=== PATIENT | female | born 1975 | race Caucasian/White ===

== ENCOUNTER 2025-02-15 23:19 | Emergency (ER) | payer MEDICAID, SELFPAY ==
--- OUTSIDE RECORDS SUMMARY | 2007-08-11 03:40 | XMS_ITS | Continuity of Care Document ---
Author Organization [facility] Address [address] [place] [address] Phone Care Team Providers Care Unit Support Representative Name Role Phone Tran Lewis CNP Unavailable Unavailab le Allergies, Adverse Reactions, Alerts Substance Reaction Status Criticality rofecoxib Active No Information TRAZODONE HCL Active No Information risperidone Active No Information KETOROLAC TROMETHAMINE Active No In formation tramadol Active No Information clindamycin Active No Information CEFUROXIME AXETIL Active No Informa tion WARNIN allergy(ies) could not be collected because the type is not supported. Please contact the source practice for further details. Medications Medication Instructions Dosage Effective Dates (start - stop) Status Comments Lidoderm 5 % (700 mg/patch) Adhesive Patch Apply 1 patch to skin for up to 12 hours out of a 24 hour period(script refused by patient due to lack of insurance coverage) - No Longer Active Vicodin 5 mg-500 mg Tab 1CAP PO Q4H - No Longer Active Zantac 150 mg Tab No Longer Active ALBUTEROL 90MCGAEROSOL - No Longer Active Vistaril 25 mg Cap 1CAP PO Q6H No Longer Active Klonopin 1 mg Tab 1CAP PO QD No Longer Active Lamictal 25 mg Tab No Longer Active WELLBUTRIN XL 300MGTABLET - No Longer Active Celexa 10 mg Tab - No Longer Active Procedures Procedure Date Offic Cons New/estab Mod-hi 60 08 Advance Directives Directive Yes / No Effective Date File Name No Information Encounters Encounter Description Practice Location Reason(s) For Visit Diagnoses Date Provider Providers Copied on Encounter Offic Cons New/estab Mod-hi [facility], [address], [place], [place], [id number], [place] tel:[phone] [facility] No Information 8 Elvin[address] Tran. [address], [address], [place], [place], [address], [place]. tel:[phone] Referring Provider: Gilson Ching MD, [address] [place], [address]. tel:[phone] Family History Family Member Type Diagnosis Age At Onset No Information Payers Payer name Insurance type Covered republican ID Authorbaljita tilorna(s) [employer] [id number] Social History Type Description Quantity Date Captured Comments Sex Female Smoking Status No Information Chief Complaint And Reason For Visit No Information Reason For Referral Reason For Referral No Information History Of Present Illness Encounter Date Complaint History Of Prese nt Illness No Information Functional Status Date Functional Assessmen t No Information Medications Administered Medication Instructions Dosage Effective Dates (start - stop) Status Comments Vicodin 5 mg-500 mg Tab 1CAP PO Q4H - No Longer Active Zantac 150 mg Tab No Longer Active ALBUTEROL 90MCGAEROSOL - No Longer Active Vistaril 25 mg Cap 1CAP PO Q6H No Longer Active Klonopin 1 mg Tab 1CAP PO QD No Longer Active Lamictal 25 mg Tab No Longer Active WELLBUTRIN XL 300MGTABLET - No Longer Active Celexa 10 mg Tab - No Longer Active Instructions Date Instruction Additional Infor mation No Information Assessments Type Assessment Date No Information Patient Care Teams Name Effective Dates (start - stop) Status Members No Information
--- OUTSIDE RECORDS SUMMARY | 2024-08-30 10:31 | XMS_ITS | Continuity of Care Document ---
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 Name Role Phone Simona Pereira CRNA Unavailable Unavailable Allergies, Adverse Reactions, Alerts Substance Reaction Status Criticality CEFUROXIME AXETIL Active No Informa tion ibuprofen Gastric Sleeve Active No Informatio n Sulfa (Sulfonamide Antibiotics) Angioedema Active No Information Medications Medication Instructions Dosage Effective Dates (start - stop) Status Comments escitalopram 20 mg tablet take 1 tablet by oral route every day 20 MG - Active lurasidone 40 mg tablet take 1 tablet by oral route every day with food (at least 350 calories) 40 MG - Active clonazepam 0.5 mg tablet take 1 tablet by oral route 2 times every day 0.5 MG - Active gabapentin 400 mg capsule take 1 capsule by oral route 3 times every day 400 MG - Active hydroxyzine HCl 50 mg tablet take 3 tablet by oral route every day 150 MG - Active propranolol 10 mg tablet take 2 tablet by oral route 3 times every day 20 MG - Active amitriptyline 100 mg tablet take 1 tablet by oral route every day at bedtime 100 MG - Active ZEPBOUND (unknown strength) inject by subcutaneous route every week for 4 weeks Not Available - No Longer Active Procedures Procedure Date Colonoscopy Flex; Dx (jan Pro) 25 Advance Directives Directive Yes / No Effective Date File Name No Information Encounters Encounter Description Practice Location Reason(s) For Visit Diagnoses Date Provider Providers Copied on Encounter [facility], [address] [address], [place], [place], [address], [place] tel:[phone] [facility] No Information 5 Randall Jarvis. [address], [place], [address] , [place]. tel: [phone] Referring Provider: Jaja Hart, [address], [place], [address] . tel:[phone] [facility], [address] [address], [place], [place], [address], [place] tel:[phone] [facility] GI Symptoms or Concerns (chief complaint) Hemorrhoids, unspecified hemorrhoid typeConstipation, unspecifiedDivertic ulosis of large intestine without perforation or abscess without bleedingUnspecified hemorrhoidsDivertic ulosis of large intestine without perforation or abscess without bleeding 5 Antonette Wilkinson. [address], [address] [facility] [address], [place], [address] , [place]. tel: [phone] Referring Provider: Ryan Mathew [facility], [address], [place], [address]. tel:[phone] [facility], [address] [address], [place], [place], [address], [place] tel:[phone] [facility] No Information 5 Apolinar Chavez. [address], [address] [facility] [address], [place], [id number] , [place]. tel: [phone] Family History Family Member Type Diagnosis Age At Onset Daughter Problem (finding) Asthma Mother Problem (finding) Gallbladder disease Sister Problem (finding) Asthma Father Problem (finding) Alcoholism Immunizations Vaccine Date Status Comments Influenza, recombinant, trivalent, injectable, preservative free administered Note: [facility] bi-direct ional interface ; Source: Other Registry SARS-COV-2 (COVID-19) vaccin e, mRNA, spike protein, LNP, preservative free, wilfredo-sucrose, 30 mcg/0.3 mL dose administered Note: [facility] bi-direct ional interface ; Source: Other Registry Afluria Qd administered Note: [facility] bi-directional interface ; Source: Other Registry SARS-COV-2 (COVID-19) vaccin e, mRNA, spike protein, LNP, preservative free, 50 mcg/0.5 mL dose administered Note: [facility] bi-direct ional interface ; Source: Other Registry SARS-COV-2 (COVID-19) vaccin e, mRNA, spike protein, LNP, bivalent, preservative free, 30 mcg/0.3 mL dose, wilfredo-sucrose formulation administered Note: [facility] bi-direct ional interface ; Source: Other Registry Havrix administered Note: [facility] bi-d irectional interface ; Source: Other Registry Havrix administered Note: [facility] bi-d irectional interface ; Source: Other Registry tetanus toxoid, reduced diphtheria toxoid, and acellular pertussis vaccine, adsorbed administered Note: [facility] b i-directional interface ; Source: Other Registry Pneumococcal conjugate vacci ne 20-valent (PCV20), polysaccharide COP009 conjugate, adjuvant, preservative free administered Note: [facility] bi-direct ional interface ; Source: Other Registry SARS-COV-2 (COVID-19) vaccin e, mRNA, spike protein, LNP, preservative free, 100 mcg/0.5mL dose or 50 mcg/0.25mL dose administered Note: [facility] bi -directional interface ; Source: Other Registry SARS-COV-2 (COVID-19) vaccin e, mRNA, spike protein, LNP, preservative free, 100 mcg/0.5mL dose or 50 mcg/0.25mL dose administered Note: [facility] bi -directional interface ; Source: Other Registry SARS-COV-2 (COVID-19) vaccin e, mRNA, spike protein, LNP, preservative free, 100 mcg/0.5mL dose or 50 mcg/0.25mL dose administered Note: [facility] bi -directional interface ; Source: Other Registry Influenza, split virus, trivalent, injectable, contains preservative administered Note: [facility] bi-direct ional interface ; Source: Other Registry tetanus toxoid, reduced diphtheria toxoid, and acellular pertussis vaccine, adsorbed administered Note: [facility] b i-directional interface ; Source: Other Registry Engerix-B administered Note: [facility] bi-d irectional interface ; Source: Other Registry Engerix-B administered Note: [facility] bi-d irectional interface ; Source: Other Registry Pneumovax 23 administered Note: [facility] bi-d irectional interface ; Source: Other Registry Engerix-B administered Note: [facility] bi-d irectional interface ; Source: Other Registry Influenza, split virus, trivalent, injectable, preservative free administered Note: [facility] bi-direct ional interface ; Source: Other Registry Twinrix administered Note: [facility] bi-d irectional interface ; Source: Other Registry tetanus toxoid, reduced diphtheria toxoid, and acellular pertussis vaccine, adsorbed administered Note: [facility] b i-directional interface ; Source: Other Registry tetanus toxoid, adsorbed administered Not e: [facility] bi-directional interface ; Source: Other Registry Payers Payer name Insurance type Covered alliance party ID Authoriza tion(s) [facility] [id number] Social History Type Description Quantity Date Captured Comments Sex Female Smoking Status No Information Chief Complaint And Reason For Visit No Information Reason For Referral Reason For Referral No Information History Of Present Illness Encounter Date Complaint History Of Prese nt Illness GI Symptoms or Concerns Functional Status Date Functional Assessmen t No Information Instructions Date Instruction Additional Infor mation Hemorrhoids (Internal) Related t o Hemorrhoids, unspecified hemorrhoid type Diverticulosis/Diverticulitis Re lated to Hemorrhoids, unspecified hemorrhoid type Hemorrhoids (External) Related t o Hemorrhoids, unspecified hemorrhoid type Assessments Type Assessment Date No Information Patient Care Teams Name Effective Dates (start - stop) Status Members No Information
[2025-02-15 23:27] VITALS: BP 153/110; PULSE 97; RESP 16; TEMP 36.6; O2SAT 99; BMI 33.1
--- NOTE | 2025-02-15 23:37 | CRLHL7_ITS ---
For Patients: As a result of the Cures Act, medical imaging exams and procedure reports are released immediately into your electronic medical record. You may view this report before your referring provider. If you have questions, please contact your health care provider. Indication: Injury, fall, pain Technique: Three views of the right shoulder Comparison: None Findings/Impression: Chronic fracture deformity and moderate osteoarthritis with no acute radiographic abnormality appreciated. Dictated by Sachin Geiger MD @ 02/16/2025 12:04:23 AM (Electronically Signed)
--- NOTE | 2025-02-15 23:38 | CRLHL7_ITS ---
For Patients: As a result of the Century Cures Act, medical imaging exams and procedure reports are released immediately into your electronic medical record. You may view this report before your referring provider. If you have questions, please contact your health care provider. INDICATION: Wrist Injury, fall, pain, fall down stairs TECHNIQUE: Wrist radiograph 3 views right COMPARISON: None FINDINGS: Bone: No acute fractures or aggressive bone lesions are identified. Joint: The radiocarpal, carpal, and carpometacarpal joints are unremarkable in appearance. Soft tissue: Unremarkable. No radiopaque foreign bodies are seen. IMPRESSION: 1. No acute osseous injuries are noted. Dictated by: Shane [place] MD @ 02/16/2025 00:05:09 (Electronically Signed)
--- NOTE | 2025-02-16 00:42 | ED.UPPEXIN ---
HPI - Extremity Injury (Upper) General Time Seen by Provider: 00:42 Date Seen: 02/16/25 Chief Complaint: Extremity Pain/Injury, Upper Stated Complaint: fall, right arm pain Time Seen by Provider: 02/16/25 00:01 Source: patient Mode of arrival: ambulatory History of Present Illness HPI narrative: Yomaira is a 49 year female who presents the emergency department for evaluation of right upper extremity pain. Patient reports that earlier tonight she was trying to help a friend caring a chair when she accidentally lost her balance, when she tried to brace herself an fell onto her right arm. Patient complains of pain to her right shoulder, right wrist. Patient denies any tingling, numbness, tried Tylenol with no improvement of symptoms. Patient reports pain is worse with movement. Patient is not on chronic anticoagulation. No other complaints. Related Data Home Medications ?Medication ?Instructions ?Recorded ?Confirmed amitriptyline 100 mg tablet 100 mg PO QHS 02/15/25 02/15/25 citalopram 20 mg tablet (Celexa) 20 mg PO DAILY 02/15/25 02/15/25 clonazepam 0.5 mg tablet 0.25 mg PO BID 02/15/25 02/15/25 gabapentin 300 mg capsule 300 mg PO BID 02/15/25 02/15/25 hydroxyzine HCl 50 mg tablet 50 mg PO QID 02/15/25 02/15/25 lurasidone 40 mg tablet (Latuda) 40 mg PO QPM 02/15/25 02/15/25 propranolol 10 mg tablet 10 mg PO Q12H 02/15/25 02/15/25 Allergies Allergy/AdvReac Type Severity Reaction Status Date / Time cefuroxime (From Ceftin) Allergy Hives Verified 02/15/25 23:33 droperidol Allergy Anxiety Verified 02/15/25 23:33 Sulfa (Sulfonamide Allergy Swelling Verified 02/15/25 23:33 Antibiotics) of Lip/Tongue/Throat topiramate (From Topamax) Allergy hive Verified 02/15/25 23:33 ketorolac (From Toradol) AdvReac Anxiety Verified 02/15/25 23:33 NSAIDS (Non-Steroidal AdvReac Verified 02/15/25 23:33 Anti-Inflamma tramadol AdvReac Anxiety Verified 02/15/25 23:33 Exam Narrative: Exam Narrative: General: Afebrile, in distress secondary to pain HEENT: Normocephalic, atraumatic, conjunctiva normal. MMM Neck: non-tender, supple Cardio: regular rate. regular rhythm Resp: Normal work of breathing, no respiratory distress, lungs clear bilaterally, no wheezing, rhonchi, rales Chest/Back: no visual signs of trauma, no midline tenderness, no CVA tenderness Abdomen: soft, non distension, no tenderness, no peritoneal signs Neuro: alert and fully oriented. CN II-XII grossly intact. Grossly normal strength and sensation in all extremities. MSK: no deformities. Normal active and passive range of motion however limited due to pain. Diffuse tenderness to palpation to right shoulder, right wrist with no obvious deformities, distally neurovascular intact Integumentary/Skin: no rash visualized, normal color Psych: normal affect, normal behavior Const: Vital Signs, click to edit/add: Vital Signs - 24 hr 02/15/25 23:27 Temperature 97.8 F Pulse Rate [Pulse Oximeter] 97 Respiratory Rate 16 Blood Pressure [Ri ght Upper Arm] 153/110 H Pulse Oximetry 99 Oxygen Delivery Me thod Room Air Course Vital Signs Vital signs: Initial Vital Signs Temperature 97.8 F 02/15/25 23:27 Temperature Source Temporal Artery Scan 02/15/25 23:27 Pulse Rate 97 02/15/25 23:27 Respiratory Rate 16 02/15/25 23:27 Blood Pressure 153/110 H 02/15/25 23:27 Blood Pressure Mean 124 H 02/15/25 23:27 Blood Pressure Position Sitting 02/15/25 23:27 Pulse Oximetry 99 02/15/25 23:27 Oxygen Delivery Method Room Air 02/15/25 23:27 Vital Signs Temperature 97.8 F 02/15/25 23:27 Pulse Rate 97 02/15/25 23:27 Respiratory Rate 16 02/15/25 23:27 Blood Pressure 153/110 H 02/15/25 23:27 Pulse Oximetry 99 02/15/25 23:27 Oxygen Delivery Method Room Air 02/15/25 23:27 Temperature 97.8 F 02/15/25 23:27 Pulse Rate 97 02/15/25 23:27 Respiratory Rate 16 02/15/25 23:27 Blood Pressure 153/110 H 02/15/25 23:27 Pulse Oximetry 99 02/15/25 23:27 Oxygen Delivery Method Room Air 02/15/25 23:27 MDM - Extremity Injury (Upper) MDM Narrative Medical decision making narrative: Yomaira is a 49 year female who presents the emergency department for evaluation of right upper extremity pain. Upon arrival patient is nontoxic appearing, afebrile, in distress secondary to pain. Patient hypertensive upon arrival but otherwise hemodynamically stable. On examination patient with tenderness to patient to her right shoulder as well as her right wrist. Patient does have full active and passive range of motion however does report pain with range of motion. Distally neurovascular intact. No obvious deformities. Patient was treated with oxycodone, ice upon arrival. I personally reviewed interpreted x-rays of the right shoulder and right wrist. Right shoulder with chronic fracture deformity a moderate osteoarthritis with no acute fracture dislocation. X-ray of the wrist with no acute fracture or dislocation. I discussed results with patient. Patient was placed into a wrist brace/splint for comfort. Recommend ice, Tylenol, oxycodone as needed for severe pain. Encourage close outpatient follow-up in the next 5-7 days if no improvement of symptoms for repeat imaging. Return precautions discussed. Patient understands and agrees with the plan. Discharge Plan Discharge Clinical Impression: Acute shoulder pain, Acute pain of right wrist Patient Disposition: Home, Self-Care Condition: Stable Additional Instructions: Please follow-up with your primary care provider in the next 5-7 days for further evaluation and follow-up if you continue to have pain. You may need repeat x-rays at this time. Please ice, take Tylenol 1000 mg every 6 hours as needed for pain. Please take oxycodone 1 tablet every 6 hours as needed for severe pain. Wear wrist splint for comfort. Please bear weight as tolerated. Return to the emergency department if any worsening symptoms. It was a pleasure taking care of you today. We hope you feel better soon. Prescriptions: No Action citalopram [Celexa] 20 mg tablet 20 mg PO DAILY gabapentin 300 mg capsule 300 mg PO BID hydroxyzine HCl 50 mg tablet 50 mg PO QID propranolol 10 mg tablet 10 mg PO Q12H lurasidone [Latuda] 40 mg tablet 40 mg PO QPM Rx Instructions: must administer with food (at least 350 calories) amitriptyline 100 mg tablet 100 mg PO QHS clonazepam 0.5 mg tablet 0.25 mg PO BID Follow Up/Referrals: Provider,Not a Local [Primary Care Provider, Family Practice] Stand Alone Forms: 908 Devices Info Instructions
--- OUTSIDE RECORDS SUMMARY | 2025-02-16 01:29 | XMS_ITS | Patient Health Record ---
Author Organization [facility] Address [address] [place] [address] [place] [address] Care Team Providers Care Configuration Engineer Name Role Phone ALFONSO BRADSHAW PA-C Primary Care Provider Unavailab le Allergies Allergen (clinical drug ingredient) Drug/Non Drug Allergy documented on EMR Reaction Allergy Type Onset Date Status Ceftin rash Drug Allergy Active droperidol Droperidol anxiety Drug Allergy Activ e Haldol hallucinations Drug Allergy Ac tive risperidone Risperdal unknown Drug Allergy Activ e quetiapine SEROquel Unknown Drug Allergy Active topiramate Topiramate hives Drug Allergy Activ e Sulfa (Sulfonamide Antibiotics) edema Drug Allergy Active rofecoxib Vioxx (uncoded) nausea and vomiting Allergy Active tramadol Tramadol (uncoded) other Allergy Active ketorolac Toradol (uncoded) other Allergy Ac tive clindamycin Clindamycin (uncoded) nausea and vomiting Allergy Active trazodone Trazodone (uncoded) hallucinations Allergy Active quetiapine Quetiapine (uncoded) agitation Allergy Active cortisone Cortisone Unknown Drug Allergy Active Non-steroidal anti-inflammatory agent (FN) NSAIDs Unknown Drug Allergy Active risperidone Risperidone Unknown Drug Allergy Act juliana Reason For Referral No Information Medications Medication SIG (Take, Route, Frequency, Duration) Notes Start Date End Date Status Acetaminophen PRN Active Multi Complete/Iron - 1 chewable tablet Orally once a day Procare Active Varenicline Tartrate 1 MG 1 tablet Orally Twice a day Active Gabapentin 800 MG 1 tablet Orally three times per day anxiety Active Melatonin 5 MG 1 tablet in the evening Orally Once a day; Duration: 30 day(s) PRN Active Wixela Inhub 100-50 MCG/DOSE 1 puff Inhalation Twice a day Active busPIRone HCl 30 MG 1 tablet Orally Twice a day anxiety/mood Active Propranolol HCl ER 80 MG 1 capsule Orally twice a day axienty/mood Active hydrOXYzine HCl 50 MG 1 tablet Orally 4 times per day aniety/depressio n Active Omeprazole 20 MG 1 capsule 30 minutes before morning meal Orally Once a day; Duration: 30 day(s) Active Albuterol Sulfate HFA 108 (90 Base) MCG/ACT 2 puffs as needed Inhalation every 6 hrs asthma as needed Active Amitriptyline HCl 100 MG 2 tablet Orally Once a day at bedtime SLEEP Active Other Calcium 1 tablet orally three times per day Active Ondansetron 4 MG 2 tablets Orally every 8 hours prn PRN Active Robaxin 500 MG 1 tablets Orally once a day as needed Unknown Social History Tobacco Use: Social History Observation Description Date Details (start date - stop date) Former Smoker NA - NA Tobacco Use/Smoking Question Answer Notes Are you a former smoker Tobacco use other than smoking: Question Answer Notes Are you an other tobacco user? Yes v aping---VAPING STOPPED Section Notes: Quit smoking 09/11/18. No Met hamphetamine use since May 2017 & no opioids or marijuana since November 2015 Quit smoking 09/11/18. No Methamphetamine use since May 2017 & no opioids or marijuana since November 2015 Pt fully vaccinated. Quit smoking 09/11/18. No Methamphetamine use since May 2017 & no opioids or marijuana since November 2015 Pt fully vaccinated. Quit smoking 09/11/18. No Met hamphetamine use since May 2017 & no opioids or marijuana since November 2015 Quit smoking 09/11/18. No Met hamphetamine use since May 2017 & no opioids or marijuana since November 2015 Quit smoking 09/11/18. No Met hamphetamine use since May 2017 & no opioids or marijuana since November 2015 Quit smoking 09/11/18. No Met hamphetamine use since May 2017 & no opioids or marijuana since November 2015 Problems Problem Type SNOMED Code ICD Code Onset Dates Problem Status W/U Status Risk Notes Problem Essential hypertension (32417439) Essential hypertension (I10) Active confirmed Problem Heartburn (73997952) Heartburn (R12) Active confirmed Problem Epigastric pain (66485565) Epigastric pain (R10.13) Active confirmed Problem Nausea (180349574) Nausea (R11.0) Active confir med Problem Obesity (504266155) Obesity, Class I & II (E66.09) Active confirmed Problem Obstructive sleep apnea syndrome (disorder) (70577739) Obstructive sleep apnea (adult) (pediatric) (G47.33) Active confirmed Problem Chronic pain (27126336) Other chronic pain (G89.29) Active confirmed Problem Pain of right knee region (finding) (656464444726032) Pain in right knee (M25.561) Active confirmed Problem Pain of left knee joint (finding) (712074692806446) Pain in left knee (M25.562) Active confirmed Problem History of bariatric surgical procedure (392502335) Bariatric surgery status (Z98.84) Active confirmed Problem 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 (770011626) Dependence on other enabling machines and devices (Z99.89) Active confirmed Problem Former smoker (3382845) Former smoker (Z87.891) Active confirmed Problem Body mass index 40+ - severely obese (133595459) BMI 45.0-49.9, adult (Z68.42) Active confirmed Problem Body mass index 40+ - morbidly obese (943028351) BMI 40.0-44.9, adult (Z68.41) Active confirmed Problem Postoperative follow-up visit (551665173) Post op follow-up exam (Z48.89) Active confirmed Problem Body mass index 40+ - severely obese (492402169) BMI 50.0-59.9, adult (Z68.43) Active confirmed Problem Ex-smoker (finding) (6073612) History of cigarette smoking (Z87.891) Active confirmed Problem Dietary management surveillance (486958008) Dietary counseling (Z71.3) Active confirmed Problem History of methamphetamine abuse (86556216951627048 ) History of methamphetamine abuse (Z87.898) Active confirmed Problem Postoperative care (regime/therapy) (507072609) Encounter for postoperative care (Z48.89) Active confirmed Problem Constipation (40937638) Constipation, unspecified constipation type (K59.00) Active confirmed Problem Smoking (31355549) Smoking (F17.200) Active con firmed Problem Obese class II (584217512585466) BMI 36.0-36.9,adult (Z68.36) Active confirmed Problem Weight gain (701640745) Weight gain (R63.5) Active confirmed Problem Morbid obesity (393124882) Morbid obesity due to excess calories (E66.01) Active confirmed Problem Electronic cigarette user (finding) (552600526) Electronic cigarette use (Z78.9) Active confirmed Problem History of bariatric surgical procedure (688219121) Status post bariatric surgery (Z98.84) Active confirmed Problem Asthma without status asthmaticus (17593098) Asthma, unspecified asthma severity, unspecified whether complicated, unspecified whether persistent (J45.909) Active confirmed Problem Sleep apnea (11392910) Sleep apnea in adult (G47.30) Active confirmed Problem Insomnia (713600344) Insomnia, unspecified type (G47.00) Active confirmed Problem History of opioid abuse (323147349732459) History of opioid abuse (Z87.898) Active confirmed Problem Body mass index 40+ - severely obese (896961931) Body mass index [BMI] 45.0-49.9, adult (Z68.42) Active confirmed Plan Of Treatment No Information Insurance Providers Payer Name Payer Address Payer Phone Subscriber Number Group Number Insured Name Patient Relationship to Insured Coverage Start Date Coverage End Date [facility] [address] [place] [phone] [id number] SÁNCHEZ LUACS Self - patient is the insured Medical (General) History Medical History History ICD Code morbid obesity, class III - BMI 40-49.9 other specified viral warts schizophrenia bipolar I disorder personality disorder panic disorder without agoraphobia unspecified asthma cough palpitations esophageal reflux ovarian cyst PTSD unspecified drug dependence Meth/opiates high blood pressure Depression Anxiety Sleep Apnea-CPAP ( no cpap) Sleeve Vertigo acute pain of left knee tobacco abuse - former smoker - quit 09/20 DVT asthma urinary frequency f/h breast cancer - maternal aunt, pater nal grandmother constipation binge eating disorder Surgical History Surgery Date(Month/Year) tubal ligation 2002 imo remove replace antibiot beads, knee LEFT RIGHT knee surgery 07/24/2020 hysterectomy dental procedure x 2 upper GI endoscopy - Dr Kaur Solano (1) lap sleeve gastrectomy; (2) TAP block; (3) intraoperative endoscopy - Dr Kaur Solano 01/30/2019 left knee surgery 05/14/2020 left carpal tunnel 12/11/2020 RIGHT rotar cuff surgery Hospitalization History Reason Date(Month/Year) Mental health ( over 10 years ago) Previous surgeries x 2
--- OUTSIDE RECORDS SUMMARY | 2025-02-16 01:29 | XMS_ITS | Clinical Summary ---
Author Organization [employer] [facility] Address [facility] [place] [address] Care Team Providers Care Wad Impregnator Name Role Phone Peggy Crowe RN Unavailable [phone] Evangelista Miranda MD Unavailable [phone] Unavailable [phone] Ryan Mathew CHIEF BUSINESS DEVELOPMENT OFFICER Primary Care Provider [phone] Allergies Active Allergy Reactions Criticality Noted Date Comments Cefuroxime Rash 09/06/2005 Clindamycin Nausea And Vomiting 09/06/2005 Cortisone Anxiety 02/10/2020 Droperidol Anxiety 09/22/2011 Haloperidol Hallucinations 03/06/2014 Lamotrigine Agitation 08/18/2023 Nsaids (Non-Steroidal Anti-Inflammatory Drug) Nausea Only 07/25/2005 Hx of Gastric Bypass Quetiapine Agitation 05/20/2009 Quetiapine Agitation,Anxiety,*U nkn own High 05/20/2009 Risperidone Analogues *Unknown 01/25/2006 pt states does not mix well with other meds Sulfa (Sulfonamide Antibiotics) Edema 09/06/2005 Topiramate Rash 02/10/2020 Ketorolac Other - Describe In Comment Field 09/06/2005 pt reports tic-like behaviors (JUMPY) Tramadol Other - Describe In Comment Field 09/06/2005 reports tic-like behaviors (JUMPY) Trazodone Hallucinations 07/13/2007 Rofecoxib Nausea And Vomiting 09/06/2005 plus also gets jumpy Medications escitalopram oxalate (LEXAPRO) 10 mg tablet Take 20 mg by mouth every morning. Active melatonin 10 mg tab Take 10 mg by mouth at bedtime if needed (for sleep). Active gabapentin (NEURONTIN) 300 mg capsule Take 600 mg by mouth two times daily. Active hydrOXYzine HCL (ATARAX) 50 mg tablet Take 50 mg by mouth every 8 hours if needed (anxiety). Active amitriptyline (ELAVIL) 100 mg tablet Take 1 Tablet by mouth at bedtime. Active clonazePAM (KLONOPIN) 0.5 mg tablet Take 0.5 mg by mouth once daily. Active fluticasone propion-salmeteroL (Wixela Inhub) 250-50 mcg/Dose diskus inhalerIndications :Asthma, unspecified asthma severity, unspecified whether complicated, unspecified whether persistent (HC) Inhale 1 Puff by mouth every 12 hours. 60 Each Active albuterol HFA (Ventolin HFA) 90 mcg/actuation inhalerIndications :Exacerbation of asthma, unspecified asthma severity, unspecified whether persistent (HC) Inhale 2 Puffs by mouth 4 times daily if needed for Shortness Of Breath. 18 g 2 09/22/19 24 8:29 AM CDT Active cholecalciferol, Vitamin D3, (Vitamin D-3) 5,000 unit tab tabletIndications: S/P biliopancreatic diversion with duodenal switch Take 1 Tablet (5,000 units) by mouth once daily. Active calcium citrate-vitamin D3, 315 mg-250 units, (CITRACAL WITH VITAMIN D) 315 mg-6.25 mcg (250 unit) tab tabletIndications: S/P biliopancreatic diversion with duodenal switch Take 2 Tablets by mouth two times daily with meals. Active pediatric multivitamin no.42 (Children's Multivitamin) chewIndications:S/ P biliopancreatic diversion with duodenal switch Chew 2 Tablets by mouth two times daily. Active lurasidone (Latuda) 40 mg tabletIndications: Paranoia (HC) Take 1 Tablet (40 mg) by mouth with dinner. 11/06/2 024 Active propranoloL (INDERAL) 20 mg tabletIndications: Anxiety Take 1 Tablet (20 mg) by mouth two times daily. Active busPIRone (BUSPAR) 30 mg tablet buspirone 30 mg tablet TAKE 1 TABLET BY MOUTH TWICE DAILY Active ergocalciferol (,vitamin D2,) 50,000 unit capsule TAKE 1 CAPSULE BY MOUTH TWICE A WEEK FOR 8 WEEKS Active hydrOXYzine pamoate (VISTARIL) 50 mg capsule TAKE 1 CAPSULE BY MOUTH THREE TIMES DAILY NEEDED Active hyoscyamine sublingual (LEVSIN SL) 0.125 mg subl Ac tive Zinc Gluconate 30 mg tabletIndications: S/P biliopancreatic diversion with duodenal switch,Low zinc level Take 1 Tablet (30 mg) by mouth once daily. 30 Tablet 1 025 Active polyethylene glycoL (Miralax) 17 gram/scoop powderIndications: Constipation, unspecified constipation type Mix 1 scoop (17 g) in liquid then take by mouth once daily if needed for Constipation. 595 g 1 025 Active cyanocobalamin (VITAMIN B12) 1,000 mcg sublingual tabletIndications: S/P biliopancreatic diversion with duodenal switch Take 1000mcg oral every other day 30 Tablet 3 Active Zepbound 10 mg/0.5 mL penIndications:Cla ss 1 obesity with body mass index (BMI) of 34.0 to 34.9 in adult, unspecified obesity type, unspecified whether serious comorbidity present Inject 10 mg subcutaneous once weekly. 2 mL 3 025 Active ondansetron (ZOFRAN ODT) 4 mg disintegrating tabletIndications: S/P biliopancreatic diversion with duodenal switch DISSOLVE 1 TABLET IN MOUTH EVERY 8 HOURS NEEDED FOR NAUSEA AND VOMITING 30 Tablet 025 Active ondansetron (ZOFRAN ODT) 4 mg disintegrating tabletIndications: S/P biliopancreatic diversion with duodenal switch DISSOLVE 1 TABLET UNDER THE TONGUE EVERY 8 HOURS NEEDED FOR NAUSEA AND VOMITING 30 Tablet 025 2024 Discontinued Active Problems Problem Noted Date Diagnosed Date MDD (major depressive disord er), recurrent episode, moderate 04/30/2024 VALDO (generalized anxiety disorder) 04/30/2024 Methamphetamine dependence in remission 09/27/19 S/P conversion of sleeve to gastric bypass 09/20 Primary hypertension 09/21/2023 S/P laparoscopic sleeve gastrectomy 09/21/2023 Morbid obesity 09/21/2023 Obstructive sleep apnea 09/21/2023 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 09/21/2023 Arthritis of left knee 05/02/2020 Unspecified asthma(493.90) 07/13/2007 Unspecified schizophrenia, unspecified condition 04/05/2007 Bipolar I disorder, most rec ent episode (or current) unspecified 04/05/2007 Unspecified personality disorder 04/05/2007 Panic disorder without agoraphobia 04/05/2007 Other specified viral warts 09/05/2006 Morbid obesity 01/25/2006 Resolved Problems Problem Noted Date Diagnosed Date Resolved Date DRUG SEEKING- INAPPROPRIATEL Y USES EMERGENCY ROOMS FOR HER CARE 09/07/2007 07/16/2024 Encounters Date Type Department Care Team Description 02/14/2025 1:45 PM CDT Telemedicine [facility] [address] [place] [address] Ashley Fontana LICSW Individual Therapy 02/11/2025 Travel 02/08/2025 Refill [facility] Weight [facility] [address] [place] [address] Riana Osorio, KAZ Refill Request (Ondansetron) 02/06/2025 Travel 02/04/2025 10:15 AM CDT Telemedicine [facility] [address] [place] [address] Ashley Fontana LICSW Individual Therapy 01/30/2025 Travel 01/25/2025 10:15 AM CDT Telemedicine [facility] [address] [place] [address] Ashley Fontana LICSW Individual Therapy 01/20/2025 Travel 01/17/2025 Telephone [facility] [address] [place] [address] Ashley Fontana BUSINESS EDUCATION TEACHER Mental Health Care Coordination 01/11/2025 10:15 AM CDT Telemedicine [facility] [address] [place] [address] Ashley Fontnaa LICSW Individual Therapy 01/06/2025 Travel 01/03/[address] [facility] [address] [place] [address] Riana Osorio, KAZ Refill Request (Ondansetron) 01/02/2025 12:00 PM CDT Telemedicine [facility] [address] [place] [address] Ashley Fontana LICSW Individual Therapy 01/02/2025 11:00 AM CDT Telemedicine [facility] [address] [place] [address] Riana Osorio, KAZ Telehealth ([facility] f/u ); Weight 01/01/2025 Travel 12/28/2024 Travel 12/26/[address] [facility] [address] [place] [address] Riana Osorio, KAZ Refill Request (Ondansetron) 11/16/2024 1:00 PM CDT Telemedicine [facility] [address] [place] [address] Ashley Fontana [facility] Late Cancel Appointment from Last 3 Months Immunizations Immunization Administration Dates Next Due HepA-HepB (Twinrix) 10/11/2008 Hepatitis A (Adult) 07/14/2022,10/22/2021 Hepatitis B (Adult) 01/26/2011,03/03/2010,2008 INFLUENZA, IIV3 PF (AGE >= 6 MO) 02/12/2009 Influenza, IIV3 (Age >=3 years) 03/19/2011 Influenza, IIV4 03/25/2023 Influenza, RIV3 (Age =>9 Years) 02/14/2024 Pneumococcal Conj 20-valent (Prevnar 20) 022 Pneumococcal Poly,23-Valent (Pneumovax) 03/03/20 10 Td (Age >=7 Years) 11/02/2006,08/11/2005 Tdap 10/22/2021,03/19/2011,01/10/2008 Tetanus Toxoid 09/21/2007 Family History Medical History Relation Name Comments Depression Daughter 1 Lindsey Alvarenga Depression Daughter 2 Columba Alvarenga Alcoholism Father Olvin Freih Allergies Father Olvin Freih Depression Father Olvin Freih Drug Abuse Father Olvin Freih Hypertension Father Olvin Freih Obesity Father Olvin Freih Psychiatric illness Father Olvin Freih Rheum arthritis Father Olvin Freih Stroke Father Olvin Freih Allergies Maternal Aunt Sona Barfield Anxiety disorder Maternal Aunt Sona Barfield Asthma Maternal Aunt Sonasánchez Barfield COPD Maternal Aunt Sonasánchez Barfield Coronary artery disease Maternal Aunt Sona Barfield Depression Maternal Aunt Sona Lico Drug Abuse Maternal Aunt Sona Lico Hypertension Maternal Aunt Sona Lico Rheum arthritis Maternal Aunt Sona Lico Coronary artery disease Maternal Grandfather Olvin Lico Heart failure Maternal Grandfather Olvin Lico Rheum arthritis Maternal Grandfather Olvin Lico Hypertension Maternal Grandmother Lindsey Lico Rheum arthritis Maternal Grandmother Lindsey Barfield Thyroid Disease Maternal Grandmother Lindsey Barfield Alcoholism Maternal Uncle Tevin Robel & Edgard Barfield Allergies Maternal Uncle Tevin Robel & Edgard Barfield Depression Maternal Uncle Tevin Robel & Edgard Barfield Drug Abuse Maternal Uncle Tevin Robel & Edgard Lico Hypertension Maternal Uncle Tevin Robel & Edgard Lico Allergies Mother Laurita Freih Anxiety disorder Mother Laurita Freih Coronary artery disease Mother Laurita Freih Depression Mother Laurita Freih Drug Abuse Mother Laurita Freih Heart failure Mother Laurita Freih Hypertension Mother Laurita Freih Psychiatric illness Mother Laurita Freih Rheum arthritis Mother Laurita Freih Coronary artery disease Paternal Grandfather Ronaldo Afua h Obesity Paternal Grandfather Ronaldo Freih Stroke Paternal Grandfather Ronaldo Freih Cancer-breast Paternal Grandmother Shannon Freih Psychiatric illness Sister 1 Allergies Sister 2 Heidi & Alyse Freih Anxiety disorder Sister 2 Heidi & Alyse Freih Depression Sister 2 Heidi & Alyse Freih Drug Abuse Sister 2 Heidi & Alyse Freih Hypertension Sister 2 Heidi & Alyse Freih Obesity Sister 3 Heidi Gardner Relation Name Status Comments Daughter 1 Lindsey Alvarenga Alive Daughter 2 Columba Alvarenga Alive Father Olvin Andrade Maternal Aunt Sona Barfield Alive Maternal Grandfather Olvin Barfield Alive Maternal Grandmother Lindsey Barfield Alive Maternal Uncle Tevin Huston & Edgard Barfield Alive Mother Laurita Andrade Paternal Grandfather Ronaldo Andrade Alive Paternal Grandmother Shannon Andrade Alive Sister 1 Sister 2 Heidi & Alyse Baronih Alive Sister 3 Heidi Gardner Alive Social History Tobacco Use Types Packs/Day Years Used Date Smoking Tobacco: Former Cigarettes 1 0.2 1 05/24/2019 - 06/23/2020 Smokeless Tobacco: Never Tobacco Cessation:Counseling Given: Not Answered Alcohol Use Standard Drinks/Week Comments Not Currently 0 (1 standard drink = 0.6 oz pur e alcohol) PHQ-2 Answer Date Recorded PHQ-2 TOTAL SCORE 3 02/13/2025 Social Connections Answer Date Recorded Do you often feel lonely or isolated from those around you? 0 03/02/2024 Financial Resource Strain Answer Date R ecorded Difficulty of Paying Living Expenses 3 02/06/2024 Difficulty of Paying Living Expenses Not on file 02/06/2024 Food Insecurity Answer Date Recorded Do you worry your food will run out before you are able to buy more? 1 03/02/2024 Transportation Needs Answer Date Record ed Does lack of transportation keep you from medica l appointments? 2 03/02/2024 Does lack of transportation keep you from work, meetings or getting things that you need? 1 03/02/2024 Housing Stability Answer Date Recorded What is your housing situation today? 1 03/02/2024 Utilities Answer Date Recorded Do you have trouble paying f or utilities (for example, heat, electricity, water, phone)? 1 03/02/2024 Comments No Sex and Gender Information Value Date Recorded Sex Assigned at Not on file Legal Sex Female 5:18 AM DATA PROCESSING CLERK Gender Identity Not on file Sexual Orientation Not on file Occupation Industry Job Start Date Job End Date unemployed Not on file Not on file Not on file Obstetrics History Last Filed Vital Signs Vital Sign Reading Time Taken Comments Blood Pressure 127/85 04/26/2024 10:01 AM DATA PROCESSING CLERK Pulse 81 04/26/2024 10:01 AM DATA PROCESSING CLERK Temperature 36.9 C (98.5 F) 04/26/2024 10:01 AM DATA PROCESSING CLERK Respiratory Rate 20 04/26/2024 10:01 AM DATA PROCESSING CLERK Oxygen Saturation 98% 04/26/2024 10:01 AM DATA PROCESSING CLERK Inhaled Oxygen Concentration - - Weight 79.4 kg (175 lb) 01/02/2025 10:00 AM CDT Height 152.4 cm (5') 01/02/2025 10:00 AM CDT Body Mass Index 34.18 01/02/2025 10:00 AM CDT Plan of Treatment Upcoming Encounters Date Type Department Care Team (Late st Contact Info) Description 02/27/2025 10:15 AM CDT Telemedicine [facility] [address] [place] [address] Marizol Ashley Orlando, BUSINESS EDUCATION TEACHER [address] [place] [address] 03/01/2025 1:00 PM CDT Telemedicine [facility] [address] [place] [address] Bienvenido Fontanaah Orlando, BUSINESS EDUCATION TEACHER [address] [place] [address] 03/11/2025 10:15 AM CDT Telemedicine [facility] [address] [place] [address] Marizol Ashley Orlando, BUSINESS EDUCATION TEACHER [address] [place] [address] 03/14/2025 12:00 PM CDT Telemedicine [facility] [address] [place] [address] Marizol Ashley Orlando, BUSINESS EDUCATION TEACHER [address] [address] 03/25/2025 11:00 AM DATA PROCESSING CLERK Telemedicine [facility] - [place] [address] [place] [address] Michelle Holly, RD [address] [place] [address] 03/25/2025 11:30 AM DATA PROCESSING CLERK Telemedicine [facility] - [place] [address] [place] [id number] Riana Osorio, CHIEF BUSINESS DEVELOPMENT OFFICER [address] [place] [address] 03/28/2025 1:00 PM DATA PROCESSING CLERK Telemedicine [facility] Mental Health - [facility] [address] [place] [address] Ashley Fontana, [facility] [address] [place] [address] Health Maintenance Due Date Last Done Comments Pap test for age 21-65 09/13/2009 09/13/2006 Lipids for age 45-75 2021 09/13/2006 Mammogram for age 45-75 2021 Influenza Vaccine (#1) 2025 , 03/25/2023, 03/19/2011, Additional history exists BMI (ht and wt on same day) for age 18+ 01/02/2026 01/02/2025, 09/26/2024, 09/26/2024, Additional history exists Depression screening for age 12+ 02/13/2026 02/13/2025, 01/02/2025, 09/26/2024, Additional history exists Tetanus booster 10/23/2031 10/22/2021, 02/21, 01/10/2008, Additional history exists Colonoscopy through age 75 08/30/2034 08/30/2024 RSV vaccine for adults or (1 - 1-dose 75+ series) 2051 HIV for age 15-65 Completed 09/13/2006 Hepatitis C screening for age 18-79 Completed 09/13/2006, 07/09/2005 Hepatitis B series for 19+ Completed 01/26, 03/03/2010, 03/20/2009, Additional history exists Pneumococcal series for age 6-49 Aged Out 10/22/2021, 03/03/2010 No longer eligibl e based on patient's age to complete this topic COVID-19 vaccine series Completed 02/14/20, 03/25/2023, 07/14/2022, Additional history exists Medical Devices Implanted Type Area Machine Hose Cutter Device Identifier Shelf Expiration Date Model / Serial / Lot Jimenez [employer] Nephew Size 3-44 Right 9mm Journey Ii Deep Dished Articular Insert Implanted:Qty: 1 on 07/24/2020 by Samra Moura MD at [facility] Ortho Total Joint Right: Knee [employer] 09/23/2028 [id number] / / [id number] Description:Jimenez&Nephtevin Marv rney II, XLPE, Size 3-4, Right, 9mm, Deep Dished Articular Insert Cmnt Bone Simplex P 1pk - [id number] Implanted:Qty: 1 on 05/08/2020 by Samra Moura MD at [facility] Left: Knee [employer] 06/22/2021 6191-1-001# / / [id number] Cmnt Bone Simplex P 1pk - [id number] Implanted:Qty: 1 on 05/08/2020 by Samra Moura MD at [facility] Left: Knee [employer] 09/19/2021 6191-1-001# / / [id number] Patella Sz29 Antionette Ii Oval Non Pors - [id number] Implanted:Qty: 1 on 05/08/2020 by Samra Moura MD at [facility] Left: Knee [employer] 12/25/2029 [id number] / / [id number] Baseplate Tib Lt Sz 3 Production Technologist Journey - [id number] Implanted:Qty: 1 on 05/08/2020 by Samra Moura MD at [facility] Left: Knee [employer] 12/03/2029 [id number] / / [id number] Fem Lt Sz4 Journey Ii Cru Ret Oxin Non Pors - [id number] Implanted:Qty: 1 on 05/08/2020 by Samra Moura MD at [facility] Left: Knee [employer] 10/29/2029 [id number]# / / [id number] [employer]hew Journey Deep Dished Articular Insert Size 3-4, 11mm [id number] - [id number] Implanted:Qty: 1 on 05/08/2020 by Samra Moura MD at [facility] Left: Knee 06/23/2023 [id number] / / [id number] Baseplate Tib Rt Sz 3 Production Technologist Journey - [id number] Implanted:Qty: 1 on 07/24/2020 by Samra Moura MD at [facility] Right: Knee [employer] 04/07/2030 [id number] / / [id number] Fem Rt Sz 4 Journey Ii Cru Retoxin Non Pors - [id number] Implanted:Qty: 1 on 07/24/2020 by Samra Moura MD at [facility] Right: Knee [employer] 12/02/2029 [id number] / / [id number] Cmnt Bone Simplex P 1pk - [id number] Implanted:Qty: 1 on 07/24/2020 by Samra Moura MD at [facility] Right: Knee [employer] 07/20/2021 6191-1-001 / / [id number] Cmnt Bone Simplex P 1pk - [id number] Implanted:Qty: 1 on 07/24/2020 by Samra Moura MD at [facility] Right: Knee [employer] 09/19/2021 6191-1-001 / / [id number] Patella Sz 29 Antionette Ii Oval Non Pors - [id number] Implanted:Qty: 1 on 07/24/2020 by Samra Moura MD at [facility] Right: Knee [employer] 03/14/2026 [id number] / / [id number] Speedbridege Implant Systme With Scorpion Multifire Needle [id number] - [id number] Implanted:Qty: 1 on 06/18/2021 by Samra Moura MD at [facility] 02/19/2023 [id number] / / [id number] Biocomposite Knotless Swivlelock [place] 4.75x19.1mm With Whiteblack [place] Tape [id number] - [id number] Implanted:Qty: 1 on 06/18/2021 by Samra Moura MD at [facility] 11/19/2024 [id number] / / [id number] Procedures Procedure Name Priority Date/Time Associated Diagnosis Comments SCAN-COLONOSCOPY 08/30/2024 3:30 PM CDT ANTI HIV 1/2 Routine 09/13/2006 4:28 PM CDT Screening Exam Venereal Disease ANTI HCV Routine 09/13/2006 4:28 PM CDT Screening Exam Venereal Disease CHOLESTEROL,TOTAL Routine 09/13/2006 4:2 8 PM CDT Screening Lipid Disorders REGULATORY ADMINISTRATOR THIN PREP PAP SCREEN IMAGED Routine 09/13/2006 4:27 PM CDT Screening Malignant Neoplasms Cervix from Last 3 Months or Most Recently Relevant to Health Maintenance Results * SCAN-COLONOSCOPY (08/30/2024 3:30 PM CDT) Narrative Procedure Note Jaja Whitman MD - 08/30/2024 2:11 PM CDT [facility] [address] [place] [address], [address], [place] [address] Patient Name: Yomaira Alvarenga Gender: Female Exam Date: 08/30/2024 Visit Number: [id number] Age: 49 Years 2 Months Date of : 1975 Attending MD: Jaja Whitman MD Medical Record#: [id number] ----- Procedure: Colonoscopy Indications: Colorectal cancer screening Referring MD: Ryan Mathew INSIDE SALES AGENT Primary MD: Ryan Mathew INSIDE SALES AGENT Medications: Admitting Medications: 0.9% Normal Saline at TKO Intra Procedure Medications: Patient received monitored anesthesia care. Complications: No immediate complications Procedure: An examination of the heart and lungs was performed and found to be withinacceptable limits. The patient was therefore deemed a reasonablecandidate for endoscopy and monitored anesthesia care. The risks, benefits and plan of the procedure were discussed with thepatient and/or patient denial management representative and all questions were answered. After obtaining informed consent, the patient received monitoredanesthesia care and I passed the scope without difficulty via the rectum to the ileum. The appendiceal orifice and ic valve were identified. The scope wasretroflexed during the examination The quality of the prep was fair(Miralax/Gatorade Double Prep). This was a complete examination throughout the entire colon. Findings: Normal finding. Location - ileum. Diverticulosis. Location: - ascending colon - sigmoid. Description:mild. Hemorrhoids. Internal and external hemorrhoids without bleeding. Remainder of the exam is normal. Impression: Diverticulosis of colon without diverticulitis Hemorrhoids, unspecified hemorrhoid type impression comments: Recommend taking miralax twice a day the weekprior to next colonoscopy to improve visualization. Plan Repeat colonoscopy in 3 years. We will attempt to contact you at appropriate intervals via U.S. mail. Wemay not be able to find you or contact you at that time, therefore youshould know that the responsibility for following our recommendation restswith you. If you don't hear from us at the time your procedure is due,please contact our office to schedule an appointment. If your contactinformation should change, please contact our office so that we can updateyour records. Electronically signed by: Jaja Whitman MD 08/30/2024 Medications: Medication Dose Sig Description PRN Status PRN Reason Comments amitriptyline 100 mg tablet 100 mg take 1 tablet by oral route every dayat bedtime N taking as directed clonazepam 0.5 mg tablet 0.5 mg take 1 tablet by oral route 2 times everyday N taking as directed escitalopram 20 mg tablet 20 mg take 1 tablet by oral route every day Ntaking as directed gabapentin 400 mg capsule 400 mg take 1 capsule by oral route 3 timesevery day N taking as directed hydroxyzine HCl 50 mg tablet 50 mg take 3 tablet by oral route every dayN taking as directed lurasidone 40 mg tablet 40 mg take 1 tablet by oral route every day withfood (at least 350 calories) N taking as directed propranolol 10 mg tablet 10 mg take 2 tablet by oral route 3 times everyday N taking as directed Zepbound UNKNOWN inject by subcutaneous route every week for 4 weeks N Allergies: Medication Name Ingredient Reaction Comment Ceftin CEFUROXIME AXETIL Sulfa SULFA (SULFONAMIDE ANTIBIOTICS) Angioedema Motrin IBUPROFEN Gastric Sleeve Vital Signs: Date Time Systolic Diastolic Height Weight BMI 08/30/2024 2:34 PM 143 85 60 in 189.19 36.90 Race: White Preferred Language: Belarusian cc: Ryan Mathew CNP cc: Ryan Mathew [facility] [phone] us Jaja Whitman MD OTHER Final Result * ANTI HCV (09/13/2006 4:28 PM CDT) Pathologist [facility] ANTI HCV Non-reacti ve [facility] Blood specimen (specimen) BLOOD SPECIMEN / Unknown 09/13/2006 4:28 PM CDT 09/13/2006 4:24 PM CDT us Gilson Ching MD SEND OUTS Final Resu lt [facility] INTERNAL ZIP [id number] [address] [address] * (ABNORMAL) CHOLESTEROL,TOTAL (09/13/2006 4:28 PM CDT) Pathologist [facility] CHOLESTEROL,TO KAMLESH 262(H) 110 - 199 mg/dL [facility] Blood specimen (specimen) BLOOD SPECIMEN / Unknown 09/13/2006 4:28 PM CDT 09/13/2006 4:24 PM CDT Gilson Ching MD CHEMISTRY Final Resu lt [facility] INTERNAL ZIP [id number] [address] * ANTI HIV 1/2 (09/13/2006 4:28 PM CDT) Pathologist [facility] ANTI HIV 1/2 Non-reacti ve [facility] Blood specimen (specimen) BLOOD SPECIMEN / Unknown 09/13/2006 4:28 PM CDT 09/13/2006 4:24 PM CDT Gilson Ching MD SEND OUTS Final Resu lt Performing Organization Address City/[facility]/ZIP Co de Phone Number [facility] INTERNAL ZIP [phone] [address] * REGULATORY ADMINISTRATOR THIN PREP PAP SCREEN IMAGED (09/13/2006 4:27 PM CDT) Pathologist [facility] CYTOLOGY CYTOPATHOLOGY REPORT [facility] [place] Status: Final Report [id number] CLINICAL INFORMATION LMP : 09/05/06 Previous Pap Date : 3YR AGO Previous PAP Dx : Negative for intraepithelial lesion or malignancy. Previous [place]/bx date : None Previous Colposcopy/Bx: None Hormone Usage : None Menstrual Status : Regular Periods Appearance of Cervix : Not given [place]/Bx done today : No HPV Request : Reflex HPV test if PAP Dx ASCUS SPECIMEN SOURCE : Cervical/vaginal ThinPrep Vial, screening SPECIMEN ADEQUACY : Satisfactory for evaluation Endocervical component present. INTERPRETATION/RES ULT: Negative for intraepithelial lesion or malignancy. Organisms Shift in jami suggestive of bacterial vaginosis Cytology 1st Screener : jessica Signed by: jessica This specimen was screened by the FDA approved ThinPrep Imaging System and manually reviewed. NOTE: The Pap test is a screening technique, not a diagnostic procedure. It is used primarily to screen for squamous cancers and precursor lesions. Published studies have shown that it is subject to both false negative and false positive results. The pap test should not be used as the sole means to diagnose or exclude pre-malignant and malignant lesions. 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 Expl anation Healthcare Directive 09/20/2023 024 * Full Code (Latest Code Status on File) Date Activated Date Inactivated Comments 09/21/2023 5:57 AM 09/22/2023 2:13 PM Question Answer Comments Code Status Discussion: Not Discussed * Full Code Date Activated Date Inactivated Comments 06/18/2021 8:32 AM 06/18/2021 6:13 PM Question Answer Comments Code Status Discussion: Not Discussed * Full Code Date Activated Date Inactivated Comments 07/24/2020 5:47 AM 07/24/2020 7:43 PM Question Answer Comments Code Status Discussion: Per Existing Order * Full Code Date Activated Date Inactivated Comments 07/24/2020 5:47 AM 07/24/2020 5:47 AM Question Answer Comments Code Status Discussion: Per Existing Order * Full Code Date Activated Date Inactivated Comments 05/08/2020 5:35 AM 05/08/2020 8:35 PM Question Answer Comments Code Status Discussion: Per Existing Order Care Teams Wad Impregnator Relationship Specialty Start Date End Date Ryan Mathew, CHIEF BUSINESS DEVELOPMENT OFFICER [address] [place], [place] [address] PCP - General Nurse Practitioner 06/13/24 Peggy Crowe RN [address] [phone] Spare Parts Clerk Registered Nurse 11/25/22 Evangelista Miranda MD [address] [phone] Consulting Physician Surgery - General 11/25/[address] [facility] [address] [place] [address] Supervisor Stripping 10/25/23
--- OUTSIDE RECORDS SUMMARY | 2025-02-16 01:29 | XMS_ITS | Clinical Summary ---
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 Recommend avoiding NSAIDs if possible. If deemed beneficial needs concurrent PPI and close medical supervision. pt reports tic-like behaviors (JUMPY) Lamotrigine Agitation 08/18/2023 Nalbuphine Hcl Rash Low 09/13/2009 Nsaids (Non-Steroidal Anti-Inflammatory Drug) Nausea Only Medium 07/25/2005 Hx of Gastric Bypass Not a true allergy but need to weigh benefit vs risk. Recommend avoiding NSAIDs if possible. If deemed beneficial needs concurrent PPI and close medical supervision. Hx of Gastric Bypass Quetiapine Agitation,Anxiety High 05/20/2009 Risperidone Analogues Anxiety,Other,Unknown Low 10/09/2005 pt states does not mix well with other meds Rofecoxib Anxiety,Nausea And Vomiting,Nausea Only Medium 09/06/2005 plus also gets jumpy Not a true allergy but need to weigh benefit vs risk. Recommend avoiding NSAIDs if possible. If deemed beneficial needs concurrent PPI and close medical supervision. plus also gets jumpy Sulfa (Sulfonamide Antibiotics) Anaphylaxis,Edema,Lip swelling,Other,Swellin g High 09/06/2005 Pt was told this happened in childhood Topiramate Hives,Other,Rash Medium 02/10/2020 Tramadol Anxiety,Other Medium 09/06/2005 reports tic-like behaviors (JUMPY) Trazodone Anxiety,Hallucinations Medium 07/13/2007 Other reaction(s): Hallucinations Medications Ventolin HFA 90 mcg/actuation inhaler INHALE 2 PUFFS BY MOUTH EVERY 4 HOURS DIRECTED NEEDED 09/22/2023 Active amitriptyline (Elavil) 100 mg tablet Take 1 tablet by mouth at bedtime. Active clonazePAM (KlonoPIN) 0.5 mg tablet TAKE 1 TABLET BY MOUTH ONCE DAILY NEEDED Active ergocalciferol (Vitamin D-2) 1.25 MG (16216 UT) capsule TAKE 1 CAPSULE BY MOUTH TWICE A WEEK FOR 8 WEEKS Active escitalopram (Lexapro) 20 mg tablet Take 1 tablet by mouth in the morning. Active fluticasone propion-salmete roL (Advair Diskus) 250-50 mcg/dose diskus inhaler 09/22/2023 Active gabapentin (Neurontin) 400 mg capsule Take 1 capsule by mouth in the morning and at bedtime. Active magnesium hydroxide (Milk of Magnesia) 400 mg/5 mL suspension 09/21/2023 Active melatonin 10 mg tablet,disinteg rating Take 10 mg by mouth. Active polyethylene glycol, PEG, 3350 (Miralax) 17 gram packet Take 17 g by mouth. 09/21/2023 Active propranolol (Inderal) 20 mg tablet Take 1 tablet by mouth in the morning and at bedtime. Active Gas-X Extra Strength 125 mg capsule 09/23/2023 Active Active Problems Problem Noted Date Diagnosed Date Binge-eating disorder, in full remission, mild 0 02/16/2024 Methamphetamine dependence in remission 09/27/19 24 Borderline personality disorder (CMS/HCC) 2022 Seasonal allergic rhinitis 12/26/2022 History of opioid abuse 08/19/2022 History of methamphetamine abuse 08/19/2022 Anxiety 05/01/2022 Mixed anxiety and depressive disorder 05/01/2022 PTSD (post-traumatic stress disorder) 05/01/2022 Arthritis of left knee 05/02/2020 Insomnia, unspecified 11/21/2018 Nightmare disorder 11/21/2018 Obstructive sleep apnea syndrome 11/21/2018 Primary hypertension 11/21/2018 Asthma 07/13/2007 Bipolar I disorder 04/05/2007 Schizophrenia 04/05/2007 Morbid obesity 01/25/2006 Social History Tobacco Use Types Packs/Day Years Used Date Smoking Tobacco: Former Cigarettes Smokeless Tobacco: Never Tobacco Cessation:Counseling Given: Not Answered Comments Unknown Sex and Gender Information Value Date Recorded Sex Assigned at Not on file Legal Sex Female 7:16 PM CDT Gender Identity Not on file Sexual Orientation Not on file Plan of Treatment Health Maintenance Due Date Last Done Comments Pneumococcal Vaccine: Pediat rics (0 to 5 Years) and At-Risk Patients (6 to 49 Years) (1 of 2 - PCV) 1995 RSV Vaccines (1 - 1-dose 75+ series) 2051
--- OUTSIDE RECORDS SUMMARY | 2025-02-16 01:29 | XMS_ITS | Data Portability ---
Author Organization [place] [facility] [employer] Address [address] [place] [address] Care Team Providers Care Can Line Examiner Name Role Phone RHODNA MATHEW Primary Care Provider [phone] [facility] OTHER [facility] OTHER SPECIALISTS IN GENERAL SURGERY [facility] THER Assessment Encounter Date Assessment Date Assessment LastModified by Organization Details LastModified Time 09/28/2022 09/28/2022 47 yo WW with hx of mild, largely REM - associated CARMEN Dx 2018 (then 254 lb), morbid obesity, s/p bariatric gastric sleeve surgery 01/31/2019, now presenting for reevaluation of possible sleep disordered breathing prior to revision of bariatric surgery. Other PMHx includes mental health challenges with h/o traumatic experiences, depression, anxiety, panic, PTSD, nightmares, borderline personality disorder, nasal allergies, asthma (both worse spring/winter), improved after quitting smoking several times - most recently ~ 1 year ago. She had used CPAP for a few months, then stopped after bariatric surgery (01/31/19) and subsequent weight loss. Had initially larger leak - improved after switch to different mask (intranasal pillows to nasal mask per her report). PSHX: Vag. deliveries 2000, 2001, tubal ligation 2003, hysterectomy 2013, bariatric gastric sleeve Sx 2018, L knee replacement 2019, R knee replacement 2020, L wrist CTS 2020, R wrist CTS 2021, R rotator cuff sx 2021. P-oximetry 93-95% sitting at rest, 98% after deep breaths, ht 5', wt 240 lb, BMI 46.9, neck circumference 18. BP 137/93, per her report usually lower. Had h/o HTN, currently no meds. Edentulous. Good air movement without wheezing. No LE edema. Meds - see list. Recently reduced doses for gabapentin & buspirone, also on lescitalopram, hydroxyzine, amitriptyline, propranolol, procare with iron, Ca citrate, Wegovy weekly injection, Wixela Inhub (fluticasone/amparo meterol), albuterol inhaler. cd[facility]m Not available 10/15/2022 17:51:03 10/26/2022 10/26/2022 47 yo WW with hx of mild, largely REM - associated CARMEN Dx 2018 (then 254 lb), morbid obesity, s/p bariatric gastric sleeve surgery 01/31/2019, now presenting for reevaluation of possible sleep disordered breathing prior to revision of bariatric surgery. Other PMHx includes mental health challenges with h/o traumatic experiences, depression, anxiety, panic, PTSD, nightmares, borderline personality disorder, nasal allergies, asthma (both worse spring/winter), improved after quitting smoking several times - most recently ~ 1 year ago. She had used CPAP for a few months, then stopped after bariatric surgery (01/31/19) and subsequent weight loss. Had initially larger leak - improved after switch to different mask (intranasal pillows to nasal mask per her report). PSHX: Vag. deliveries 2000, 2001, tubal ligation 2003, hysterectomy 2013, bariatric gastric sleeve Sx 2018, L knee replacement 2019, R knee replacement 2020, L wrist CTS 2020, R wrist CTS 2021, R rotator cuff sx 2021. P-oximetry 93-95% sitting at rest, 98% after deep breaths, ht 5', wt 240 lb, BMI 46.9, neck circumference 18. BP 137/93, per her report usually lower. Had h/o HTN, currently no meds. Edentulous. Good air movement without wheezing. No LE edema. Meds - see list. Recently reduced doses for gabapentin & buspirone, also on lescitalopram, hydroxyzine, amitriptyline, propranolol, procare with iron, Ca citrate, Wegovy weekly injection, Wix[employer] Inhub (fluticasone/amparo meterol), albuterol inhaler. cdahm Not available 10/26/2022 11:09:17 01/11/2023 01/11/2023 47 yo WW with hx of mild, largely REM - associated CARMEN Dx 2018 (then 254 lb), morbid obesity, s/p bariatric gastric sleeve surgery 01/31/2019, now presenting for reevaluation of possible sleep disordered breathing prior to revision of bariatric surgery. Other PMHx includes mental health challenges with h/o traumatic experiences, depression, anxiety, panic, PTSD, nightmares, borderline personality disorder, nasal allergies, asthma (both worse spring/winter), improved after quitting smoking several times - most recently ~ 1 year ago. She had used CPAP for a few months, then stopped after bariatric surgery (01/31/19) and subsequent weight loss. Had initially larger leak - improved after switch to different mask (intranasal pillows to nasal mask per her report). PSHX: Vag. deliveries 2000, 2001, tubal ligation 2003, hysterectomy 2013, bariatric gastric sleeve Sx 2018, L knee replacement 2019, R knee replacement 2020, L wrist CTS 2020, R wrist CTS 2021, R rotator cuff sx 2021. P-oximetry 93-95% sitting at rest, 98% after deep breaths, ht 5', wt 240 lb, BMI 46.9, neck circumference 18. BP 137/93, per her report usually lower. Had h/o HTN, currently no meds. Edentulous. Good air movement without wheezing. No LE edema. Meds - see list. Recently reduced doses for gabapentin & buspirone, also on lescitalopram, hydroxyzine, amitriptyline, propranolol, procare with iron, Ca citrate, Wegovy weekly injection, Wixela Inhub (fluticasone/amparo meterol), albuterol inhaler. PSG 11/12/2022 LU Solitario MD Interpretation: Baseline: 1. This study was performed in order to re-evaluate for CARMEN in patient with prior REM associated CARMEN (2019, wt 258 lb, REM-predominant CARMEN with AHI 13/h, RDI 15/h, mean O2 sat 92%, min. O2 sat 78%), morbid obesity, s/p bariatric Sx, now considering additional surgery. Meds: Gabapentin, buspirone, lescitalopram, hydroxyzine, amitriptyline, propranolol, procare w. iron, Ca citrate, Wegovy, Wixela Inhub, albuterol inhaler. 2. The total sleep time was 420.5 minutes. The sleep latency was short at 5 minutes. The REM sleep latency was delayed to 218.5 minutes. Stage N1: 20.5 min, 4.9 % Stage N2: 77 min, 18.3 % Stage N3: 282 min, 67.1 % Stage REM: 41 min, 9.8 % (low) Sleep efficiency was normal at 94.3%. Sleep architecture showed high N3, low REM, REM related sleep fragmentation. 3. Snoring: Was reported as mild. 4. Respiratory Events: A total 0 obstructive apneas, 0 central apneas, 0 mixed apneas, 45 obstructive hypopneas and 3 RERAs were noted for an RDI of 6.8 and an AHI of 6.4. The REM AHI was 38.0/h. Apnea Index, supine, Non-REM 0 and Apnea Index, supine, REM 0. Hypopnea Index, supine, Non-REM 3.6/h and Hypopnea Index supine, REM 40/h. The lowest O2 saturation was 85%, baseline O2 saturation 92-94%, reaching 99% with large breaths. This study is suggestive of mild sleep apnea on average with average AHI 6.4/h, however severe in REM with AHI 38/h. No prolonged desaturations suggestive of hypoventilation/ hypoxemia. Sleep maintenance insomnia symptoms are likely related to awakenings out of REM. Other: 1. EEG: No epileptiform activity was noted during this recording. 2. EMG: Periodic limb movements were noted in earlier part of the study. PLM index was 33.4/h. The PLM arousal index was 0/h with very few arousals noted throughout the study. LM seemed in part related to intermittent flow limitation vs mouth breathing (edentulous). Clinical correlation required. No lack of REM atonia. 3. EKG: No significant cardiac arrhythmias were noted. Recommendations and Orders: 1. This study shows largely REM associated sleep disordered breathing with REM AHI of 38/h, mild CARMEN on average (chrissy. with delay and low amount of REM). Given ongoing desaturations in REM similar to prior PSG, care must be taken especially in postop period to support patient s breathing and avoid hypoxemia. Would again use auto-titrating CPAP with mask of choice, min. pressure 5-8 cm per pt preference, max. pressure 15 cm, EPR per pt preference, heated humidity/tubing, and careful adjustment of therapy based on clinical experience and detailed download data. She will need excellent mask fit to avoid leak especially in REM. 2. Would suggest optimizing sleep hygiene measures, especially avoiding alcohol and sedatives. Avoiding sleep deprivation would also be beneficial. 3. The patient should avoid dangers of driving while excessively drowsy. 4. Weight management. [email or web address] Not available 03/04/2023 01:36:58 03/01/2023 03/01/2023 47 yo WW with hx of mild, largely REM - associated CARMEN Dx 2018 (then 254 lb), morbid obesity, s/p bariatric gastric sleeve surgery 01/31/2019, now presenting for reevaluation of possible sleep disordered breathing prior to revision of bariatric surgery. Other PMHx includes mental health challenges with h/o traumatic experiences, depression, anxiety, panic, PTSD, nightmares, borderline personality disorder, nasal allergies, asthma (both worse spring/winter), improved after quitting smoking several times - most recently ~ 1 year ago. She had used CPAP for a few months, then stopped after bariatric surgery (01/31/19) and subsequent weight loss. Had initially larger leak - improved after switch to different mask (intranasal pillows to nasal mask per her report). PSHX: Vag. deliveries 2000, 2001, tubal ligation 2003, hysterectomy 2013, bariatric gastric sleeve Sx 2018, L knee replacement 2019, R knee replacement 2020, L wrist CTS 2020, R wrist CTS 2021, R rotator cuff sx 2021. P-oximetry 93-95% sitting at rest, 98% after deep breaths, ht 5', wt 240 lb, BMI 46.9, neck circumference 18. BP 137/93, per her report usually lower. Had h/o HTN, currently no meds. Edentulous. Good air movement without wheezing. No LE edema. Meds - see list. Recently reduced doses for gabapentin & buspirone, also on lescitalopram, hydroxyzine, amitriptyline, propranolol, procare with iron, Ca citrate, Wegovy weekly injection, Wixela Inhub (fluticasone/amparo meterol), albuterol inhaler. PSG 11/12/2022 LU Solitario MD Interpretation: Baseline: 1. This study was performed in order to re-evaluate for CARMEN in patient with prior REM associated CARMEN (2019, wt 258 lb, REM-predominant CARMEN with AHI 13/h, RDI 15/h, mean O2 sat 92%, min. O2 sat 78%), morbid obesity, s/p bariatric Sx, now considering additional surgery. Meds: Gabapentin, buspirone, lescitalopram, hydroxyzine, amitriptyline, propranolol, procare w. iron, Ca citrate, Wegovy, Wixela Inhub, albuterol inhaler. 2. The total sleep time was 420.5 minutes. The sleep latency was short at 5 minutes. The REM sleep latency was delayed to 218.5 minutes. Stage N1: 20.5 min, 4.9 % Stage N2: 77 min, 18.3 % Stage N3: 282 min, 67.1 % Stage REM: 41 min, 9.8 % (low) Sleep efficiency was normal at 94.3%. Sleep architecture showed high N3, low REM, REM related sleep fragmentation. 3. Snoring: Was reported as mild. 4. Respiratory Events: A total 0 obstructive apneas, 0 central apneas, 0 mixed apneas, 45 obstructive hypopneas and 3 RERAs were noted for an RDI of 6.8 and an AHI of 6.4. The REM AHI was 38.0/h. Apnea Index, supine, Non-REM 0 and Apnea Index, supine, REM 0. Hypopnea Index, supine, Non-REM 3.6/h and Hypopnea Index supine, REM 40/h. The lowest O2 saturation was 85%, baseline O2 saturation 92-94%, reaching 99% with large breaths. This study is suggestive of mild sleep apnea on average with average AHI 6.4/h, however severe in REM with AHI 38/h. No prolonged desaturations suggestive of hypoventilation/ hypoxemia. Sleep maintenance insomnia symptoms are likely related to awakenings out of REM. Other: 1. EEG: No epileptiform activity was noted during this recording. 2. EMG: Periodic limb movements were noted in earlier part of the study. PLM index was 33.4/h. The PLM arousal index was 0/h with very few arousals noted throughout the study. LM seemed in part related to intermittent flow limitation vs mouth breathing (edentulous). Clinical correlation required. No lack of REM atonia. 3. EKG: No significant cardiac arrhythmias were noted. Recommendations and Orders: 1. This study shows largely REM associated sleep disordered breathing with REM AHI of 38/h, mild CARMEN on average (chrissy. with delay and low amount of REM). Given ongoing desaturations in REM similar to prior PSG, care must be taken especially in postop period to support patient s breathing and avoid hypoxemia. Would again use auto-titrating CPAP with mask of choice, min. pressure 5-8 cm per pt preference, max. pressure 15 cm, EPR per pt preference, heated humidity/tubing, and careful adjustment of therapy based on clinical experience and detailed download data. She will need excellent mask fit to avoid leak especially in REM. 2. Would suggest optimizing sleep hygiene measures, especially avoiding alcohol and sedatives. Avoiding sleep deprivation would also be beneficial. 3. The patient should avoid dangers of driving while excessively drowsy. 4. Weight management. [facility] Not available 03/04/2023 01:52:14 Plan of Treatment Reminders Order Date Submit Date Provider Last Modified By Organization Details Last Modified Time Details Appointments None recorded. Lab None recorded. Referral None recorded. Procedures None recorded. Surgeries None recorded. Imaging polysomnogr am, split night - Pt with prior diagnosed CARMEN (2019), started APAP, stopped and returned device with weight loss, now reevaluatio n in context of possible revision of bariatric gastric sleeve surgery. Please schedule in-lab PSG, possible split night polysomnogr aphy ( if AHI > 15/h). Please let me know when scheduled and when ready for interpretat ion. Ordering provider Precious Gonzalez MD will interpret the study. (Cell: ). Summary: 47 yo WW with hx of mild, largely REM - associated CARMEN Dx 2019 (then 254 lb, now 240 lb), morbid obesity, s/p bariatric gastric sleeve surgery 2019, now presenting for reevaluatio n of possible sleep disordered breathing prior to revision of bariatric surgery. Other PMHx includes mental health challenges with h/o traumatic experiences , depression, anxiety, panic, PTSD, nightmares, borderline personality disorder, nasal allergies, asthma (both worse spring/ er), improved after quitting smoking several times - most recently ~ 1 year ago. She had used CPAP for a few months, then stopped after bariatric surgery (01/31/19) and subsequent weight loss. Had initially larger leak - improved after switch to different mask (intranasal pillows to nasal mask per her report). Prior traumatic experiences made it harder to tolerate PAP therapy. Edentulous. Additional data see encounter note. Contact: Mobile phone 2022 023 [email or web address] [facility], [address], [place], [address], 16:20:19 Medication Orders None recorded. Patient TargetsNo targets recorded. Patient Instructions Encounter Date Encounter Id Patient Instructions Last Modified By Organization Details Last Modified Time 09/28/2022 [id number] insomnia: care instructions [email or web address] Not available 10/15/2022 18:37:42 learning about C PAP for sleep apnea cdahm Not available 10/15/2022 13:55:54 Patient was seen for >60 minute visit, >= 50% of time was spent counseling and coordinating care. Discussed pathophysiology of sleep disordered breathing, possible consequences in context of comorbid conditions and family history, diagnostic tests and possible treatment options for sleep disordered breathing such as positive airway pressure therapy, dental appliances for mandibular advancement, surgical options, positional therapy and weight management. Discussed lifestyle modifications such as healthy diet, exercise, stress management and relaxation. Reviewed briefly overnight in-lab polysomnography and/or home sleep testing and answered questions. Clarified what is needed with bariatric surgery coordinator and insurance. cd[facility] Not available 10/15/2022 18:37:15 10/26/2022 [id number] learning about C PAP for sleep apnea cdahm Not available 12/27/2022 05:48:17 Patient was seen for 35 minute visit, >= 50% of time was spent counseling and coordinating care. F/u after sleep study to discuss and decide about therapy cdahm Not available 10/26/2022 18:54:33 01/11/2023 [id number] learning about C PAP for sleep apnea cdahm Not available 03/04/2023 01:49:42 Patient was seen for 30 minute telehealth visit, >= 50% of time was spent counseling and coordinating care, discussion of sleep study and her weight loss progress. F/u 03/01/23 - hopefully after new set[facility]. [facility] 03/04/2023 01:44:46 03/01/2023 [id number] Patient was seen for 10 minute telehealth visit with synchronous, 2 way connection to discuss possible options for therapy of CARMEN and perioperative management. [facility] Not available 03/04/2023 02:41:29 Reason for Referral None Reported. Results Created Date Observation Date Name Description Value Unit Range Abnormal Flag Note LastModifiedBy Organization Detail LastModifiedTime 01/12/20 23 11/12/2022 polys omnog eliza, split night No observ ation record ed. [facility] [address], [place], [address], 01/11/2023 09:01:08 01/12/20 23 11/12/2022 polys omnog eliza, split night No observ ation record ed. [facility] [address], [place], [address], 01/11/2023 08:58:56 01/12/20 23 11/12/2022 polys omnog eliza, split night No observ ation record ed. [facility] [address], [place], [address], 01/11/2023 09:01:51 01/12/20 23 11/12/2022 polys omnog eliza, split night No observ ation record ed. [facility] [employer] [address], [place], [address], 03/29/2023 23:04:19 Result Notes None recorded. Problems Name Problem SNOMED Code Status Onset Date Resolution Date Notes Provider Name and Address Organization Details Recorded Time Obstructive sleep apnea of adult 5121712419175 Active 2022 Malia Gonzalez MD [address], [place], [address], [facility] [place] [employer] 3 05:48:37 Morbid obesity 494975326 Active 2022 Malia Gonzalez MD [address], [place], [address], [facility] [employer] [place] [employer] 3 05:48:41 Insomnia 885433898 Active 2022 Malia Gonzalez MD [address] [place] [address]. [address], [place], [address], [facility] [employer] [place] [employer] 3 05:48:45 Mixed anxiety and depressive disorder 180499769 Active 2022 Malia Gonzalez MD [address] [place] [address]. [address], [place], [address], [facility] [employer] [place] [employer] 3 05:48:47 Seasonal allergic rhinitis 551122118 Active 2022 Malia Gonzalez MD [address], [place], [address], [facility] [employer] 3 05:48:49 Asthma 708009023 Active 2022 Malia Gonzalez MD [address] [place] [address]. [address], [place], [address], [facility] [employer] [place] [employer] 3 05:48:51 Notes:CARMEN, obesity, insomnia , nasal allergies, asthma, depression/anxiety/PTSD/nightmares Problem Notes None recorded. Procedures Surgical History Date Name Laterality Status Provider Name and Address Organization Details Recorded Time 06/18/19 22 repair of musculotendinous cuff of [facility] 09/28/2022 12:52:58 02/01/20 19 bariatric operative procedure completed Malia Gonzalez MD [address], [place], [address], [facility] [employer] [place] [employer] 10/14/2022 18:19:18 Hysterectomy completed Malia Gonzalez MD [address], [place], [address], [facility] [employer] 10/15/2022 13:40:46 Imaging Results None recorded. Procedure Notes None recorded. Medical Equipment None Reported. Allergies Allergen ID Allergen Name Allergen Category Reaction Reaction Severity Criticality Documentation Date Start Date Code Code System Note Provider Name and Address Organization Details Recorded Time 2089 Ceftin medicatio n Not available Not available Not available 09/28/2022 92811 6 RxNorm Tamy moss, [facility] [employer] 3 12:42:45 2090 Substance with sulfonami de structure and antibacte rial mechanism of action (substanc e) medicatio n Not available Not available Not available 09/28/2022 81669 8003 SNOMED Tamy moss, [facility] [employer] 3 12:43:12 2091 Cortizone medicatio n Not available Not available Not available 09/28/2022 04733 40 RxNorm Tamy moss, [facility] [employer] 3 12:43:58 2092 clindamyc in Not available Not available Not available Not available 09/28/2022 2582 RxNorm Tamy moss, [facility] [employer] 3 12:45:23 2109 droperido l medicatio n Not available Not available Not available 10/14/2022 3648 RxNorm Malia Gonzalez MD [address], [place], [address], [facility] [employer] 3 18:36:24 2110 topiramat e medicatio n Not available Not available Not available 10/14/2022 85533 RxNomynor Gonzalez MD [address], [place], [address], [facility] [employer] 3 18:37:19 2111 Toradol medicatio n Not available Not available Not available 10/14/2022 41262 RxNorm anxie ty Malia Gonzalez MD [address], [place], [address], [facility] [employer] 3 18:38:30 2112 tramadol medicatio n Not available Not available Not available 10/14/2022 81196 RxNorm anxie ty Malia Gonzalez MD [address], [place], [address], [facility] [employer] 3 18:38:37 Medications Name Sig Start Date Stop Date Status Note LastModified by Organization Details LastModified Time gabapentin 600 mg tablet TAKE 1 TABLET BY MOUTH THREE TIMES DAILY active Not Available Not Available No t Available phenazopyr idine 200 mg tablet TAKE 1 TABLET BY MOUTH THREE TIMES DAILY FOR 2 DAYS. MAY CAUSE TEMPORAR Y DISCOLOR ATION OF URINE AND PERMANEN T DISCOLOR ATION OF. CONTACT LENSES active Not Available Not Available No t Available clonazepam 0.5 mg tablet TAKE 1 TABLET BY MOUTH ONCE DAILY NEEDED active Not Available Not Available No t Available hydroxyzin e pamoate 50 mg capsule TAKE 1 CAPSULE BY MOUTH THREE TIMES DAILY NEEDED 03/01 completed Not Available Not Available Not Available hydroxyzin e HCl 50 mg tablet TAKE 1 TO 2 TABLETS BY MOUTH ONCE DAILY NEEDED active Not Available Not Available No t Available lamotrigin e 25 mg tablet TAKE 1 TABLET BY MOUTH ONCE DAILY FOR 7 DAYS THEN 2 ONCE DAILY CONTINUE TO TITRATE WEEKLY BY 25MG TILL REACHING 200MG/DA Y 03/01 completed Not Available Not Available Not Available gabapentin 800 mg tablet TAKE 1 TABLET BY MOUTH THREE TIMES DAILY START ON 04/19/20 22 10/14 completed pt taking 600 mg tid Not Available Not Available Not Available buspirone 30 mg tablet TAKE 1 TABLET BY MOUTH TWICE DAILY START ON 04/19/20 22 10/14 completed pt taking 15 mg 2x/d Not Available Not Available Not Available propranolo l ER 80 mg capsule,24 hr,extende d release TAKE 1 CAPSULE BY MOUTH AT BEDTIME 03/01 completed Not Available Not Available Not Available omeprazole 20 mg capsule,de layed release TAKE 1 CAPSULE BY MOUTH ONCE DAILY 30 MINUTES BEFORE MORNING MEAL 09/28 completed Not Available Not Available Not Available ergocalcif geeta (vitamin D2) 1,250 mcg (50,000 unit) capsule TAKE 1 CAPSULE BY MOUTH TWICE A WEEK FOR 8 WEEKS active Not Available Not Available No t Available diazepam 10 mg tablet TAKE 1 TABLET BY MOUTH ONE HOUR PRIOR TO PROCEDUR E, MAY REPEAT IF NEEDED 09/28 completed Not Available Not Available Not Available propranolo l 20 mg tablet TAKE 1 TABLET BY MOUTH TWICE DAILY active Not Available Not Available No t Available ondansetro n 4 mg disintegra ting tablet DISSOLVE 1 TABLET IN MOUTH EVERY 8 HOURS NEEDED FOR NAUSEA AND FOR VOMITING active Not Available Not Available No t Available amitriptyl ine 100 mg tablet TAKE 1 TABLET BY MOUTH AT BEDTIME active Not Available Not Available No t Available Ventolin HFA 90 mcg/actuat ion aerosol inhaler INHALE 2 PUFFS BY MOUTH EVERY 4 HOURS DIRECTED NEEDED active Not Available Not Available No t Available buspirone 15 mg tablet TAKE 1 TABLET BY MOUTH TWICE DAILY active Not Available Not Available No t Available escitalopr am 20 mg tablet TAKE 1 TABLET BY MOUTH ONCE DAILY IN THE MORNING active Not Available Not Available No t Available nitrofuran toin monohydrat e/macrocry stals 100 mg capsule TAKE 1 CAPSULE BY MOUTH TWICE DAILY FOR 7 DAYS FOR INFECTIO N 09/28 completed Not Available Not Available Not Available vareniclin e tartrate 1 mg tablet TAKE 1 TABLET BY MOUTH TWICE DAILY active Not Available Not Available No t Available vareniclin e tartrate 0.5 mg tablet TAKE 1 TABLET BY MOUTH ONCE DAILY active Not Available Not Available No t Available Wegovy 2.4 mg/0.75 mL subcutaneo us pen injector INJECT 0.75 ML (2.4 MG) UNDER THE SKIN EVERY 7 DAYS. active Not Available Not Available No t Available Wegovy 1.7 mg/0.75 mL subcutaneo us pen injector INJECT 0.75 ML (1.7MG) UNDER THE SKIN EVERY 7 DAYS 03/01 completed Not Available Not Available Not Available Wegovy 1 mg/0.5 mL subcutaneo us pen injector INJECT 0.5ML (1MG) UNDER THE SKIN EVERY 7 DAYS 03/01 completed Not Available Not Available Not Available Wegovy 0.25 mg/0.5 mL subcutaneo us pen injector INJECT 0.5 ML (0.25 MG) UNDER THE SKIN EVERY 7 DAYS. 03/01 completed Not Available Not Available Not Available Wegovy 0.5 mg/0.5 mL subcutaneo us pen injector INJECT 0.5 ML UNDER THE SKIN EVERY 7 DAYS 03/01 completed Not Available Not Available Not Available Vitals Date Recorded Body mass index (BMI) Body weight Provider Name and Address Organization Details Last Updated DateTime 09/28/2022 46.9 kg/m2 920300.17 g Malia Gonzalez MD [address], [place], [address], [facility] [employer] 09/28/2022 14:55:46 Date Recorded Body height Heart rate Oxygen saturation Oxygen saturation in Arterial blood by Pulse oximetry Systolic And Diastolic Provider Name and Address Organization Details Last Updated DateTime 3 152.4 cm 71 /min 97 % 97 % 137/93 mm[Hg] [facility] 3 12:40:53 Date Recorded Body height Provider Name an d Address Organization Details Last Updated DateTime 10/26/2022 152.4 cm Tamy Mireles [facility] [facility], [employer] DB 10/26/2022 10:40:22 Date Recorded Body height Provider Name an d Address Organization Details Last Updated DateTime 01/11/2023 152.4 cm [facility]my [facility] [employer] 01/11/2023 10:31:19 Date Recorded Body height Provider Name an d Address Organization Details Last Updated DateTime 03/01/2023 152.4 cm [facility] [employer] 03/01/2023 11:41:54 Social History Question Answer Notes LastModified by Organizat ion Details LastModified Time Tobacco Smoking Status Former Smoker Malia Gonzalez MD [address], [place], [address], [facility] [employer] 10/14/2022 18:07:18 Are You Blind Or Do You Have Difficulty Seeing? No Information not available 10/14/2022 Have You Been To An Area Known To Be High Risk For COVID-19? No Information not available 10/14/2022 Are You Deaf Or Do You Have Serious Difficulty Hearing? No Information not available 10/14/2022 What Is Your Relationship Status? Information not available 10/14/2022 Have You Recently Traveled Abroad? No Information not available 10/14/2022 Sex: Female Functional Status Question Answer Note LastModified by Organizat ion Details LastModified Time Do you use any illicit or recreational drugs? No In past, meth, others. Information not available 10/14/2022 What is your level of alcohol consumption? Sober for 6 years Information not available 10/14/2022 Are you currently employed? 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 Yes with help from family Information not available 10/14/2022 What is your exercise level? With bariatric program she is increasing walking on treadmill - now up to 45 min/d, yoga in evening 13 min. Information not available 10/14/2022 Mental Status Question Answer Note LastModified by Organizat ion Details LastModified Time Do you feel stressed (tense, restless, nervous, or anxious, or unable to sleep at night)? Intermittently anxious/tense - meds. Relaxes with crafting - make somthing beautiful every day. Daily treadmill with weight loss program. Information not available 10/14/2022 Family History Relationship Description Onset Age of this Age Resolved Age Notes LastModified by Organization Details LastModified Time Mother Heart disease 50 [place], pacer/ defibr illato r, addict ion cdahm Not available 10/14/2022 17:51:51 Father Cerebrovascu lar accident 52 cdahm Not available 17:52:16 Notes:Sisters passed 013, & 11/29/2016, jemima 05/31/2018 (overdoses) and other family members from drug related issues. M-Grandmother passed 2019, M-Grandfather 1990, Pat. Grandmother passed - unsure why, Pat GF alive. Medical History Condition Response Muscle, Joint, or Bone Problems Y Obesity Y Mental Disorder Y Allergies/Hayfever Y Asthma Y Sleep Apnea Y Gynecological HistoryNo gynecological history recorded. Obstetrics History GPAL:G 0 P 0 0 0 0 Past Encounters Encounter ID Performer Location Encounter Start Date Encounter Closed Date Diagnosis/Indication Diagnosis SNOMED-CT Code Diagnosis ICD10 Code Diagnosis IMO Codes Diagnosis Note [id number] Malia Gonzalez MD MAIN OFFICE [address] [facility] [place] [id number] 09/28/2022 12:14:51 10/15/2022 19:18:30 Obstructive sleep apnea of adult 1973234367 103 G47.33 Largely REM related mild CARMEN with clusters of resp. events with significan t desaturati ons with minimum saturation 78% in/near REM in 2018 during evaluation for bariatric surgery. Had used Airsense 10 Autoset, intranasal pillows, per her report switched from intranasal to nasal cushion (Airfit P 30i vs Airfit N 30i?) with better fit. Had stopped PAP therapy after bariatric surgery and further weight loss and returned device per her report. Needs now reevaluati on of sleep disordered breathing prior to possible revision of sleeve bariatric surgery. Current weight is 240 lb vs 258 lb at last PSG 11/08/2018. Given snoring and intermitte nt awakenings , unrefreshi ng sleep, nocturia x1, she likely has again CARMEN, is at risk for hypoxemia/ hypoventil ation, and may benefit from treatment. Will need careful mask management as sensitive to masks. Per her report nasal mask seemed to work better than intranaasa l pillows. May need chinstrap. If AHI >15/h would split night to perform PAP titration with focus on excellent mask fit and resolution of respirator y events especially in REM and/or supine position and assist her in finding a well fitting mask.We will see her back in clinic to discuss results and decide on further management . May have to reschedule current f/u depending on PSG timing. Recheck on elevated BP reading in clinic/via PCP. Seasonal a llergic rhinitis 016368583 J30.2 Intermitte nt symptoms, OTC meds. Asthma 584489112 J45.90 9 Intermitte nt symptoms - much improved per her report after quitting smoking. Morbid obesity 504177913 E66.01 F/u with bariatric surgery team. Currently trying to eat healthy, daily exercise (treadmill , bedtime yoga). Mixed anxi ety and depressive disorder 804958358 F41.8 F/u with mental health team. Insomnia 886425649 G47.0 1 Lately with current medication s able to fall asleep on wedge pillow in ~ 15 - 20 min, wakes 1-2x/night , with unrefreshi ng sleep and daytime fatigue. ESS not reflecting much sleepiness (09/10). Insomnia likely multifacto rial given nighttime awakenings , nocturia, depression /anxiety/P TSD, nightmares , underlying currently untreated CARMEN.Once PSG is done we will discuss findings, treat CARMEN/sleep disordered breathing if she still has this, then reevaluate in collaborat ion with mental health team if she may benefit also from CBT-I. Given multiple medication s and obesity she is at risk for possible suppressio n of respirator y drive and hypoxemia/ hypoventil ation. [id number] Malia Gonzalez MD MAIN OFFICE [address] [facility] [place] [address] 10/26/2022 10:21:59 12/27/2022 05:53:14 Obstructive sleep apnea of adult 1894460473 103 G47.33 Largely REM related mild CARMEN with clusters of resp. events with significan t desaturati ons with minimum saturation 78% in/near REM in 2019 during evaluation for bariatric surgery. Had used Airsense 10 Autoset, intranasal pillows, per her report switched from intranasal to nasal cushion (Airfit P 30i vs Airfit N 30i?) with better fit. Had stopped PAP therapy after bariatric surgery and further weight loss and returned device per her report. Needs now reevaluati on of sleep disordered breathing prior to possible revision of sleeve bariatric surgery. Current weight is 240 lb vs 258 lb at last PSG 11/08/2018. Given snoring and intermitte nt awakenings , unrefreshi ng sleep, nocturia x1, she likely has again CARMEN, is at risk for hypoxemia/ hypoventil ation, and may benefit from treatment. Will need careful mask management as sensitive to masks. Per her report nasal mask seemed to work better than intranasal pillows. May need chinstrap. If AHI >15/h would split night to perform PAP titration with focus on excellent mask fit and resolution of respirator y events especially in REM and/or supine position and assist her in finding a well fitting mask.We will see her back in clinic to discuss results and decide on further management . May have to reschedule current f/u depending on PSG timing.Rec heck on elevated BP reading in clinic/via PCP.10/26/22 : Upset after told not a good candidate for planned redo surgery - referred to Dr. Geo Miranda for duodenal switch surgery. Explained that untreated sleep apnea/shal low breathing chrissy. in REM may increase maximino/posto perative risk and may make it harder to lose weight. Feels often unrefreshe d. Current weight 236 lb. Would recommend to go ahead with sleep study, possible need for treatment. She agrees and will schedule PSG. Seasonal a llergic rhinitis 037076158 J30.2 Intermitte nt symptoms, OTC meds. Asthma 863883110 J45.90 9 Intermitte nt symptoms - much improved per her report after quitting smoking. Morbid obesity 516886560 E66.01 F/u with bariatric surgery team. Currently trying to eat healthy, daily exercise (treadmill , bedtime yoga).: Referral to different bariatric surgery program. Will check. Mixed anxi ety and depressive disorder 386352254 F41.8 F/u with mental health team. Insomnia 851077943 G47.0 1 Lately with current medication s able to fall asleep on wedge pillow in ~ 15 - 20 min, wakes 1-2x/night , with unrefreshi ng sleep and daytime fatigue. ESS not reflecting much sleepiness (09/10). Insomnia likely multifacto rial given nighttime awakenings , nocturia, depression /anxiety/P TSD, nightmares , underlying currently untreated CARMEN.Once PSG is done we will discuss findings, treat CARMEN/sleep disordered breathing if she still has this, then reevaluate in collaborat ion with mental health team if she may benefit also from CBT-I. Given multiple medication s and obesity she is at risk for possible suppressio n of respirator y drive and hypoxemia/ hypoventil ation. [id number] Malia Gonzalez MD MAIN OFFICE [address] [place] [id number] 01/11/2023 10:30:14 03/04/2023 01:51:02 Obstructive sleep apnea of adult 0899067020 103 G47.33 Largely REM related mild CARMEN with clusters of resp. events with significan t desaturati ons with minimum saturation 78% in/near REM in 2019 during evaluation for bariatric surgery. Had used Airsense 10 Autoset, intranasal pillows, per her report switched from intranasal to nasal cushion (Airfit P 30i vs Airfit N 30i?) with better fit. Had stopped PAP therapy after bariatric surgery and further weight loss and returned device per her report. Needs now reevaluati on of sleep disordered breathing prior to possible revision of sleeve bariatric surgery. Current weight is 240 lb vs 258 lb at last PSG 11/08/2018. Given snoring and intermitte nt awakenings , unrefreshi ng sleep, nocturia x1, she likely has again CARMEN, is at risk for hypoxemia/ hypoventil ation, and may benefit from treatment. Will need careful mask management as sensitive to masks. Per her report nasal mask seemed to work better than intranasal pillows. May need chinstrap. If AHI >15/h would split night to perform PAP titration with focus on excellent mask fit and resolution of respirator y events especially in REM and/or supine position and assist her in finding a well fitting mask.We will see her back in clinic to discuss results and decide on further management . May have to reschedule current f/u depending on PSG timing.Rec heck on elevated BP reading in clinic/via PCP.10/26/22 : Upset after told not a good candidate for planned redo surgery - referred to Dr. Geo Miranda for duodenal switch surgery. Explained that untreated sleep apnea/shal low breathing chrissy. in REM may increase maximino/posto perative risk and may make it harder to lose weight. Feels often unrefreshe d. Current weight 236 lb. Would recommend to go ahead with sleep study, possible need for treatment. She agrees and will schedule PSG. 3: PSG 11/12/22 shows mild CARMEN on average, severe in REM, min O2 85%, overall similar to findings in 2019. Discussed findings and treatment options. She would be most interested in APAP therapy if required. Remembered [facility] as prior DME. She will check with her insurance if in network and when she could get set-up. [facility] staff suggested that pt will need to check eligibilit y for new device. She will work on that and get back to us. Would suggest to use RM Airsense 11 Autoset with 5 - 15 cm, EPR per pt preference , heated humidity/t ubing, mask of choice - preferably nasal or nasal pillow such as Airfit N or P 30i. Chinstrap prn mouth leak. Morbid obesity 509242168 E66.01 F/u with bariatric surgery team. Currently trying to eat healthy, daily exercise (treadmill , bedtime yoga).: Referral to different bariatric surgery program. Will check.01/11: Working on weight loss with [employer] , now at 225 lb - [facility]. Insomnia 786411306 G47.0 1 Lately with current medication s able to fall asleep on wedge pillow in ~ 15 - 20 min, wakes 1-2x/night , with unrefreshi ng sleep and daytime fatigue. ESS not reflecting much sleepiness (09/10). Insomnia likely multifacto rial given nighttime awakenings , nocturia, depression /anxiety/P TSD, nightmares , underlying currently untreated CARMEN.Once PSG is done we will discuss findings, treat CARMEN/sleep disordered breathing if she still has this, then reevaluate in collaborat ion with mental health team if she may benefit also from CBT-I. Given multiple medication s and obesity she is at risk for possible suppressio n of respirator y drive and hypoxemia/ hypoventil ation.01/11: Insomnia symptoms are likely related to CARMEN chrissy. occurring in REM sleep with awakenings . Mixed anxi ety and depressive disorder 820679858 F41.8 F/u with mental health team. Seasonal a llergic rhinitis 771389352 J30.2 Intermitte nt symptoms, OTC meds. Asthma 599701312 J45.90 9 Intermitte nt symptoms - much improved per her report after quitting smoking. [id number] Malia Gonzalez MD MAIN OFFICE [address] [facility] [place] [id number] 03/01/2023 11:40:08 03/04/2023 02:50:20 Obstructive sleep apnea of adult 4385054571 103 G47.33 Largely REM related mild CARMEN with clusters of resp. events with significan t desaturati ons with minimum saturation 78% in/near REM in 2019 during evaluation for bariatric surgery. Had used Airsense 10 Autoset, intranasal pillows, per her report switched from intranasal to nasal cushion (Airfit P 30i vs Airfit N 30i?) with better fit. Had stopped PAP therapy after bariatric surgery and further weight loss and returned device per her report. Needs now reevaluati on of sleep disordered breathing prior to possible revision of sleeve bariatric surgery. Current weight is 240 lb vs 258 lb at last PSG 11/08/2018. Given snoring and intermitte nt awakenings , unrefreshi ng sleep, nocturia x1, she likely has again CARMEN, is at risk for hypoxemia/ hypoventil ation, and may benefit from treatment. Will need careful mask management as sensitive to masks. Per her report nasal mask seemed to work better than intranasal pillows. May need chinstrap. If AHI >15/h would split night to perform PAP titration with focus on excellent mask fit and resolution of respirator y events especially in REM and/or supine position and assist her in finding a well fitting mask.We will see her back in clinic to discuss results and decide on further management . May have to reschedule current f/u depending on PSG timing.Rec heck on elevated BP reading in clinic/via PCP.10/26/22 : Upset after told not a good candidate for planned redo surgery - referred to Dr. Geo Miranda for duodenal switch surgery. Explained that untreated sleep apnea/shal low breathing chrissy. in REM may increase maximino/posto perative risk and may make it harder to lose weight. Feels often unrefreshe d. Current weight 236 lb. Would recommend to go ahead with sleep study, possible need for treatment. She agrees and will schedule PSG. 3: PSG 11/12/22 shows mild CARMEN on average, severe in REM, min O2 85%, overall similar to findings in 2019. Discussed findings and treatment options. She would be most interested in APAP therapy if required. Remembered [facility] as prior DME. She will check with her insurance if in network and when she could get set-up. [facility] staff suggested that pt will need to check eligibilit y for new device. She will work on that and get back to us. Would suggest to use RM Airsense 11 Autoset with 5 - 15 cm, EPR per pt preference , heated humidity/t ubing, mask of choice - preferably nasal or nasal pillow such as Airfit N or P 30i. Chinstrap prn mouth leak.03/01: Pt states that she talked to insurance and was told that she is eligible only after 5 years after last set up (~11/218), so ~ summer 2023. She continues to lose weight with [employer]. She hung up when I suggested to continue weight loss, perhaps postpone surgery until eligible for PAP therapy or perhaps retest HST as she may see further improvemen t in REM associated CARMEN. She can continue weight loss, positional therapy, elevation of HOB for now. When I called her back after dietitian visit to find a solution together she hung up again. Morbid obesity 512327100 E66.01 F/u with bariatric surgery team. Currently trying to eat healthy, daily exercise (treadmill , bedtime yoga).: Referral to different bariatric surgery program. Will check.01/11: Working on weight loss with [employer], now at 225 lb - congrats.1 : Continues to lose weight ([employer], merry[employer]) , now at 220 lb. Insomnia 988340947 G47.0 1 Lately with current medication s able to fall asleep on wedge pillow in ~ 15 - 20 min, wakes 1-2x/night , with unrefreshi ng sleep and daytime fatigue. ESS not reflecting much sleepiness (09/10). Insomnia likely multifacto rial given nighttime awakenings , nocturia, depression /anxiety/P TSD, nightmares , underlying currently untreated CARMEN.Once PSG is done we will discuss findings, treat CARMEN/sleep disordered breathing if she still has this, then reevaluate in collaborat ion with mental health team if she may benefit also from CBT-I. Given multiple medication s and obesity she is at risk for possible suppressio n of respirator y drive and hypoxemia/ hypoventil ation.01/11, 03/01/23: Insomnia symptoms are likely related to CARMEN chrissy. occurring in REM sleep with awakenings . Mixed anxi ety and depressive disorder 016251326 F41.8 F/u with mental health team. Seasonal a llergic rhinitis 885851132 J30.2 Intermitte nt symptoms, OTC meds. Asthma 394140114 J45.90 9 Intermitte nt symptoms - much improved per her report after quitting smoking. Health Concerns Section Related Observation LastModified by Organization Detai ls LastModified Time None Recorded Concern Status LastModified by Organization Details LastModified Time None Recorded Advance Directives Directive None Recorded Payers Insurance Date Sequence Insurance Name Policy Number Policy Uribe Covered Member ID Uribe Member ID Guarantor Name 03/04/2023 1 PADMAJA (O) [id number] 1 Yomaira Alvarenga [id number] Yomaira Alvarenga Notes Date Note Type Note Provider Name and Address Organization Details Recorded Time 09/28/2022 text/html ROS as noted in the HPI Ms Pk Alvarenga is a pleasant 47 yo woman with obesity, s/p bariatric sleeve surgery 01/31/2019, She had lost about 30 - 40 lb from a maximum of 280 lb to ~ 258.4 lb at time of PSG 2019 in preparation to bariatric surgery, and afterwards down to ~198 lb. She regained weight to now 243 lb after several surgeries on knees, wrists and shoulder. She is currently undergoing evaluation for revision of bariatric gastric sleeve surgery via [facility] in collaboration with [facility]. She has started using Wegovy injections but does not want to stay on this. In this context she presents to the sleep clinic for re-evaluation of obstructive sleep apnea diagnosed prior to last bariatric surgery in 2019. Her PCP is Rhonda Mathew [employer]; for mental health care she sees Jennifer Fajardo MD, psychiatrist at [facility]. We requested medical records:Sleep Study 11/08/2018 [facility] ht 61 wt 258.4 lb.Low sleep efficiency 57% despite meds. Mild snoring, REM-predominant CARMEN with AHI 13/h, RDI 15/h, mean O2 sat 92%, min. O2 sat 78%, PLMI 0/h.Initial consult note 11/21/2018 with discussion of PSG results.Order for APAP 5 - 15 cm to [facility].Download APAP RM Airsense 10 Autoset She reports that she started APAP and used it for a while. With weight loss after surgery she then stopped using APAP and does not have the device anymore. She thinks that she did not like the nasal pillows mask (discomfort from straps on sides of head). She remembers being bothered by leak vs taking mask off in her sleep. Remembers discomfort in her nose. She was bothered by the noise and was waking up more with than without CPAP likely related to leak or getting triggered. She tried a different mask (nasal?) which felt a bit gentler than direct airjet from nasal pillows. Occasionally had some burping (leak, pressures?). Liked heated humidity.We discussed that with careful leak management, better mask fit and perhaps additional desensitization she might find PAP therapy easier to tolerate in case she has again sleep apnea on testing.She does not have any teeth since probably around 2009. Has dentures but poor fit. Since she does not have her APAP anymore we could not get a download for further evaluation. A download from [facility]/Miguelina from 11/30/18 to 02/27/19 showed regular > 4h usage until early January 2019, with initial high, then improved leak and low AHI. Currently she lives in sober living apt, from , good contact with 2 daughters. She lost multiple family members to drug addiction. She is sober for about 6 years. She lives with her cat Zorro and bearded dragon Lizabeth. Comfortable environment, reads andrews in bed.Sleep schedule with BT ~ 10 - 11 pm, RT ~ 8 - 10 am. Feels on/off refreshed. She takes multiple medications and is able to fall asleep in 15 to 20 min. She sleeps on wedge pillow at partial incline. She wakes about 1-2x , nocturia ~1x, usually able to go back to sleep in a few minutes. She needs about 6 - 8 h to feel ok. She does not nap usually.No RLS.Has been dx with PTSD and has nightmares intermittently for many years.Not aware of acting out dreams or injury. CARMEN: She started snoring in childhood, worse with weight gain. She usually snores on her back, not on sides/stomach per her report.She is not aware of gasping/choking - has anxiety about swallowing her tongue and may have to do slow breathing and counting relaxation. She used to have more breathing pauses.No morning headaches, she has on/off dry mouth in mornings, sometimes nightsweats / hot flashes with nightmares especially. Going through menopause.Her Dad snored, not dx with CARMEN.She has asthma and uses inhalers, some seasonal allergies worse in spring, winter. Asthma is much better since quitting smoking per her report.She lost her teeth about 10 years ago - finds it hard to use dentures and hard to speak with them.Rarely has GERD.Feels on/off depressed and is working with mental health team, takes multiple meds (see list) that are sedating. ESS: 6-4-9-0-1-0-0-0 = 09/10 (not driving herself) She does not feel much sleepiness, rather is fatigued at times, not aware of cataplexy, sleep paralysis, hypnagogic/hypnopompi c hallucinations. Malia Gonzalez MD [address], [place], [address], [facility] [employer] DB 10/15/2022 19:26:14 10/26/2022 text/html ROS as noted in the HPI Ms Yomaira Alvarenga/Ana returns for f/u for reevaluation of sleep apnea and agreed to a synchronous, 2 way communication telehealth visit. She had seen the surgical team for redo bariatric surgery yesterday and was very upset when told that the surgeon would not want to do the surgery. She wasn't sure why not told earlier after endoscopy. The surgeon suggested to do another surgery that a colleague regularly does as the one he intended would not lead to enough weight loss. Ana was unsure about exact procedures. She also told the surgery team that she did not want to do the sleep study now but afterwards on her own times and was wondering if that contributed.She continued her meds as before. Has lost more weight - down to 236 lb yesterday (while on weekly Wegovy injections).She had to call her psychiatrist yesterday as she was so upset who helped her process. [facility] is [facility] for [facility] for duodenal switch surgery. Congratulated her on further weight loss - now 236 lb. Discussed that sleep study is important to check if she still has CARMEN, which happened during PSG before largely in REM and may also be in part from taking only shallow breaths. Explained that this may lead to trouble breathing after surgery and increase possible risks in maximino/postop period. In addition it may be easier to loose weight if sleep apnea is treated. So even if she is now exploring a new team for bariatric surgery she may be able to lose more weight leading up to the surgery. Sleep schedule: BT 10:30 - 11 pm, RT 9:30, 10 am. Falls asleep in 10 - 15 min - taking meds for mental health to make her fall asleep easier feel calmer.Reads a bit on andrews. Uses glasses.Usually feels poorly refreshed, sometimes ok.Sometimes nightmares - often related to prior trauma. May have morning headaches then.Discussed dream rehearsal therapy - rewriting scenario, add helper, practice - could try.No bedpartner currently - was snoring before.ESS 10/10 (not driving).No RLS.Asthma - doing well since quit smoking. Congrats. Wixela bid, ventolin rescue occasionally.Discusse d that if she would need CPAP again she could try newer masks such as Airfit F 30i which allows for reading with glasses.Discussed again sleep disordered breathing diagnostics, treatment options in context of her symptoms, comorbid conditions. She will think about scheduling sleep study now and get more information on new bariatric surgery team. Malia Gonzalez MD [address], [place], [address], [facility] - [place] [employer] DB 12/27/2022 05:52:30 01/11/2023 text/html ROS as noted in the HPI Ms Yomaira Alvarenga/Ana returns for f/u to discuss results from sleep study done for reevaluation of sleep apnea and agreed to a synchronous, 2 way communication telehealth visit. She was referred from first surgical team to other surgeon Geo Miranda MD for duodenal switch surgery around 10/25/22. A new director of healthcare systems is Edith (phone [phone]). She is continuing weight loss with help of Wegovy injections and is currently at 225 lb.Congrats!Asthma appears well controlled wit Wisela BID, albuteral prn.No RLS.F/u with psychiatry for mental health and management of medications. In interim she had in-lab sleep study at [facility] on 11/12/22: Wt was around 236 lb (10/26/22).She states that she slept fine and took her usual medications (list). She did not perceive any RLS per her report and felt comfortable with bed.We discussed that similar to prior sleep study from 2019 she had again REM associated sleep apnea with average AHI 6.4/h, RDI 6.8/h, REM AHI 38/h, min O2 85% suggestive of mild sleep apnea on average but severe in REM. Likely due to medications REM occurred with delay and was seen mostly in right lateral position with severe fragmentation of REM in supine position. RR was 16 - 20 bpm. Lowest O2 sat. occurred in REM. Pt had PLMS that seemed related to more shallow breaths and sigh breaths possibly with mouth breathing. She describes that her jaw does not feel in the right position without teeth (lost teeth about 20 y ago) intermittently. Discussed MD interpretation, reports and screen shots. Discussed treatment options such as APAP therapy, positional therapy. She would not be a candidate for DA/MA due to edentulous status. We discussed that treatment with APAP therapy would be helpful to prevent perioperative complications from untreated sleep apnea and may be helpful to get more refreshing sleep.She had used in the past [employer] as DME for APAP around bariatric gastric sleeve surgery 01/31/2019. She had RM Airsense 10 Autoset 5 - 15 cm, ~ 11/30/2018 to 02/27/19 with nasal mask (Dreamwear nasal pillow?, allowing reading Andrews with glasses) and after mask change had good usage and mask fit. She will check with insurance and see if [facility] is in network. Otherwise will tell us other DME option. She thought that [employer] [address] in [place] was the office she used before. ( , FAX [phone].) After the visit we could reach [facility] and staff recommended to have her check with her insurance if new set-up was possible. [facility] was originally billed.I called her back and let her know. She will talk to insurance and find out about her options and let us know.She will continue to work on weight loss. She usually sleeps on her sides and sometimes on her back - feels more anxious when on her back. Recommended to her to avoid sleeping on her back and perhaps elevate HOB or use wedge in interim. Malia Gonzalez MD [address], [place], [address], [facility] [place] [employer] DB 03/04/2023 01:49:49 03/01/2023 text/html Ms Yomaira Alvarenga/Ana returns for f/u for CARMEN predominantly occurring in REM in context of evaluation for redo bariatric surgery. She agreed to a synchronous, 2 way communication telehealth visit.We had initially technical issues to connect. Finally [employer]ity telehalth video visit worked. She was referred from first surgical team to other surgeon Geo Miranda MD for duodenal switch surgery around 10/25/22. A new director of healthcare systems is Edith (phone [phone]). She is continuing weight loss with help of Wegovy injections and is currently at 220 lb.Congrats! She had scheduled a visit with the dietitian right after this visit. As discussed in prior visit 01/11/23 she had in-lab sleep study at [facility] on 11/12/22: Wt was around 236 lb (10/26/22).Similar to prior sleep study from 2019 she had again REM associated sleep apnea with average AHI 6.4/h, RDI 6.8/h, REM AHI 38/h, min O2 85% suggestive of mild sleep apnea on average but severe in REM.Treatment options for her are ongoing weight loss, PAP therapy, positional avoidance of supine sleep, elevation of head of bed. DA/MA would not be option due to lack of teeth.At last visit [facility] in [place] seems to have been the DME in 2019. Staff there had then suggested that she would need to check eligibility for new set-up. She was going to talk to insurance about her options and let us know. Today she reports that the insurance is not allowing new machine now. She was told that she would have to wait 5 years to be eligible for new device. Her last set-up was ~ 11/2018, so in summer 2023 she would be eligible again.She has been successful at loosing weight with dietitian guidance per her report.I explained that REM associated sleep apnea may lead to perioperative complications and that PAP therapy would be helpful maximino/postoperatively for airway management. When I mentioned that she could perhaps continue to use Wegovy, work with dietitian for now and lose more weight this way without the risk of surgery, she appeared frustrated, exclaimed I am done with this and hung up. I waited that her visit with the dietitian was done and called back about 1 1/2h later. She picked up the phone. When I explained that I find it frustrating that she hangs up on me when I am trying to find a solution for her she stated that I am not listening and hung up again. She does not appear to want to continue this relationship. She will f/u with her team of providers and f/u with psychiatry for mental health issues. Malia Gonzalez MD [address], [place], [address], [facility] [place] [employer] DB 03/04/2023 02:49:29 OBGyn Episode No OBEpisode recorded.
--- OUTSIDE RECORDS SUMMARY | 2025-02-16 01:29 | XMS_ITS | Clinical Summary ---
Author Organization [facility] Address [address] [place] [address] Care Team Providers Care Churn Driller Name Role Phone Alfacarmen Dominic Mckeon Unavailable [phone] Ryan Mathew CNP Primary Care Provider [phone] Kelly Hoover Pharm D Unavailable Allergies Active Allergy Reactions Criticality Noted Date Comments Cefuroxime Axetil Rash Low 06/06/2011 Cefuroxime Rash 09/06/2005 Clindamycin Nausea Low 09/06/2005 Cortisone Anxiety,Rash High 02/13/2013 Cortisone shots Hydrocortisone Medium 12/12/2018 Droperidol Anxiety High 06/06/2011 Ketorolac Anxiety,Other Medium 09/06/2005 Not a true allergy but need to weigh benefit vs risk. Recommend avoiding NSAIDs if possible. If deemed beneficial needs concurrent PPI and close medical supervision. pt reports tic-like behaviors (JUMPY) Nalbuphine Hcl Rash 09/13/2009 Nsaids (Non-Steroidal Anti-Inflammatory Drug) Nausea Medium 07/25/2005 Not a true allergy but need to weigh benefit vs risk. Recommend avoiding NSAIDs if possible. If deemed beneficial needs concurrent PPI and close medical supervision. Hx of Gastric Bypass Risperidone Anxiety Low 06/06/2011 Risperidone Analogues Unknown,Anxiety 6 pt states does not mix well with other meds Rofecoxib Anxiety,Nausea Medium 09/06/2005 Not a true allergy but need to weigh benefit vs risk. Recommend avoiding NSAIDs if possible. If deemed beneficial needs concurrent PPI and close medical supervision. plus also gets jumpy Quetiapine Anxiety High 06/06/2011 Sulfa (Sulfonamide Antibiotics) Swelling, lips/tongue High 09/06/2005 Pt was told this happened in childhood Topiramate Rash,Hives Medium 02/10/2020 Tramadol Anxiety,Other Medium 09/06/2005 reports tic-like behaviors (JUMPY) Trazodone Anxiety Medium 07/13/2007 Other reaction(s): Hallucinations Medications amitriptyline (ELAVIL) 100 mg oral tablet Take 1 tablet (100 mg) by mouth at bedtime. For sleep Active hydrOXYzine HCl (ATARAX) 50 mg oral tablet Take 1 tablet (50 mg) by mouth three times a day as needed. 2-3 times per day Active melatonin 10 mg oral TbDL Dissolve 10 mg in mouth at bedtime. For sleep Active albuterol HFA (PROVENTIL;VENT DAVONTE HFA) 90 mcg/actuation Inhl inhaler Inhale 1-2 puffs as needed for shortness of breath. 8 Active Acetaminophen 500 mg/15 mL oral Liquid Take 15 mL (500 mg) by mouth every 6 (six) hours as needed (for pain). For pain Active propranoloL (INDERAL) 20 mg oral tablet Take 1 tablet (20 mg) by mouth twice a day. Active gabapentin (NEURONTIN) 600 mg oral tablet Take 1 tablet (600 mg) by mouth three times a day. Active escitalopram oxalate (LEXAPRO) 20 mg oral tablet Take 1 tablet (20 mg) by mouth once daily. Active ondansetron (ZOFRAN) 4 mg oral tablet Take 1 tablet (4 mg) by mouth every 8 (eight) hours as needed. Active Multivitamins with Minerals 9 mg iron-400 mcg oral Tab Take 1 tablet by mouth once daily. Active CALCIUM CITRATE ORAL Take 600 mg by mouth three times a day. Active polyethylene glycol (MIRALAX) 17 gram oral packet Take 17 g by mouth once a day as needed. Active fluticasone 250 mcg-salmeterol 50 mcg (ADVAIR) 250-50 mcg/dose Inhl DsDv diskus inhaler Inhale 1 puff twice a day. Active Active Problems Problem Noted Date Diagnosed Date Status post bariatric surgery 08/19/2022 History of opioid abuse 08/19/2022 History of methamphetamine abuse 08/19/2022 Obesity, Class III, BMI 40-49.9 (morbid obesity) 01/30/2019 Overview (02/08/2024): 02/08/24 Patient followed through [facility] bariatric surgery service. Underwent conversion from a prior sleeve gastrectomy to a duodenal switch in September 2023. Prior to that was on Wegovy for weight loss. Desiring Wegovy today - Would like her to follow-up with the bariatric clinic to discuss this, as I am unsure if this would be warranted disclosed to bariatric surgery. - Slightly she has an appointment in March to follow-up with a provider - Has ongoing visits with a reinforcer currently through their bariatric service Assessment & Plan (02/08/2024 10:10 AM CDT): 02/08/24 Patient followed through [facility] bariatric surgery service. Underwent conversion from a prior sleeve gastrectomy to a duodenal switch in September 2023. Prior to that was on Wegovy for weight loss. Desiring Wegovy today - Would like her to follow-up with the bariatric clinic to discuss this, as I am unsure if this would be warranted disclosed to bariatric surgery. 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 Insomnia, unspecified 11/21/2018 Obstructive sleep apnea (adult) (pediatric) 06/2018 Nocturia 11/21/2018 PTSD (post-traumatic stress disorder) Binge-eating disorder, in full remission, mild Anxiety Morbid obesity Family History Medical History Relation Comments Breast Cancer Paternal Aunt Breast Cancer Paternal Grandmother Relation Status Comments Maternal Aunt Paternal Aunt Paternal Grandmother Social History Tobacco Use Types Packs/Day Years Used Date Smoking Tobacco: Former Cigarettes Q uit: 09/29/2018 Passive Smoke Exposure: Current Smokeless Tobacco: Never Comments:chantix Alcohol Use Standard Drinks/Week Comments Not Currently 0 (1 standard drink = 0.6 oz pur e alcohol) Sober since 2017 Humiliation, Afraid, Rape, and Kick questionnair e Answer Date Recorded Within the last year, have y ou been afraid of your partner or ex-partner? No 10/13/2024 Within the last year, have y ou been humiliated or emotionally abused in other ways by your partner or ex-partner? No Within the last year, have y ou been kicked, hit, slapped, or otherwise physically hurt by your partner or ex-partner? No 10/13/2024 Within the last year, have y ou been raped or forced to have any kind of sexual activity by your partner or ex-partner? No 10/13/2024 PHQ-2 Answer Date Recorded PHQ2 Total 2 02/08/2024 Comments No Sex and Gender Information Value Date Recorded Sex Assigned at Not on file Legal Sex Female 5:34 AM CDT Gender Identity Not on file Sexual Orientation Not on file Last Filed Vital Signs Vital Sign Reading Time Taken Comments Blood Pressure 92/73 10/14/2024 4:30 AM CDT Pulse 85 10/14/2024 4:30 AM CDT Temperature 36.7 C (98.1 F) 10/13/2024 9:27 PM CDT Respiratory Rate 14 10/14/2024 4:30 AM CDT Oxygen Saturation 98% 10/14/2024 4:3 0 AM CDT Inhaled Oxygen Concentration - - Weight 87.5 kg (193 lb) 02/08/2024 9:35 AM CDT Weighed self at home- video visit Height 152.4 cm (5') 02/08/2024 9:35 AM CDT Body Mass Index 37.69 02/08/2024 9:35 AM CDT Plan of Treatment Health Maintenance Due Date Last Done Comments Pap Smear 1976 Lipid Screening 09/14/2011 09/13/2006 Mammogram Screening 11/20/2023 11/19/2022, 9 Anxiety Follow-Up (VALDO-7) 08/07/2024 02/08/2024 Depression Follow-Up (PHQ-9) 08/07/2024 02/08/2024, 01/31/2023 Influenza Vaccine (#1) 2025 4, 03/25/2023, 03/19/2011, Additional history exists Cologuard 10/01/2025 10/01/2022 (Prev iously completed) Adult Tetanus Booster 10/23/2031 10/22/2021 , 03/19/2011, 01/10/2008, Additional history exists RSV Vaccines (1 - 1-dose 75+ series) 2051 Hepatitis C Screening Completed 09/13/2006 Pneumococcal Vaccine Completed 10/22/2021, 03/03/20 COVID-19 Vaccine Completed 02/14/2024, 07/2022, 07/14/2022 Meningococcal B Vaccine Aged Out No l onger eligible based on patient's age to complete this topic Medical Devices Implanted Type Area Family Assistant Device Identifier Shelf Expiration Date Model / Serial / Lot Seamguard Stplr Endo Breanna 60 - [id number] Implanted:Qty : 2 on 01/30/2019 by Esther Solano MD at [facility] Supply N/A: Abdomen [employer] 08/20/2021 [id number] / / [id number] Seamguard Stplr Endo Breanna 60 - [id number] Implanted:Qty : 3 on 01/30/2019 by Esther Solano MD at [facility] Supply N/A: Abdomen [employer] 08/20/2021 [id number] / / [id number] Procedures Procedure Name Priority Date/Time Associated Diagnosis Comments MAMMO DIGITAL SCREENING BI Routine 11/19/2022 3:40 PM CDT Visit for screening mammogram from Last 3 Months or Most Recently Relevant to Health Maintenance Results * MAMMO ([facility]) DIGITAL SCREENING BI (11/19/2022 3:40 PM CDT) Anatomical Region Laterality Modality Breast Bilateral Mammography Impressions 11/19/2022 3:53 PM CDT : NEGATIVE There is no mammographic evidence of malignancy. RECOMMENDATION: - A screening mammogram in 1 year. BI-RADS: Overall: 1 - Negative The patient will be notified of the results. REPORT SIGNED BY Tran Worthy MD Narrative 11/19/2022 3:53 PM CDT EXAM: MAMMO ([facility]) DIGITAL SCREENING BI REASON FOR EXAM: Routine screening mammogram COMPARISON: Compared to: 10/17/2018 MAMMO DIGITAL SCREENING BI TECHNIQUE: Craniocaudal and oblique digital views were obtained. Current study was evaluated with Computer Aided Detection (CAD) system. FINDINGS: The breasts have scattered areas of fibroglandular density. No significant masses, calcifications, or other findings are seen in either breast. There has been no significant interval change. us Rupert Ramirez MD MAMMO ORDERABLE Final Re sult from Last 3 Months or Most Recently Relevant to Health Maintenance [facility] PMAP/MNCARE Advance Directives For more information, please contact: [phone] * Full Code (Latest Code Status on File) Date Activated Date Inactivated Comments 01/30/2019 11:08 AM 01/31/2019 7:05 PM Question Answer Comments How was code status determined? Patient Care Teams Churn Driller Relationship Specialty Start Date End Date Ryan Mtahew CNP [address] [place] [address] PCP - General 09/02/22 Dominic Amato [address] [place] [address] Mental Health Provider 11/07/18 Kelly Hoover, Pharm D [address] [place] [address] Consulting Pharmacist Pharmacy 09/02/22
== END 2025-02-16 02:12 | disposition home or self-care (01) ==
PROVIDERS: Emergency Provider Emergency Medicine
DX: M79.621 Pain in right upper arm (principal); M25.531 Pain in right wrist
CPT/HCPCS: 73030; 73110; 99283; 99285; A9270

== ENCOUNTER 2025-03-11 17:37 | Emergency (ER) | payer MEDICAID, SELFPAY ==
[2025-03-11 17:55] VITALS: BP 152/93; PULSE 85; RESP 16; TEMP 35.9; O2SAT 99; BMI 33.8
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
--- OUTSIDE RECORDS SUMMARY | 2025-03-11 18:30 | XMS_ITS | Clinical Summary ---
Author Organization [facility] Address [address] [place] [address] Care Team Providers Care Project Development Leader Name Role Phone Alfacarmen Dominic Mckeon Unavailable [phone] Ryan Mathew CNP Primary Care Provider [phone] Kelly Hoover Pharm D Unavailable [phone] Allergies Active Allergy Reactions Criticality Noted Date [...] 01/30/2019 Overview (02/08/2024): 02/08/24 Patient followed through [facility] bariatric surgery service. Underwent conversion from a [...] provider - Has ongoing visits with a body component engineer currently through their bariatric service Assessment & Plan (02/08/2024 10:10 AM CDT): 02/08/24 Patient followed through [facility] bariatric surgery service. Underwent conversion from a [...] provider - Has ongoing visits with a body component engineer currently through their bariatric service Morbid obesity [...] this topic Medical Devices Implanted Type Area Battery Engineer Device Identifier Shelf Expiration Date Model / Serial / Lot Seamguard Stplr Endo Breanna 60 - [id number] Implanted:Qty : 2 on 01/30/2019 by Esther Solano MD at [facility] Supply N/A: Abdomen [employer] 08/20/2021 [id number] / / [id number] Seamguard Stplr Endo Breanna 60 - [id number] Implanted:Qty : 3 on 01/30/2019 by Esther Solano MD at [facility] Supply N/A: Abdomen [employer] 08/20/2021 [id number] / / [id number] Procedures Procedure Name Priority Date/Time Associated Diagnosis [...] Narrative 11/19/2022 3:53 PM CDT EXAM: MAMMO ([facility]) DIGITAL SCREENING BI REASON FOR EXAM: Routine [...] Most Recently Relevant to Health Maintenance [facility] PMAP/MNCARE Advance Directives For more information, please contact: [phone] * Full Code (Latest Code Status on File) Date Activated Date Inactivated Comments 01/30/2019 11:08 AM 01/31/2019 7:05 PM Question Answer Comments How was code status determined? Patient Care Teams Project Development Leader Relationship Specialty Start Date End Date Ryan Mathew CNP [address] [place] [address] PCP - General 09/02/22 Dominic Amato [address] [place] [address] Mental Health Provider 11/07/18 Kelly Hoover, Pharm D [address] [place] [address] Consulting Pharmacist Pharmacy 09/02/22
--- OUTSIDE RECORDS SUMMARY | 2025-03-11 18:31 | XMS_ITS | Clinical Summary ---
Author Organization [facility] Address [address] [place] [address] Care Team Providers Care Full Stack Python Developer Name Role Phone Unavailable Primary Care Provider [...] NEEDED Active ergocalciferol (Vitamin D-2) 1.25 MG (75987 UT) capsule TAKE 1 CAPSULE BY MOUTH [...]
--- OUTSIDE RECORDS SUMMARY | 2025-03-11 18:31 | XMS_ITS | Data Portability ---
Author Organization [employer], [employer] Address [address] [place] [address] Care Team Providers Care Cable Tender Name Role Phone RHONDA MATHEW Primary Care Provider MELISSA [facility] OTHER [phone] [facility] OTHER SPECIALISTS IN [facility]AL [facility] Assessment Encounter Date Assessment Date Assessment [...] driving while excessively drowsy. 4. Weight management. [facility] Not available 03/04/2023 01:52:14 Plan of [...] note. Contact: Mobile phone 2022 023 [email or web address] [facility], [address], [place], [address], 16:20:19 Medication Orders None recorded. Patient TargetsNo [...] therapy cdahm Not available 10/26/2022 18:54:33 01/11/2023 [id number] learning about C PAP for sleep apnea cdahm Not available 03/04/2023 01:49:42 Patient was seen for 30 minute telehealth visit, >= 50% of time was spent counseling and coordinating care, discussion of sleep study and her weight loss progress. F/u 03/01/23 - hopefully after new set-up with APAP. [facility] Not [facility] 03/04/2023 01:44:46 03/01/2023 [id number] Patient was seen for 10 minute telehealth visit with synchronous, 2 way connection to discuss possible options for therapy of CARMEN and perioperative management. [facility] Not available 03/04/2023 02:41:29 Reason for Referral None Reported. Results Created Date Observation Date Name Description Value Unit Range Abnormal Flag Note LastModifiedBy Organization Detail LastModifiedTime 01/12/20 23 11/12/2022 polys omnog eliza, split night No observ ation record ed. [facility] [address], [place], [address], 01/11/2023 09:01:08 01/12/20 23 11/12/2022 polys omnog eliza, split night No observ ation record ed. [facility] [address], [place], [address], 01/11/2023 08:58:56 01/12/20 23 11/12/2022 polys omnog eliza, split night No observ ation record ed. [facility] [address], [place], [address], 01/11/2023 09:01:51 01/12/20 23 11/12/2022 polys omnog eliza, split night No observ ation record ed. [facility] [id number], [place], [address], 03/29/2023 23:04:19 Result Notes None recorded. Problems Name Problem SNOMED Code Status Onset Date Resolution Date Notes Provider Name and Address Organization Details Recorded Time Obstructive sleep apnea of adult 1244182840609 Active 2022 Malia Gonzalez MD [address], [place], [address], [facility] [place] [employer] DB 3 05:48:37 Morbid obesity 152054545 Active 2022 Malia Gonzalez MD [address], [place], [address], [facility] Track [place] 3 05:48:41 Insomnia 302964925 Active 2022 Malia Gonzalez MD [address] [place] [address]. [address], [place], [address], [facility] Track [employer] 3 05:48:45 Mixed anxiety and depressive disorder 128629016 Active 2022 Malia Gonzalez MD [address] [place] [address]. [address], [place], [address], [facility] Track [employer] 3 05:48:47 Seasonal allergic rhinitis 794294453 Active 2022 Malia Gonzalez MD [address], [place], [address], [facility] [email or web address]. [employer] 3 05:48:49 Asthma 694239828 Active 2022 Malia Gonzalez MD [address] [place] [address]. [address], [place], [address], [facility] Track [employer] 3 05:48:51 Notes:CARMEN, obesity, insomnia , nasal allergies, asthma, depression/anxiety/PTSD/nightmares Problem Notes None recorded. Procedures Surgical History Date Name Laterality Status Provider Name and Address Organization Details Recorded Time 06/18/19 22 repair of musculotendinous cuff of shoulder completed Tamy Mireles [facility] 09/28/2022 12:52:58 02/01/20 19 bariatric operative procedure completed Malia Gonzalez MD [address], [place], [address], [facility] Track [employer] 10/14/2022 18:19:18 Hysterectomy completed Malia Gonzalez MD [address], [place], [address], [facility] [employer]. 10/15/2022 13:40:46 Imaging Results None recorded. Procedure Notes None recorded. Medical Equipment None Reported. Allergies Allergen ID Allergen Name Allergen Category Reaction Reaction Severity Criticality Documentation Date Start Date Code Code System Note Provider Name and Address Organization Details Recorded Time 2089 Ceftin medicatio n Not available Not available Not available 09/28/2022 89515 6 RxNorm Tamy moss, [facility] [employer] 3 12:42:45 2090 Substance with sulfonami de structure and antibacte rial mechanism of action (substanc e) medicatio n Not available Not available Not available 09/28/2022 97162 8003 SNOMED Tamy moss, [facility] [employer] 3 12:43:12 2091 Cortizone medicatio n Not available Not available Not available 09/28/2022 48761 40 RxNorm Tamy moss, [facility] [employer] 3 12:43:58 2092 clindamyc in Not available Not available Not available Not available 09/28/2022 2582 RxNorm Tamy moss, [facility] [employer], [employer]. 3 12:45:23 2109 droperido l medicatio n Not available Not available Not available 10/14/2022 3648 RxNorm Malia Gonzalez MD [address], [place], [address], [facility] [employer], [employer] 3 18:36:24 2110 topiramat e medicatio n Not available Not available Not available 10/14/2022 69700 RxNomynor Gonzalez MD [address], [place], [address], [facility] [email or web address]. DB 3 18:37:19 2111 Toradol medicatio n Not available Not available Not available 10/14/2022 75808 RxNorm anxie ty Malia Gonzalez MD [address], [place], [address], [facility] [employer] DB 3 18:38:30 2112 tramadol medicatio n Not available Not available Not available 10/14/2022 28229 RxNorm anxie ty Malia Gonzalez MD [address], [place], [address], [facility] [employer] 3 18:38:37 Medications Name Sig [...] Details Last Updated DateTime 09/28/2022 46.9 kg/m2 564245.17 g Malia Gonzalez MD [address], [place], [address], [facility] [employer] 09/28/2022 14:55:46 Date Recorded Body height Heart rate Oxygen saturation Oxygen saturation in Arterial blood by Pulse oximetry Systolic And Diastolic Provider Name and Address Organization Details Last Updated DateTime 3 152.4 cm 71 /min 97 % 97 % 137/93 mm[Hg] Tamybety Mireles [facility] 3 12:40:53 Date Recorded Body height Provider Name an d Address Organization Details Last Updated DateTime 10/26/2022 152.4 cm Tamy Mireles [facility] [employer], [employer] 10/26/2022 10:40:22 Date Recorded Body height Provider Name an d Address Organization Details Last Updated DateTime 01/11/2023 152.4 cm Tamy Mireles [facility], [employer] 01/11/2023 10:31:19 Date Recorded Body height Provider Name an d Address Organization Details Last Updated DateTime 03/01/2023 152.4 cm Tamy Mireles [facility] [employer], [employer] 03/01/2023 11:41:54 Social History Question Answer Notes LastModified by Organizat ion Details LastModified Time Tobacco Smoking Status Former Smoker Malia Gonzalez MD [address], [place], [address], [facility] [place] [employer] 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 M-Grandmother passed 2019, M-Grandfather 1990, Pat. Grandmother passed - unsure why, Pat GF alive. Medical History Condition Response Allergies/Hayfever Y Muscle, Joint, or Bone Problems Y Obesity Y Sleep Apnea Y Mental Disorder Y Asthma Y Gynecological HistoryNo gynecological history recorded. Obstetrics History GPAL:G 0 P 0 0 0 0 Past Encounters Encounter ID Performer Location Encounter Start Date Encounter Closed Date Diagnosis/Indication Diagnosis SNOMED-CT Code Diagnosis ICD10 Code Diagnosis IMO Codes Diagnosis Note [id number] Malia Gonzalez MD MAIN OFFICE [address] [facility] [place] [address] 09/28/2022 12:14:51 10/15/2022 19:18:30 Obstructive sleep apnea of adult 8545294526 103 G47.33 Largely REM related mild CARMEN [...] in clinic/via PCP. Seasonal a llergic rhinitis 522202604 J30.2 Intermitte nt symptoms, OTC meds. Asthma 652812804 J45.90 9 Intermitte nt symptoms - much improved per her report after quitting smoking. Morbid obesity 582222386 E66.01 F/u with bariatric surgery team. Currently trying to eat healthy, daily exercise (treadmill , bedtime yoga). Mixed anxi ety and depressive disorder 636044055 F41.8 F/u with mental health team. Insomnia 448401373 G47.0 1 Lately with current medication s [...] ation. [id number] Malia Gonzalez MD MAIN OFFICE [address] [place] [address] 10/26/2022 10:21:59 12/27/2022 05:53:14 Obstructive sleep apnea of adult 9664084677 103 G47.33 Largely REM related mild CARMEN [...] will schedule PSG. Seasonal a llergic rhinitis 870259133 J30.2 Intermitte nt symptoms, OTC meds. Asthma 942303085 J45.90 9 Intermitte nt symptoms - much improved per her report after quitting smoking. Morbid obesity 313396678 E66.01 F/u with bariatric surgery team. Currently trying to eat healthy, daily exercise (treadmill , bedtime yoga).: Referral to different bariatric surgery program. Will check. Mixed anxi ety and depressive disorder 854357311 F41.8 F/u with mental health team. Insomnia 783093298 G47.0 1 Lately with current medication s [...] respirator y drive and hypoxemia/ hypoventil ation. [id number] Malia Gonzalez MD MAIN OFFICE [address] [facility] [place] [address] 01/11/2023 10:30:14 03/04/2023 01:51:02 Obstructive sleep apnea of adult 6885582974 103 G47.33 Largely REM related mild CARMEN [...] network and when she could get set-up. [facility] staff suggested that pt will need to [...] 30i. Chinstrap prn mouth leak. Morbid obesity 013228348 E66.01 F/u with bariatric surgery team. Currently trying to eat healthy, daily exercise (treadmill , bedtime yoga).: Referral to different bariatric surgery program. Will check.01/11: Working on weight loss with [employer] , now at 225 lb - [facility]. Insomnia 246092610 G47.0 1 Lately with current medication s [...] . Mixed anxi ety and depressive disorder 929610439 F41.8 F/u with mental health team. Seasonal a llergic rhinitis 778647848 J30.2 Intermitte nt symptoms, OTC meds. Asthma 876314203 J45.90 9 Intermitte nt symptoms - much improved per her report after quitting smoking. [id number] Malia Gonzalez MD MAIN OFFICE [address] [facility] [place] [address] 03/01/2023 11:40:08 03/04/2023 02:50:20 Obstructive sleep apnea of adult 5022911002 103 G47.33 Largely REM related mild CARMEN [...] network and when she could get set-up. [facility] staff suggested that pt will need to [...] together she hung up again. Morbid obesity 578209859 E66.01 F/u with bariatric surgery team. Currently trying to eat healthy, daily exercise (treadmill , bedtime yoga).: Referral to different bariatric surgery program. Will check.01/11: Working on weight loss with nutritioni st, now at 225 lb - congrats.1 : Continues to lose weight (Denys, merryitian) , now at 220 lb. Insomnia 337871778 G47.0 1 Lately with current medication s [...] . Mixed anxi ety and depressive disorder 386695875 F41.8 F/u with mental health team. Seasonal a llergic rhinitis 268106316 J30.2 Intermitte nt symptoms, OTC meds. Asthma 910668657 J45.90 9 Intermitte nt symptoms - much [...] ID Guarantor Name 03/04/2023 1 PADMAJA (O) [id number] 1 Yomaira Alvarenga [id number] Yomaira Alvarenga Notes Date Note Type Note [...] in [facility] Clinic in collaboration with [facility]. She has started using Wegovy injections but does not want to stay on this. In this context she presents to the sleep clinic for re-evaluation of obstructive sleep apnea diagnosed prior to last bariatric surgery in 2019. Her PCP is Rhonda Mathew PRE PRESS OPERATOR; for mental health care she sees Jennifer Fajardo MD, psychiatrist at [facility]. We requested medical records:Sleep Study 11/08/2018 [facility] ht 61 wt 258.4 lb.Low sleep efficiency 57% despite meds. Mild snoring, REM-predominant CARMEN with AHI 13/h, RDI 15/h, mean O2 sat 92%, min. O2 sat 78%, PLMI 0/h.Initial consult note 11/21/2018 with discussion of PSG results.Order for APAP 5 - 15 cm to [facility].Download APAP RM Airsense 10 Autoset She reports [...] download for further evaluation. A download from [facility] from 11/30/18 to 02/27/19 showed regular > [...] meds (see list) that are sedating. ESS: 4-5-9-0-1-0-0-0 = 09/10 (not driving herself) She does not feel much sleepiness, rather is fatigued at times, not aware of cataplexy, sleep paralysis, hypnagogic/hypnopompi c hallucinations. Malia Gonzalez MD [address], [place], [address], [facility] [employer], [employer] 10/15/2022 19:26:14 10/26/2022 text/html ROS as [...] [facility] duodenal switch surgery. [...] new bariatric surgery team. Malia Gonzalez MD [address], [place], [address], [facility] [place] [employer] 12/27/2022 05:52:30 01/11/2023 text/html ROS as noted in the HPI Ms Yomaira Alvarenga/Ana returns for f/u to discuss results from sleep study done for reevaluation of sleep apnea and agreed to a synchronous, 2 way communication telehealth visit. She was referred from first surgical team to other surgeon Geo Miranda MD for duodenal switch surgery around 10/25/22. A new managed care provider is Edith (phone [phone]). She is continuing weight loss with help of Wegovy injections and is currently at 225 lb.Congrats!Asthma appears well controlled wit Wisela BID, albuteral prn.No RLS.F/u with psychiatry for mental health and management of medications. In interim she had in-lab sleep study at [facility] on 11/12/22: Wt was around 236 lb [...] refreshing sleep.She had used in the past [facility] as DME for APAP around bariatric gastric sleeve surgery 01/31/2019. She had RM Airsense 10 Autoset 5 - 15 cm, ~ 11/30/2018 to 02/27/19 with nasal mask (Dreamwear nasal pillow?, allowing reading Andrews with glasses) and after mask change had good usage and mask fit. She will check with insurance and see if [facility] is in network. Otherwise will tell us other DME option. She thought that [facility] [address] [place] in [place] was the office she used before. ( , FAX [phone].) After the visit we could reach [place] [...] use wedge in interim. Malia Gonzalez MD [address], [place], [address], [facility] [place] [employer] 03/04/2023 01:49:49 03/01/2023 text/html Ms [...] duodenal switch surgery around 10/25/22. A new managed care provider is Edith (phone [phone]). She is continuing weight loss with help of Wegovy injections and is currently at 220 lb.Congrats! She had scheduled a visit with the dietitian right after this visit. As discussed in prior visit 01/11/23 she had in-lab sleep study at [facility] on 11/12/22: Wt was around 236 lb [...] of teeth.At last visit [facility] in [place] seems to have been the DME in [...] for mental health issues. Malia Gonzalez MD [address], [place], [address], [facility] [place] [employer] 03/04/2023 02:49:29 OBGyn Episode No OBEpisode recorded.
--- OUTSIDE RECORDS SUMMARY | 2025-03-11 18:31 | XMS_ITS | Patient Health Record ---
Author Organization [facility] Address [address] [place] [address] [place] [address] Care Team Providers Care Skein Yarn Drier Name Role Phone ALFONSO BRADSHAW PA-C Primary [...] W/U Status Risk Notes Problem Essential hypertension (14045973) Essential hypertension (I10) Active confirmed Problem Heartburn (60000910) Heartburn (R12) Active confirmed Problem Epigastric pain (90940454) Epigastric pain (R10.13) Active confirmed Problem Nausea (768432518) Nausea (R11.0) Active confir med Problem Obesity (379237450) Obesity, Class I & II (E66.09) Active confirmed Problem Obstructive sleep apnea syndrome (disorder) (93252242) Obstructive sleep apnea (adult) (pediatric) (G47.33) Active confirmed Problem Chronic pain (47673079) Other chronic pain (G89.29) Active confirmed Problem Pain of right knee region (finding) (173142606562471) Pain in right knee (M25.561) Active confirmed Problem Pain of left knee joint (finding) (605993329679719) Pain in left knee (M25.562) Active confirmed Problem History of bariatric surgical procedure (144423894) Bariatric surgery status (Z98.84) Active confirmed Problem 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 (360312487) Dependence on other enabling machines and devices (Z99.89) Active confirmed Problem Former smoker (4627750) Former smoker (Z87.891) Active confirmed Problem Body mass index 40+ - severely obese (550201673) BMI 45.0-49.9, adult (Z68.42) Active confirmed Problem Body mass index 40+ - morbidly obese (673441026) BMI 40.0-44.9, adult (Z68.41) Active confirmed Problem Postoperative follow-up visit (965308558) Post op follow-up exam (Z48.89) Active confirmed Problem Body mass index 40+ - severely obese (972236544) BMI 50.0-59.9, adult (Z68.43) Active confirmed Problem Ex-smoker (finding) (6477981) History of cigarette smoking (Z87.891) Active confirmed Problem Dietary management surveillance (045858445) Dietary counseling (Z71.3) Active confirmed Problem History of methamphetamine abuse (89858741622612858 ) History of methamphetamine abuse (Z87.898) Active confirmed Problem Postoperative care (regime/therapy) (253967637) Encounter for postoperative care (Z48.89) Active confirmed Problem Constipation (43307131) Constipation, unspecified constipation type (K59.00) Active confirmed Problem Smoking (99126744) Smoking (F17.200) Active con firmed Problem Obese class II (533114043414688) BMI 36.0-36.9,adult (Z68.36) Active confirmed Problem Weight gain (936926159) Weight gain (R63.5) Active confirmed Problem Morbid obesity (196392070) Morbid obesity due to excess calories (E66.01) Active confirmed Problem Electronic cigarette user (finding) (433384622) Electronic cigarette use (Z78.9) Active confirmed Problem History of bariatric surgical procedure (347878212) Status post bariatric surgery (Z98.84) Active confirmed Problem Asthma without status asthmaticus (67811321) Asthma, unspecified asthma severity, unspecified whether complicated, unspecified whether persistent (J45.909) Active confirmed Problem Sleep apnea (81478935) Sleep apnea in adult (G47.30) Active confirmed Problem Insomnia (197505954) Insomnia, unspecified type (G47.00) Active confirmed Problem History of opioid abuse (495566583138099) History of opioid abuse (Z87.898) Active confirmed Problem Body mass index 40+ - severely obese (396143596) Body mass index [BMI] 45.0-49.9, adult (Z68.42) Active confirmed Plan Of Treatment No Information Insurance Providers Payer Name Payer Address Payer Phone Subscriber Number Group Number Insured Name Patient Relationship to Insured Coverage Start Date Coverage End Date [facility] [address] [place] [address] [id number] SÁNCHEZ LUCAS Self - patient is the insured Medical [...]
--- OUTSIDE RECORDS SUMMARY | 2025-03-11 18:31 | XMS_ITS | Clinical Summary ---
Author Organization [employer] Address [facility] [place] [address] Care Team Providers Care Executive Team Leader Name Role Phone Peggy Crowe RN Unavailable [phone] Evangelista Miranda MD Unavailable [phone] Unavailable [phone] Ryan Mathew LEARN TO SWIM INSTRUCTOR Primary Care Provider [phone] Allergies Active Allergy Reactions Criticality Noted Date [...] Tablet (40 mg) by mouth with dinner. Active propranoloL (INDERAL) 20 mg tabletIndications: Anxiety [...] by mouth once daily. 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 [address] [place] [address] Ashley Fontana LICSW Failed Appointment 03/10/2025 Travel 03/05/2025 Refill [facility] [place] [address] [place] [address] Riana Osorio, KAZ Refill Request (Ondansetron) 02/27/2025 10:[address] [facility] [address] [place] [address] Ashley Fontana LICSW Individual Therapy 02/22/2025 Travel 02/14/2025 1:[address] [facility] [address] [place] [address] Ashley Fontana LICSW Individual Therapy 02/11/2025 Travel 02/08/2025 Refill [facility] [place] [address] [place] [address] Riana Osorio, KAZ Refill Request (Ondansetron) 02/06/2025 Travel 02/04/2025 10:[address] [facility] [address] [place] [address] Ashley Fontana, CONCRETE POINTER Individual Therapy 01/30/2025 Travel 01/25/2025 10:[address] [facility] [address] [place] [address] Ashley Fontana, [facility] Individual Therapy 01/20/2025 Travel 01/17/[address] [facility] [address] [place] [address] Ashley Fontana, [facility] Mental Health Care Coordination 01/11/2025 10:[address] [facility] [address] [place] [address] Ashley Fontana [facility] Individual Therapy 01/06/2025 Travel 01/03/2025 Refill [facility] [address] [place] [address] Riana Osorio, LEARN TO SWIM INSTRUCTOR Refill Request (Ondansetron) 01/02/2025 12:[address] [facility] [address] [place] [address] Ashley Fontana [facility] Individual Therapy 01/02/2025 11:00 AM CDT Telemedicine [facility] [place] [address] [place] [address] Riana Osorio, KAZ Telehealth ([facility] f/u ); Weight 01/01/2025 Travel 12/28/2024 Travel 12/26/2024 Refill [facility] [place] [address] [place] [address] Riana Osorio, LEARN TO SWIM INSTRUCTOR Refill Request (Ondansetron) from Last 3 Months Immunizations Immunization Administration [...] 1 Lindsey Alvarenga Depression Daughter 2 Columba Roue Alcoholism Father Olvin Freih Allergies Father Olvin Freih Depression Father Olvin Freih Drug Abuse Father Olvin Freih Hypertension Father Olvin Freih Obesity Father Olvin Freih Psychiatric illness Father Olvin Freih Rheum arthritis Father Olvin Freih Stroke Father Olvin Freih Allergies Maternal Aunt Sona Lico Anxiety disorder Maternal Aunt Sona Barfield Asthma Maternal Aunt Sona Lico COPD Maternal Aunt Sona Lico Coronary artery disease Maternal Aunt Sona Lico Depression Maternal Aunt Sona Lico Drug Abuse Maternal Aunt Sona Lico Hypertension Maternal Aunt Sona Lico Rheum arthritis Maternal Aunt Sona Lico Coronary artery disease Maternal Grandfather Olvin Lico Heart failure Maternal Grandfather Olvin Lico Rheum arthritis Maternal Grandfather Olvin Lico Hypertension Maternal Grandmother Lindsey Lico Rheum arthritis Maternal Grandmother Lindsey Lico Thyroid Disease Maternal Grandmother Lindsey Lico Alcoholism Maternal Uncle Tevin Robel & Edgard Lico Allergies Maternal Uncle Tevin Blacke & Edgard Lico Depression Maternal Uncle Tevin Robel & Edgard Lico Drug Abuse Maternal Uncle Tevin Robel & Edgard Lico Hypertension Maternal Uncle Tevin Robel & Edgard Lico Allergies Mother Laurita Freih Anxiety disorder Mother Laurita Andrade Coronary artery disease Mother Laurita Freih Depression Mother Laurita Freih Drug Abuse Mother Laurita Freih Heart failure Mother Laurita Freih Hypertension Mother Laurita Freih Psychiatric illness Mother Laurita Freih Rheum arthritis Mother Laurita Andrade Coronary artery disease Paternal Grandfather Ronaldo Caal h Obesity Paternal Grandfather Ronaldo Freren Stroke Paternal Grandfather Ronaldo Andrade Cancer-breast Paternal Grandmother Shannon Freren Psychiatric illness Sister 1 Allergies Sister 2 [...] Aunt Sona Barfield Alive Maternal Grandfather Olvin Lico Alive Maternal Grandmother Lindsey Barfield Alive Maternal [...] PHQ-2 Answer Date Recorded PHQ-2 TOTAL SCORE 4 03/10/2025 Social Connections Answer Date Recorded Do you [...] on file Legal Sex Female 5:18 AM HIGH RIGGER Gender Identity Not on file Sexual Orientation Not on file Occupation Industry Job Start Date Job End Date unemployed Not on file Not on file Not on file Obstetrics History Last Filed Vital Signs Vital Sign Reading Time Taken Comments Blood Pressure 127/85 04/26/2024 10:01 AM HIGH RIGGER Pulse 81 04/26/2024 10:01 AM HIGH RIGGER Temperature 36.9 C (98.5 F) 04/26/2024 10:01 AM HIGH RIGGER Respiratory Rate 20 04/26/2024 10:01 AM HIGH RIGGER Oxygen Saturation 98% 04/26/2024 10:01 AM HIGH RIGGER Inhaled Oxygen Concentration - - Weight 79.4 kg (175 lb) 01/02/2025 10:00 AM CDT Height 152.4 cm (5') 01/02/2025 10:00 AM CDT Body Mass Index 34.18 01/02/2025 10:00 AM CDT Plan of Treatment Upcoming Encounters Date Type Department Care Team (Late st Contact Info) Description 03/25/2025 11:00 AM HIGH RIGGER Telemedicine [facility] [place] [address] [facility] [address] [place] [phone] Michelle Holly, RD [address] [facility] [address] [place] [address] 03/25/2025 11:30 AM HIGH RIGGER Telemedicine [facility] [place] [address] [facility] [address] [place] [phone] Riana Osorio, LEARN TO SWIM INSTRUCTOR [address] [facility] [address] [place] [address] 03/28/2025 1:00 PM HIGH RIGGER Telemedicine [facility] [address] [place] [address] Ashley Fontana, [facility] [address] [place] [address] Health Maintenance Due Date Last Done Comments Pap test for age 21-65 09/13/2009 09/13/2006 Lipids for age 45-75 2021 09/13/2006 Mammogram for age 45-75 2021 Influenza Vaccine (#1) 2025 , 03/25/2023, 03/19/2011, Additional history exists BMI (ht and wt on same day) for age 18+ 01/02/2026 01/02/2025, 09/26/2024, 09/26/2024, Additional history exists Depression screening for age 12+ 03/10/2026 03/10/2025, 01/02/2025, 09/26/2024, Additional history exists Tetanus booster [...] history exists Medical Devices Implanted Type Area Automation Architect Device Identifier Shelf Expiration Date Model / Serial / Lot Jimenez [employer] Nephew Size 3-44 Right 9mm Journey Ii Deep Dished Articular Insert Implanted:Qty: 1 on 07/24/2020 by Samra Moura MD at [facility] Total Joint Right: Knee [employer] 09/23/2028 [id number] / / [id number] Description:Jimenez&Nephew Marv rnjayde II, XLPE, Size 3-4, Right, 9mm, Deep Dished Articular Insert Cmnt Bone Simplex P 1pk - [id number] Implanted:Qty: 1 on 05/08/2020 by Samra Moura MD at [facility] Left: Knee [employer] 06/22/2021 6191-1-001# / / [id number] Cmnt Bone Simplex P 1pk - [id number] Implanted:Qty: 1 on 05/08/2020 by Samra Moura MD at [facility] Left: Knee [employer] 09/19/2021 6191-1-001# / / [id number] Patella Sz29 Antionette Ii Oval Non Pors - [id number] Implanted:Qty: 1 on 05/08/2020 by Samra Moura MD at [facility] Left: Knee [employer] 12/25/2029 [id number]# / / [id number] Baseplate Tib Lt Sz 3 Picked Edge Sewing Machine Operator Journey - [id number] Implanted:Qty: 1 on 05/08/2020 by Samra Moura MD at [facility] Left: Knee [employer] 12/03/2029 [id number]# / / [id number] Fem Lt Sz4 Journey Ii Cru Ret Oxin Non Pors - [id number] Implanted:Qty: 1 on 05/08/2020 by Samra Moura MD at [facility] Left: Knee [employer] 10/29/2029 [id number]# / / [id number] [employer] Jourhydes Deep Dished Articular Insert Size 3-4, 11mm [id number] - [id number] Implanted:Qty: 1 on 05/08/2020 by Samra Moura MD at [facility] Left: Knee 06/23/2023 [id number] / / [id number] Baseplate Tib Rt Sz 3 Picked Edge Sewing Machine Operator Journey - [id number] Implanted:Qty: 1 on 07/24/2020 by Samra Moura MD at [facility] Right: Knee [employer] 04/07/2030 [id number] / / [id number] Fem Rt Sz 4 Journey Ii Cru Retoxin Non Pors - [id number] Implanted:Qty: 1 on 07/24/2020 by Samra Moura MD at [facility] Right: Knee [employer] 12/02/2029 [id number] / / [id number] Cmnt Bone Simplex P 1pk - [id number] Implanted:Qty: 1 on 07/24/2020 by Samra Moura MD at [facility] Right: Knee [employer] 07/20/2021 6191-1-001 / / [id number] Cmnt Bone Simplex P 1pk - [id number] Implanted:Qty: 1 on 07/24/2020 by Samra Moura MD at [facility] Right: Knee [employer] 09/19/2021 6191-1-001 / / [id number] Patella Sz 29 Antionette Ii Oval Non Pors - [id number] Implanted:Qty: 1 on 07/24/2020 by Samra Moura MD at [facility] Right: Knee [employer] 03/14/2026 [id number] / / [id number] Speedbridege Implant Systme With Scorpion Multifire Needle [id number]-4 - [id number] Implanted:Qty: 1 on 06/18/2021 by Samra Moura MD at [facility] 02/19/2023 [id number] / / [id number] Biocomposite Knotless Swivlelock Keo 4.75x19.1mm With Whiteblack Rozet Tape [id number] - [id number] Implanted:Qty: 1 on 06/18/2021 by Samra Moura MD at [facility] 11/19/2024 [id number] T / / [id number] Procedures Procedure Name Priority Date/Time Associated Diagnosis Comments SCAN-COLONOSCOPY 08/30/2024 3:30 PM CDT ANTI HIV 1/2 Routine 09/13/2006 4:28 PM CDT Screening Exam Venereal Disease ANTI HCV Routine 09/13/2006 4:28 PM CDT Screening Exam Venereal Disease CHOLESTEROL,TOTAL Routine 09/13/2006 4:2 8 PM CDT Screening Lipid Disorders SIDING INSTALLER THIN PREP PAP SCREEN IMAGED Routine 09/13/2006 4:27 PM CDT Screening Malignant Neoplasms Cervix from Last 3 Months or Most Recently Relevant to Health Maintenance Results * SCAN-COLONOSCOPY (08/30/2024 3:30 PM CDT) Narrative Procedure Note Jaja Whitman MD - 08/30/2024 2:11 PM CDT [facility] [address] [place] [address], [address], [place] [address] Patient Name: Yomaira Alvarenga Gender: Female Exam Date: 08/30/2024 Visit Number: [id number] Age: 49 Years 2 Months Date of : 1975 Attending MD: Jaja Whitman MD Medical Record#: [id number] ----- Procedure: Colonoscopy Indications: Colorectal cancer screening Referring MD: Ryan Mathew STUDENT SUCCESS ADVISOR Primary MD: Ryan Mathew STUDENT SUCCESS ADVISOR Medications: Admitting Medications: 0.9% Normal Saline at TKO Intra Procedure Medications: Patient received monitored anesthesia care. Complications: No immediate complications Procedure: An examination of the heart and lungs was performed and found to be withinacceptable limits. The patient was therefore deemed a reasonablecandidate for endoscopy and monitored anesthesia care. The risks, benefits and plan of the procedure were discussed with thepatient and/or patient dental detail representative and all questions were answered. After [...] in 189.19 36.90 Race: White Preferred Language: Hungarian cc: Ryan Mathew STUDENT SUCCESS ADVISOR cc: Ryan Quincy STUDENT SUCCESS ADVISOR [facility] [phone] Result [facility] Jaja Whitman MD OTHER Final Result * ANTI HCV (09/13/2006 4:28 PM CDT) ANTI HCV Non-reacti ve [facility] Blood specimen (specimen) BLOOD SPECIMEN / Unknown 09/13/2006 4:28 PM CDT 09/13/2006 4:24 PM CDT Result [facility] Gilson Ching MD SEND OUTS Final Resu lt [facility] INTERNAL ZIP [id number] [place] [address] * (ABNORMAL) CHOLESTEROL,TOTAL (09/13/2006 4:28 PM CDT) CHOLESTEROL,TO KAMLESH 262(H) 110 - 199 mg/dL [facility] Blood specimen (specimen) BLOOD SPECIMEN / Unknown 09/13/2006 4:28 PM CDT 09/13/2006 4:24 PM CDT Result [facility] Gilson Ching MD CHEMISTRY Final Resu lt [facility] INTERNAL ZIP [id number] [place] [address] * ANTI HIV 1/2 (09/13/2006 4:28 PM CDT) ANTI HIV 1/2 Non-reacti ve [facility] Blood specimen (specimen) BLOOD SPECIMEN / Unknown 09/13/2006 4:28 PM CDT 09/13/2006 4:24 PM CDT Result [facility] Gilson Ching MD SEND OUTS Final Resu lt [facility] INTERNAL ZIP [id number] [place] [address] * SIDING INSTALLER THIN PREP PAP SCREEN IMAGED (09/13/2006 4:27 PM CDT) CYTOLOGY CYTOPATHOLOGY REPORT [facility] Status: Final Report [id number] CLINICAL INFORMATION LMP : 09/05/06 Previous Pap Date : 3YR AGO Previous PAP Dx : Negative for intraepithelial lesion or malignancy. Previous Marquand/bx date : None Previous Colposcopy/Bx: None Hormone Usage : None Menstrual Status : Regular Periods Appearance of Cervix : Not given Marquand/Bx done today : No HPV Request : [...] lesions. COLLECTED: 09/13/06 ACCESSIONED: 09/13/06 SIGNED: 09/16/06 [facility] Cervical (Cervical) 09/13/2006 4:27 PM CDT 09/13/2006 4:25 PM CDT Gilson Ching MD PATHOLOGY/CYTOLOGY Final R esult 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
[2025-03-11 18:37] VITALS: BP 129/89; PULSE 85; RESP 18; O2SAT 98
[2025-03-11 20:06] VITALS: BP 129/89; PULSE 86; RESP 18; O2SAT 98
[2025-03-11 20:24] VITALS: BP 151/98; PULSE 86; RESP 18; TEMP 36.8; O2SAT 98
== END 2025-03-11 20:49 | disposition short-term general hospital (02) ==
PROVIDERS: Emergency Provider Family Medicine
DX: S02.40FA Zygomatic fracture, left side, initial encounter for closed fracture (principal); S02.32XA Fracture of orbital floor, left side, initial encounter for closed fracture; S02.40DA Maxillary fracture, left side, initial encounter for closed fracture; Y04.2XXA Assault by strike against or bumped into by another person, initial encounter
CPT/HCPCS: 70450; 70486; 99284; 99285; A9270

== ENCOUNTER 2025-03-11 20:38 | Outpatient (CLI) | payer MEDICAID, SELFPAY | END 2025-03-11 20:39 | disposition home or self-care (01) | LOC: AMB 03-12 09:26 | PROVIDERS: Visit Provider Family Medicine | DX: S02.40FA Zygomatic fracture, left side, initial encounter for closed fracture (principal) | CPT/HCPCS: A0425; A0433 ==

== ENCOUNTER 2025-03-15 10:29 | Emergency (ER) | payer MEDICAID, SELFPAY ==
--- OUTSIDE RECORDS SUMMARY | 2025-03-15 10:31 | XMS_ITS | Clinical Summary ---
Author Organization [employer] Address [address] [place] [address] Care Team Providers Care Maple Sugar Maker Name Role Phone Unavailable Primary Care [...] NEEDED Active ergocalciferol (Vitamin D-2) 1.25 MG (83083 UT) capsule TAKE 1 CAPSULE BY MOUTH [...]
--- OUTSIDE RECORDS SUMMARY | 2025-03-15 10:31 | XMS_ITS | Clinical Summary ---
Author Organization [facility] Address [address] [place] [address] Care Team Providers Care Coutierier Name Role Phone Alfacarmen Dominic Mckeon Unavailable [phone] Ryan Mathew CNP Primary Care Provider [phone] Kelly Hoover Pharm D Unavailable [phone] Allergies Active Allergy Reactions Criticality Noted Date [...] 01/30/2019 Overview (02/08/2024): 02/08/24 Patient followed through [facility] bariatric surgery service. Underwent conversion from a [...] provider - Has ongoing visits with a machine sand mixer currently through their bariatric service Assessment & Plan (02/08/2024 10:10 AM CDT): 02/08/24 Patient followed through [facility] bariatric surgery service. Underwent conversion from a [...] provider - Has ongoing visits with a machine sand mixer currently through their bariatric service Morbid obesity [...] 9:27 PM CDT Respiratory Rate 14 10/14/2024 4:3 0 AM CDT Oxygen Saturation 98% 10/14/2024 4:3 [...] 08/07/2024 02/08/2024, 01/31/2023 Influenza Vaccine (#1) 2025 , 03/25/2023, 03/19/2011, Additional history exists Cologuard 10/01/2025 [...] this topic Medical Devices Implanted Type Area Sports Commentator Device Identifier Shelf Expiration Date Model / Serial / Lot Seamguard Stplr Endo Breanna 60 - [id number] Implanted:Qty : 2 on 01/30/2019 by Esther Solano MD at [facility] Supply N/A: Abdomen [employer] 08/20/2021 [id number] / / [id number] Seamguard Stplr Endo Breanna 60 - [id number] Implanted:Qty : 3 on 01/30/2019 by Esther Solano MD at [facility] Supply N/A: Abdomen [employer] 08/20/2021 [id number] / / [id number] Procedures Procedure Name Priority Date/Time Associated Diagnosis [...] Narrative 11/19/2022 3:53 PM CDT EXAM: MAMMO ([facility]) DIGITAL SCREENING BI REASON FOR EXAM: [...] Most Recently Relevant to Health Maintenance Insurance [facility] Address: [address] [place] [address] [facility] Address: [address] [place] [address] [employer] Advance Directives For more information, please contact: [phone] * Full Code (Latest Code Status on File) Date Activated Date Inactivated Comments 01/30/2019 11:08 AM 01/31/2019 7:05 PM Question Answer Comments How was code status determined? Patient Care Teams Coutierier Relationship Specialty Start Date End Date Ryan Mtahew CNP [address] [place] [address] PCP - General 09/02/22 Dominic Amato [address] [place] [address] Mental Health Provider 11/07/18 Kelly Hoover, Pharm D [address] [place] [address] Consulting Pharmacist Pharmacy 09/02/22
--- OUTSIDE RECORDS SUMMARY | 2025-03-15 10:31 | XMS_ITS | Clinical Summary ---
Author Organization [employer] [facility] Address [facility] [place] [address] Care Team Providers Care Php Programmer Name Role Phone Peggy Crowe RN Unavailable [phone] Evangelista Miranda MD Unavailable [phone] Unavailable [phone] Ryan Mathew RAG SHREDDER Primary Care Provider + [phone] Allergies Active Allergy Reactions Criticality Noted Date [...] anxiety disorder) 04/30/2024 Methamphetamine dependence in remission 05/07/20 24 S/P conversion of sleeve to gastric [...] Encounters Date Type Department Care Team Description 03/14/2025 Travel 03/12/2025 Telephone [facility] [address] [place] [address] Ashley Fontana LICSW Appointment 03/10/2025 Travel 03/05/2025 Refill [facility] [place] [address] [place] [address] Riana Osorio, KAZ Refill Request (Ondansetron) 02/27/2025 10:15 AM CDT Telemedicine [facility] [address] [place] [address] Ashley Fontana LICSW Individual Therapy 02/22/2025 Travel 02/14/2025 1:45 PM CDT Telemedicine [facility] [address] [place] [address] Ashley Fontana LICSW Individual Therapy 02/11/2025 Travel 02/08/2025 Refill [facility] [place] [address] [place] [address] Riana Osorio, KAZ Refill Request (Ondansetron) 02/06/2025 Travel 02/04/2025 10:15 AM CDT Telemedicine [facility] [address] [place] [address] Ashley Fontana, PARI MUTUEL TICKET CASHIER Individual Therapy 01/30/2025 Travel 01/25/2025 10:15 AM CDT Telemedicine [facility] [address] [place] [address] Ashley Fontana, [facility] Individual Therapy 01/20/2025 Travel 01/17/2025 Telephone [facility] [address] [place] [address] Ashley Fontana, [facility] Mental Health Care Coordination 01/11/2025 10:15 AM CDT Telemedicine [facility] [address] [place] [address] Ashley Fontana [facility] Individual Therapy 01/06/2025 Travel 01/03/2025 Refill [facility] [employer] [address] [place] [address] Riana Osorio, RAG SHREDDER Refill Request (Ondansetron) 01/02/2025 12:00 PM CDT Telemedicine [facility] [address] [place] [address] Ashley Fontana [facility] Individual Therapy 01/02/2025 11:00 AM CDT Telemedicine [facility] [place] [address] [place] [address] Riana Osorio, KAZ Telehealth ([facility] f/u ); Weight 01/01/2025 Travel 12/28/2024 Travel 12/26/2024 Refill [facility] [place] [address] [place] [address] Riana Osorio, RAG SHREDDER Refill Request (Ondansetron) from Last 3 Months [...] Daughter 2 Columba Alvarenga Alive Father Olvin Baronih Maternal Aunt Sona Barfield Alive Maternal Grandfather [...] or isolated from those around you? 0 03/14/2025 Financial Resource Strain Answer Date R ecorded Difficulty of Paying Living Expenses 3 03/14/2025 Difficulty of Paying Living Expenses Not on file 03/14/2025 Food Insecurity Answer Date Recorded Do you worry your food will run out before you are able to buy more? 1 03/14/2025 Transportation Needs Answer Date Record ed Does lack of transportation keep you from medica l appointments? 2 03/14/2025 Does lack of transportation keep you from work, meetings or getting things that you need? 1 03/14/2025 Housing Stability Answer Date Recorded What is your housing situation today? 1 03/14/2025 Utilities Answer Date Recorded Do you have trouble paying f or utilities (for example, heat, electricity, water, phone)? 1 03/14/2025 Comments No Sex and Gender Information Value Date Recorded Sex Assigned at Not on file Legal Sex Female 5:18 AM REINSURANCE ANALYST Gender Identity Not on file Sexual Orientation Not on file Occupation Industry Job Start Date Job End Date unemployed Not on file Not on file Not on file Obstetrics History Last Filed Vital Signs Vital Sign Reading Time Taken Comments Blood Pressure 127/85 04/26/2024 10:01 AM REINSURANCE ANALYST Pulse 81 04/26/2024 10:01 AM REINSURANCE ANALYST Temperature 36.9 C (98.5 F) 04/26/2024 10:01 AM REINSURANCE ANALYST Respiratory Rate 20 04/26/2024 10:01 AM REINSURANCE ANALYST Oxygen Saturation 98% 04/26/2024 10:01 AM REINSURANCE ANALYST Inhaled Oxygen Concentration - - Weight 79.4 kg (175 lb) 01/02/2025 10:00 AM CDT Height 152.4 cm (5') 01/02/2025 10:00 AM CDT Body Mass Index 34.18 01/02/2025 10:00 AM CDT Plan of Treatment Upcoming Encounters Date Type Department Care Team (Late st Contact Info) Description 03/18/2025 11:35 AM CDT Office Visit [facility] [address] [place] [address] Yelena Graham PA [address] [place] [address] 03/25/2025 11:00 AM REINSURANCE ANALYST Telemedicine [facility] [place] [address] [facility] [address] [place] [phone] Michelle Holly, SILVER [address] [facility] [address] [place] [address] 03/25/2025 11:30 AM REINSURANCE ANALYST Telemedicine [facility] [place] [address] [facility] [address] [place] [address] Riana Osorio, KAZ [address] [facility] [address] [place], [place] [id number] 03/28/2025 1:00 PM REINSURANCE ANALYST Telemedicine [facility] [address] [facility] [address] [place] [address] Ashley Fontana, PARI MUTUEL TICKET CASHIER [address] [place] [address] Health Maintenance Due Date Last Done Comments [...] this topic Medical Devices Implanted Type Area Stereoplotter Operator Device Identifier Shelf Expiration Date Model / Serial / Lot Jimenez [employer] Nephew Size 3-44 Right 9mm Journey Ii Deep Dished Articular Insert Implanted:Qty: 1 on 07/24/2020 by Samra Moura MD at [facility] Total Joint Right: Knee [employer] 09/23/2028 [id number] / / [id number] Description:Jimenez&Nephtevin hagen II, XLPE, Size 3-4, Right, 9mm, Deep Dished Articular Insert Cmnt Bone Simplex P 1pk - [id number] Implanted:Qty: 1 on 05/08/2020 by Samra Moura MD at [facility] Left: Knee [employer] 06/22/2021 6191-1-001# / / [id number] Cmnt Bone Simplex P 1pk - [id number] Implanted:Qty: 1 on 05/08/2020 by Samra Moura MD at [facility] Left: Knee [employer] 09/19/2021 6191-1-001# / / [id number] Patella Sz29 Antionette Ii Oval Non Pors - [id number] Implanted:Qty: 1 on 05/08/2020 by Samra Moura MD at [facility] Left: Knee [employer] 12/25/2029 [id number]# / / [id number] Baseplate Tib Lt Sz 3 Manager Fraud Journey - [id number] Implanted:Qty: 1 on 05/08/2020 by Samra Moura MD at [facility] Left: Knee [employer] 12/03/2029 [id number]# / / [id number] Fem Lt Sz4 Journey Ii Cru Ret Oxin Non Pors - [id number] Implanted:Qty: 1 on 05/08/2020 by Samra Moura MD at [facility] Left: Knee [employer] 10/29/2029 [id number]# / / [id number] Jim[employer] Nephew Joureast prospect Deep Dished Articular Insert Size 3-4, 11mm [id number] - [id number] Implanted:Qty: 1 on 05/08/2020 by Samra Moura MD at [facility] Left: Knee 06/23/2023 [id number] / / [id number] Baseplate Tib Rt Sz 3 Manager Fraud Journey - [id number] Implanted:Qty: 1 on 07/24/2020 by Samra Moura MD at [facility] Right: Knee [employer] 04/07/2030 [id number] / / [id number] Fem Rt Sz 4 Journey Ii Cru Retoxin Non Pors - [id number] Implanted:Qty: 1 on 07/24/2020 by Samra Moura MD at [facility] Right: Knee [employer] 12/02/2029 [id number] / / [id number] Cmnt Bone Simplex P 1pk - [id number] Implanted:Qty: 1 on 07/24/2020 by Samra Moura MD at [facility] Right: Knee [employer] 07/20/2021 6191-1-001 / / [id number] Cmnt Bone Simplex P 1pk - [id number] Implanted:Qty: 1 on 07/24/2020 by Samra Moura MD at [facility] Right: Knee [employer] 09/19/2021 6191-1-001 / / [id number] Patella Sz 29 Antionette Ii Oval Non Pors - [id number] Implanted:Qty: 1 on 07/24/2020 by Samra Moura MD at [facility] Right: Knee [employer] 03/14/2026 [id number] / / [id number] Speedbridege Implant Systme With Scorpion Multifire Needle [id number] - [id number] Implanted:Qty: 1 on 06/18/2021 by Samra Moura MD at [facility] 02/19/2023 [id number] / / [id number] Biocomposite Knotless Swivlelock Boulder 4.75x19.1mm With Whiteblack Anderson Tape [id number] - [id number] Implanted:Qty: 1 on 06/18/2021 by Samra Moura MD at [facility] 11/19/2024 [id number] T T / / [id number] Procedures Procedure Name Priority Date/Time Associated Diagnosis Comments SCAN-COLONOSCOPY 08/30/2024 3:30 PM CDT ANTI HIV 1/2 Routine 09/13/2006 4:28 PM CDT Screening Exam Venereal Disease ANTI HCV Routine 09/13/2006 4:28 PM CDT Screening Exam Venereal Disease CHOLESTEROL,TOTAL Routine 09/13/2006 4:2 8 PM CDT Screening Lipid Disorders BIOLOGY INSTRUCTOR THIN PREP PAP SCREEN IMAGED Routine 09/13/2006 4:27 PM CDT Screening Malignant Neoplasms Cervix from Last 3 Months or Most Recently Relevant to Health Maintenance Results * SCAN-COLONOSCOPY (08/30/2024 3:30 PM CDT) Narrative Procedure Note Jaja Whitman MD - 08/30/2024 2:11 PM CDT [facility] [address] [facility], [address], [place] [address] Patient Name: Yomaira Alvarenga Gender: Female Exam Date: 08/30/2024 Visit Number: [id number] Age: 49 Years 2 Months Date of : 1975 Attending MD: Jaja Whitman MD Medical Record#: [id number] ----- Procedure: Colonoscopy Indications: Colorectal cancer screening Referring MD: Ryan Mathew VOCATIONAL TRAINING TEACHER Primary MD: Ryan Mathew VOCATIONAL TRAINING TEACHER Medications: Admitting Medications: 0.9% Normal Saline at O Intra Procedure Medications: Patient received monitored anesthesia care. Complications: No immediate complications Procedure: An examination of the heart and lungs was performed and found to be withinacceptable limits. The patient was therefore deemed a reasonablecandidate for endoscopy and monitored anesthesia care. The risks, benefits and plan of the procedure were discussed with thepatient and/or patient client account representative and all questions were answered. After [...] in 189.19 36.90 Race: White Preferred Language: Venezuelan cc: Ryan Mathew ANTONIO cc: Ryan Mathew VOCATIONAL TRAINING TEACHER [facility] [phone] Jaja Whitman MD OTHER Final Result * ANTI HCV (09/13/2006 4:28 PM CDT) ANTI HCV Non-reacti ve [facility] Blood specimen (specimen) BLOOD SPECIMEN / Unknown 09/13/2006 4:28 PM CDT 09/13/2006 4:24 PM CDT Gilson Ching MD SEND OUTS Final Resu lt Performing Organization Address City/[facility]/ZIP Co de Phone Number [facility] INTERNAL ZIP [address] [place] [phone] * (ABNORMAL) CHOLESTEROL,TOTAL (09/13/2006 4:28 PM CDT) CHOLESTEROL,TO KAMLESH 262(H) 110 - 199 mg/dL [facility] Blood specimen (specimen) BLOOD SPECIMEN / Unknown 09/13/2006 4:28 PM CDT 09/13/2006 4:24 PM CDT Result [facility] Gilson Ching MD CHEMISTRY Final Resu lt Performing Organization Address City/[facility]/ZIP Co de Phone Number [facility] INTERNAL ZIP [phone] [place] [phone] * ANTI HIV 1/2 (09/13/2006 4:28 PM CDT) ANTI HIV 1/2 Non-reacti [facility] Blood specimen (specimen) BLOOD SPECIMEN / Unknown 09/13/2006 4:28 PM CDT 09/13/2006 4:24 PM CDT Gilson Ching MD SEND OUTS Final Resu lt [facility] INTERNAL ZIP [address] [address] * BIOLOGY INSTRUCTOR THIN PREP PAP SCREEN IMAGED (09/13/2006 4:27 PM CDT) CYTOLOGY CYTOPATHOLOGY REPORT [facility] Status: Final Report [id number] CLINICAL INFORMATION LMP : 09/05/06 Previous Pap Date : 3YR AGO Previous PAP Dx : Negative for intraepithelial lesion or malignancy. Previous [place]/bx date : None Previous Colposcopy/Bx: None Hormone Usage : None Menstrual Status : Regular Periods Appearance of Cervix : Not given [place]/Bx done today : No HPV Request : [...] lesions. COLLECTED: 09/13/06 ACCESSIONED: 09/13/06 SIGNED: 09/16/06 [facility] Cervical (Cervical) 09/13/2006 4:27 PM CDT 09/13/2006 4:25 PM CDT us Gilson Ching MD PATHOLOGY/CYTOLOGY Final R esult [facility] INTERNAL ZIP [address] [address] from Last 3 Months or Most Recently Relevant to Health Maintenance Insurance [facility] Advance Directives Documents on File Type Date Recorded Patient Master [employer] Healthcare Directive 09/20/2023 024 * [...] Status Discussion: Per Existing Order Care Teams Php Programmer Relationship Specialty Start Date End Date Ryan Mathew, RAG SHREDDER [address] [place] [address] PCP - General Nurse Practitioner 06/13/24 Peggy Crowe, RN [address] [phone] Finishing Frame Runner Registered Nurse 11/25/22 Evangelista Miranda MD [address] [phone] Consulting Physician Surgery - General 11/25/22 Michelle Holly, SILVER [address] [phone] Ict Analyst 10/25/23
--- OUTSIDE RECORDS SUMMARY | 2025-03-15 10:31 | XMS_ITS | Patient Health Record ---
Author Organization [facility] Address [address] [place] [address] [place] [address] Care Team Providers Care Nurse Prn Name Role Phone ALFONSO BRADSHAW PA-C Primary [...] W/U Status Risk Notes Problem Essential hypertension (39368478) Essential hypertension (I10) Active confirmed Problem Heartburn (64644202) Heartburn (R12) Active confirmed Problem Epigastric pain (19850631) Epigastric pain (R10.13) Active confirmed Problem Nausea (596420897) Nausea (R11.0) Active confir med Problem Obesity (737736048) Obesity, Class I & II (E66.09) Active confirmed Problem Obstructive sleep apnea syndrome (disorder) (62533803) Obstructive sleep apnea (adult) (pediatric) (G47.33) Active confirmed Problem Chronic pain (12521864) Other chronic pain (G89.29) Active confirmed Problem Pain of right knee region (finding) (815598544034866) Pain in right knee (M25.561) Active confirmed Problem Pain of left knee joint (finding) (492695045714229) Pain in left knee (M25.562) Active confirmed Problem History of bariatric surgical procedure (701235129) Bariatric surgery status (Z98.84) Active confirmed Problem 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 (266191190) Dependence on other enabling machines and devices (Z99.89) Active confirmed Problem Former smoker (3456013) Former smoker (Z87.891) Active confirmed Problem Body mass index 40+ - severely obese (752345473) BMI 45.0-49.9, adult (Z68.42) Active confirmed Problem Body mass index 40+ - morbidly obese (818244079) BMI 40.0-44.9, adult (Z68.41) Active confirmed Problem Postoperative follow-up visit (521466962) Post op follow-up exam (Z48.89) Active confirmed Problem Body mass index 40+ - severely obese (012355629) BMI 50.0-59.9, adult (Z68.43) Active confirmed Problem Ex-smoker (finding) (4574610) History of cigarette smoking (Z87.891) Active confirmed Problem Dietary management surveillance (753387353) Dietary counseling (Z71.3) Active confirmed Problem History of methamphetamine abuse (22720849287737135 ) History of methamphetamine abuse (Z87.898) Active confirmed Problem Postoperative care (regime/therapy) (305896938) Encounter for postoperative care (Z48.89) Active confirmed Problem Constipation (53688005) Constipation, unspecified constipation type (K59.00) Active confirmed Problem Smoking (23627308) Smoking (F17.200) Active con firmed Problem Obese class II (781340579643912) BMI 36.0-36.9,adult (Z68.36) Active confirmed Problem Weight gain (482390061) Weight gain (R63.5) Active confirmed Problem Morbid obesity (161470398) Morbid obesity due to excess calories (E66.01) Active confirmed Problem Electronic cigarette user (finding) (814457297) Electronic cigarette use (Z78.9) Active confirmed Problem History of bariatric surgical procedure (649464138) Status post bariatric surgery (Z98.84) Active confirmed Problem Asthma without status asthmaticus (93953032) Asthma, unspecified asthma severity, unspecified whether complicated, unspecified whether persistent (J45.909) Active confirmed Problem Sleep apnea (24756829) Sleep apnea in adult (G47.30) Active confirmed Problem Insomnia (256211691) Insomnia, unspecified type (G47.00) Active confirmed Problem History of opioid abuse (578938070548481) History of opioid abuse (Z87.898) Active confirmed Problem Body mass index 40+ - severely obese (721919538) Body mass index [BMI] 45.0-49.9, adult (Z68.42) Active confirmed Plan Of Treatment No Information Insurance Providers Payer Name Payer Address Payer Phone Subscriber Number Group Number Insured Name Patient Relationship to Insured Coverage Start Date Coverage End Date [facility] [address] [place] [phone] [id number] SÁNCHEZ LUCAS Self - patient is the [...]
[2025-03-15 10:48] VITALS: BP 126/88; PULSE 92; RESP 20; TEMP 36.6; O2SAT 98; BMI 34.2
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
--- OUTSIDE RECORDS SUMMARY | 2025-03-15 11:12 | XMS_ITS | Data Portability ---
Author Organization CARISSA [facility], [facility] Address [address] [place] [address] Care Team Providers Care A/C Technician Name Role Phone [facility] Pr sumit Care Provider Assessment No assessment recorded. Plan of Treatment Reminders Order Date Submit Date Provider Last Modified By Organization Details Last Modified Time Details Appointments None recorded. Lab rapid strep group A, throat 2023 024 [id number] [facility], [address], [address], [place], [address], 4 10:33:03 rapid strep group A, throat 2022 023 [email or web address] [id number], [address], [address], [place], [address], 3 16:22:24 SARS CoV 2 (COVID-19) Ag, QL, IA, upper respiratory specimen 2022 023 [email or web address] [id number], [address], [address], [place], [address], 3 16:22:23 rapid flu (A+B) 2022 023 [email or web address] [id number], [address], [address], [place], [address], 3 16:22:25 urinalysis, dipstick 2021 022 [email or web address] [id number], [address], [address], [place], [address], 2 14:45:21 culture, urine 2021 022 [facility], [address] [place] [address], [place], [address], 2 19:09:28 Referral None recorded. Procedures None recorded. Surgeries None recorded. Imaging None recorded. Medication Orders Medrol (Terence) 4 mg tablets in a dose pack 2023 024 [facility], [address] [facility], [place], [address], 4 10:37:30 azithromyci n 250 mg tablet 2023 024 [facility], [address] [facility], [place], [address], 4 10:38:01 benzonatate 200 mg capsule 2022 024 [facility], [address] [facility], [place], [address], 4 10:26:53 nitrofurant oin monohydrate /macrocryst als 100 mg capsule [address] [facility] [address] [facility] [place], [address], 3 15:42:38 Pyridium 200 mg tablet [address] [facility] [address] [facility] [place], [address], 15:43:11 Patient TargetsNo targets recorded. Patient Instructions Encounter Date Encounter Id Patient Instructions Last Modified By Organization Details Last Modified Time 05/02/2022 [id number] Female Urinary Tract Infection (UTI): Care Instructions Not available 05/02/2022 14:45:21 Make sure you ar e drinking plenty of water. The pyridium will turn your urine a orange color. Don't take this medication for more than 2 days. We are sending a urine culture and will contact you with results. Follow up at [facility] or your primary care office in 2-3 days if you continue to have symptoms. Go to the emergency room if you develop a fever or have any concerning symptoms. [email or web address] Not available 05/02/2022 14:49:17 05/05/2023 [id number] coronavirus (covid-19): care instructions Not available 05/05/2023 16:22:59 Increase fluids to 80-100 oz of water daily. Recommend 500 mg of Vitamin C AM and PM for 7 days. Zinc 25 mg daily for 7 days. Ok to take any OTC cold medications that work well for you. Follow up if symptoms haven't improved in one week, sooner if they become worse. In case of emergent symptoms please go to nearest ER or call 911. Not available 05/05/2023 16:23:31 05/26/2023 [id number] cough: care instructions Not available 05/26/2023 10:33:03 sore throat: car e instructions Not available 05/26/2023 10:33:03 Return in 2-4 days if no improvement. Take probiotic while on antibiotic. Over the counter tylenol ot ibuprofen as directed on the box label for pain or fever. Take over the counter cold and cough meds as directed for nasal congestion Humidifier, increase fluid intake. ER for any worsen signs or symptoms Not available 05/26/2023 10:38:16 Reason for Referral None Reported. Results Created Date Observation Date Name Description Value Unit Range Abnormal Flag Note LastModifiedBy Organization Detail LastModifiedTime 05/02/2005/07/2022 URINE CULTU RE, RAYSHAWN NE urine culture, routine Final report abnormal Not Available [facility] ([facility]) [address] [facility], [place], [address], 05/07/2022 19:09:28 05/02/20 22 05/07/2022 URINE CULTU RE, ROUTI NE result 1 Escher ichia coli abnormal Cefaz lelo <=4 ug/mL Cefaz lelo with an MELISA <=16 predi cts susce ptibi lity to the oral agent s cefac kasia, cefdi alena, cefpo doxim e, cefpr ozil, cefur oxime , cepha lexin , and lorac arbef when used for thera py of uncom plica garret urina ry tract infec tions due to E. coli, Klebs iella pneum oniae , and Prote us mirab ilis. Great er than 100,0 00 colon y formi ng units per mL Not Available [facility] ([facility]) [address] [facility], [place], [address], 05/07/2022 19:09:28 05/02/20 22 05/07/2022 URINE CULTU RE, ROUTI NE antimicrobia l susceptibili ty Commen t S = Susce ptibl e; I = Inter media te; R = Resis tant P = Posit juliana; N = Negat juliana MICS are expre ssed in micro grams per mL Antib iotic RSLT# 1 RSLT# 2 RSLT# 3 RSLT# 4 Amoxi cilli n/Cla vulan ic Acid S Ampic illin R Cefep bonita S Ceftr iaxon e S Cefur oxime S Cipro floxa zamzam S Ertap enem S Genta micin S Imipe nem S Levof loxac in S Merop enem S Nitro furan toin S Piper acill in/Ta zobac cardona S Tetra cycli ne S Tobra mycin S Trime thopr im/[place] lfa R Not Available [facility] ([facility]) [address] [facility], [place], [address], 05/07/2022 19:09:28 05/02/20 22 05/02/2022 urina lysis , dipst ick Unknown Analyte Yellow Not Available [facility] [facility] [address], [place], [address], 05/02/2022 14:13:43 05/02/20 22 05/02/2022 urina lysis , dipst ick Unknown Analyte Normal = light yellow , dark yellow Not Available [facility] [address], [place], [address], 05/02/2022 14:13:43 05/02/20 22 05/02/2022 urina lysis , dipst ick Unknown Analyte Normal = clear Not Available [address] [place] [address] [facility] [address], [place], [address], 05/02/2022 14:13:43 05/02/20 22 05/02/2022 urina lysis , dipst ick Unknown Analyte Normal = negati ve Not Available [address] [place] [address] [facility], [place], [address], 05/02/2022 14:13:43 05/02/20 22 05/02/2022 urina lysis , dipst ick Unknown Analyte Normal = Negati ve Not Available [address] [place] [address] [facility], [place], [address], 05/02/2022 14:13:43 05/02/20 22 05/02/2022 urina lysis , dipst ick Unknown Analyte Normal = Negati ve Not Available [address] [place] [address] [facility], [place], [address], 05/02/2022 14:13:43 05/02/20 22 05/02/2022 urina lysis , dipst ick Unknown Analyte Normal = 1.010, 1.015, 1.020 Not Available [address] [place] [address], [place], [address], 05/02/2022 14:13:43 05/02/20 22 05/02/2022 urina lysis , dipst ick Unknown Analyte Normal = Negati ve Not Available [address] [place] [address] [facility], [place], [address], 05/02/2022 14:13:43 05/02/20 22 05/02/2022 urina lysis , dipst ick Unknown Analyte Normal = 6.5, 7.0, 7.5, 8.0 Not Available [address] [place] [address] [facility], [place], [address], 05/02/2022 14:13:43 05/02/20 22 05/02/2022 urina lysis , dipst ick Unknown Analyte Normal = Negati ve Not Available [address] [place] [address] [facility], [place], [address], 05/02/2022 14:13:43 05/02/20 22 05/02/2022 urina lysis , dipst ick Unknown Analyte Normal = 0.2, 1.0 Not Available [address] [place] [address], [place], [address], 05/02/2022 14:13:43 05/02/20 22 05/02/2022 urina lysis , dipst ick Unknown Analyte Normal = Negati ve Not Available [address] [place] [address] [facility], [place], [address], 05/02/2022 14:13:43 05/02/20 22 05/02/2022 urina lysis , dipst ick Unknown Analyte Normal = Negati ve Not Available [address] [place] [address] [facility], [place], [address], 05/02/2022 14:13:43 05/02/20 22 05/02/2022 urina lysis , dipst ick Unknown Analyte cloudy Not Available [address] [place] [address], [place], [address], 05/02/2022 14:13:43 05/02/20 22 05/02/2022 urina lysis , dipst ick Unknown Analyte Negati ve Not Available [facility] [address], [place], [address], 05/02/2022 14:13:43 05/02/20 22 05/02/2022 urina lysis , dipst ick Unknown Analyte Negati ve Not Available [address] [place] [address] [facility] [address], [place], [address], 05/02/2022 14:13:43 05/02/20 22 05/02/2022 urina lysis , dipst ick Unknown Analyte Negati ve Not Available [address] [place] [address] [facility], [place], [address], 05/02/2022 14:13:43 05/02/20 22 05/02/2022 urina lysis , dipst ick Unknown Analyte 1.025 Not Available [address] [place], [place] [address], [place], [address], 05/02/2022 14:13:43 05/02/20 22 05/02/2022 urina lysis , dipst ick Unknown Analyte Large Not Available [address] [place], [place] [address], [place], [address], 05/02/2022 14:13:43 05/02/20 22 05/02/2022 urina lysis , dipst ick Unknown Analyte 7.0 Not Available [address] [place] [address], [place], [address], 05/02/2022 14:13:43 05/02/20 22 05/02/2022 urina lysis , dipst ick Unknown Analyte 100 mg/dL Not Available [address] [place] [address] [address], [place], [address], 05/02/2022 14:13:43 05/02/20 22 05/02/2022 urina lysis , dipst ick Unknown Analyte 1.0 E.U./d L Not Available [address] [place] [address], [place], [address], 05/02/2022 14:13:43 05/02/20 22 05/02/2022 urina lysis , dipst ick Unknown Analyte Positi ve Not Available [address] [place] [address], [place], [address], 05/02/2022 14:13:43 05/02/20 22 05/02/2022 urina lysis , dipst ick Unknown Analyte Large Not Available [address] [place] [address], [place], [address], 05/02/2022 14:13:43 05/05/20 23 05/05/2023 SARS CoV 2 (COVI D-19) Ag, QL, IA, upper respi rator y speci men Unknown Analyte positi ve Not Available [address] [place] [address], [place], [address], 05/05/2023 15:51:12 05/05/20 23 05/05/2023 rapid flu (A+B) Unknown Analyte negati ve Not Available [address] [place] [address], [place], [address], 05/05/2023 15:51:46 05/05/20 23 05/05/2023 rapid flu (A+B) Unknown Analyte negati ve Not Available [facility] [address], [place], [address], 05/05/2023 15:51:46 05/05/20 23 05/05/2023 rapid strep group A, throa t Unknown Analyte negati ve Not Available [facility] [address], [place], [address], 05/05/2023 15:50:53 05/26/19 24 05/26/2023 rapid strep group A, throa t Unknown Analyte negati ve Not Available [facility] [address], [place], [address], 05/26/2023 10:30:11 Result Notes None recorded. Problems Name Problem SNOMED Code Status Onset Date Resolution Date Notes Provider Name and Address Organization Details Recorded Time Depressive disorder 91587104 Active 2021 DORYS moss, [place] - [facility] 2 14:18:57 Anxiety 23087465 Active 2021 DORYS moss, PA - [facility] 2 14:19:03 Insomnia 287559207 Active 2021 DORYS moss, PA - [facility] 2 14:19:13 Multiple personalit y disorder 02933066 Active 2021 DORYS moss, PA - [facility] 2 14:19:27 Asthma 136668823 Active 2021 DORYS moss, PA - [facility] 2 14:19:33 Post-traum atic stress disorder 03576563 Active 2021 DORYS moss, PA - [facility] 2 14:20:01 Borderline personalit y disorder 38301318 Active 2022 Eriberto moss, PA - [facility] 3 15:48:29 Acute pharyngiti s 922480197 Active 2023 KARLOS CORDOBA, [employer] [address], [place], [address], [place] - [facility] 4 10:32:13 Acute laryngitis 7248043 Active 2023 KARLOS CORDOBA, [employer] [address], [place], [address], PA - [facility] 4 10:36:46 Problem Notes None recorded. Procedures Surgical History Date Name Laterality Status Provider Name and Address Organization Details Recorded Time laparoscopic sleeve gastrectomy completed DORYS CAPPS PA - [facility] 05/02/2022 14:21:10 hysterectomy completed DORYS CAPPS PA - [facility] 05/02/2022 14:21:20 replacement of bilateral knee joints completed DORYS CAPPS PA - [facility] 05/02/2022 14:21:36 wrist repair completed Eriberto Quevedo PA - [facility] 05/05/2023 15:50:11 arthroscopic repair of rotator cuff completed DORYS CAPPS PA - [facility] 05/02/2022 14:23:18 Imaging Results None recorded. Procedure Notes None recorded. Medical Equipment None Reported. Allergies Allergen ID Allergen Name Allergen Category Reaction Reaction Severity Criticality Documentation Date Start Date Code Code System Note Provider Name and Address Organization Details Recorded Time 06631 Ceftin medicatio n rash Not available Not available 05/02/2022 86968 6 RxNorm TAMAR CIESIELSK I null, PA - [facility] 4 10:16:20 34770 Substance with sulfonami de structure and antibacte rial mechanism of action (substanc e) medicatio n swelling Not available Not available 05/02/2022 28449 8003 SNOMED TAMAR CIESIELSK I null, PA - [facility] 4 10:17:02 75599 tramadol medicatio n other Not available Not available 05/02/2022 41918 RxNorm DORYS CAPPS null, PA - [facility] 2 14:15:59 43634 Toradol medicatio n other Not available Not available 05/02/2022 15722 RxNorm DORYS CAPPS null, PA - [facility] 2 14:16:05 07529 droperido l medicatio n other Not available Not available 05/02/2022 3648 RxNorm DORYS CAPPS null, PA - [facility] 2 14:16:17 00426 topiramat e medicatio n rash Not available Not available 05/02/2022 37936 RxNorm DORYS CAPPS null, PA - [facility] 2 14:16:34 72556 clindamyc in Not available other Not available Not available 05/02/2022 2582 RxNorm TAMAR CIESIELSK I null, PA - [facility] 4 10:17:11 597968 cortisone medicatio n other Not available Not available 05/26/2023 2878 RxNorm TAMAR CIESIELSK I null, PA - [facility] 4 10:17:58 Medications Name Sig Start Date Stop Date Status Note LastModified by Organization Details LastModified Time cyclobenzap rine 10 mg tablet 05/02 completed Not Available Not Available Not Available methocarbam ol 500 mg tablet TAKE 1 TABLET BY MOUTH AT NIGHT NEEDED FOR SLEEP active Not Available Not Available No t Available gabapentin 600 mg tablet TAKE 1 TABLET BY MOUTH TWICE DAILY active Not Available Not Available No t Available azithromyci n 250 mg tablet TAKE 2 TABLETS BY MOUTH ON DAY 1, AND THEN TAKE 1 TABLET BY MOUTH ONCE A DAY ON DAY 2 THROUGH DAY 5 active Not Available Not Available No t Available benzonatate 200 mg capsule Take 1 capsule 3 times a day by oral route as needed for 10 days. 05/26 completed Not Available Not Available Not Available ondansetron HCl 4 mg tablet TAKE 1 TABLET BY MOUTH TWICE DAILY NEEDED 05/05 completed Not Available Not Available Not Available clonazepam 0.5 mg tablet TAKE 1 TABLET BY MOUTH ONCE DAILY NEEDED active Not Available Not Available No t Available gabapentin 400 mg capsule TAKE 1 CAPSULE BY MOUTH TWICE DAILY active Not Available Not Available No t Available Pyridium 200 mg tablet Take 1 tablet 3 times a day by oral route for 2 days. 05/05 completed Not Available Not Available Not Available Milk of Magnesia 400 mg/5 mL oral suspension active Not Available Not Available N ot Available hydroxyzine pamoate 50 mg capsule TAKE 1 CAPSULE BY MOUTH THREE TIMES DAILY NEEDED active Not Available Not Available No t Available Gas-X Extra Strength 125 mg capsule active Not Available Not Available Not Available hydroxyzine HCl 50 mg tablet TAKE 1 TO 2 TABLETS BY MOUTH ONCE DAILY NEEDED active Not Available Not Available No t Available acetaminoph en 300 mg-codeine 30 mg tablet TAKE 1 TABLET BY MOUTH EVERY 6 HOURS NEEDED 05/02 completed Not Available Not Available Not Available acetaminoph en 500 mg tablet active Not Available Not Available Not Available lamotrigine 25 mg tablet TAKE 1 TABLET BY MOUTH ONCE DAILY FOR 7 DAYS THEN 2 ONCE DAILY CONTINUE TO TITRATE WEEKLY BY 25MG TILL REACHING 200MG/DAY 05/05 completed Not Available Not Available Not Available gabapentin 800 mg tablet TAKE 1 TABLET BY MOUTH THREE TIMES DAILY START ON 2 05/26 completed Not Available Not Available Not Available pantoprazol e 40 mg tablet,mendoza yed release 05/02 completed Not Available Not Available Not Available buspirone 30 mg tablet TAKE 1 TABLET BY MOUTH TWICE DAILY 05/05 completed Not Available Not Available Not Available hyoscyamine 0.125 mg sublingual tablet active Not Available Not Available Not Available propranolol ER 80 mg capsule,24 hr,extended release TAKE 1 CAPSULE BY MOUTH AT BEDTIME 05/05 completed Not Available Not Available Not Available Advair Diskus 250 mcg-50 mcg/dose powder for inhalation active Not Available Not Available N ot Available docusate sodium 100 mg capsule 05/02 completed Not Available Not Available Not Available omeprazole 20 mg capsule,del ayed release TAKE 1 CAPSULE BY MOUTH ONCE DAILY 30 MINUTES BEFORE MORNING MEAL active Not Available Not Available No t Available ergocalcife rol (vitamin D2) 1,250 mcg (50,000 unit) capsule TAKE 1 CAPSULE BY MOUTH TWICE A WEEK FOR 8 WEEKS active Not Available Not Available No t Available diazepam 10 mg tablet TAKE 1 TABLET BY MOUTH ONE HOUR PRIOR TO PROCEDURE , MAY REPEAT IF NEEDED 05/02 completed Not Available Not Available Not Available polyethylen e glycol 3350 17 gram/dose oral powder active Not Available Not Available Not Available methylpredn isolone 4 mg tablets in a dose pack TAKE DIRECTED PER PACKAGE. active Not Available Not Available No t Available propranolol 20 mg tablet TAKE 1 TABLET BY MOUTH TWICE DAILY active Not Available Not Available No t Available hydromorpho ne 4 mg tablet active Not Available Not Available Not Available ondansetron 4 mg disintegrat ing tablet DISSOLVE 1 TABLET IN MOUTH EVERY 8 HOURS NEEDED FOR NAUSEA AND FOR VOMITING active Not Available Not Available No t Available amitriptyli ne 100 mg tablet TAKE 1 TABLET BY MOUTH AT BEDTIME active Not Available Not Available No t Available amoxicillin 875 mg-potassiu m clavulanate 125 mg tablet TAKE 1 TABLET BY MOUTH TWICE DAILY WITH MEALS 05/02 completed Not Available Not Available Not Available Ventolin HFA 90 mcg/actuati on aerosol inhaler INHALE 2 PUFFS BY MOUTH EVERY 4 HOURS DIRECTED NEEDED active Not Available Not Available No t Available buspirone 15 mg tablet TAKE 1 TABLET BY MOUTH TWICE DAILY 05/05 completed Not Available Not Available Not Available oxycodone 5 mg tablet TAKE 1 TABLET BY MOUTH EVERY 4 HOURS NEEDED FOR PAIN 05/02 completed Not Available Not Available Not Available escitalopra m 20 mg tablet TAKE 1 TABLET BY MOUTH EVERY DAY active Not Available Not Available No t Available nitrofurant oin monohydrate /macrocryst als 100 mg capsule Take 1 capsule every 12 hours by oral route for 7 days. 05/05 completed Not Available Not Available Not Available varenicline tartrate 1 mg tablet TAKE 1 TABLET BY MOUTH ONCE DAILY active Not Available Not Available No t Available varenicline tartrate 0.5 mg tablet TAKE ONE TABLET BY MOUTH ONCE DAILY DAYS 1-3, INCREASE TO TWICE DAILY DAYS 4-7, APPOINTME NT NEEDED FOR FURTHER REFILLS active Not Available Not Available No t Available Senexon-S 8.6 mg-50 mg tablet active Not Available Not Available No t Available Wegovy 2.4 mg/0.75 mL subcutaneou s pen injector INJECT 2.4 MG SUBCUTANE OUSLY ONCE A WEEK ( EVERY 7 DAYS) active Not Available Not Available No t Available Wegovy 1.7 mg/0.75 mL subcutaneou s pen injector INJECT 0.75 ML (1.7MG) UNDER THE SKIN EVERY 7 DAYS 05/26 completed Not Available Not Available Not Available Wegovy 1 mg/0.5 mL subcutaneou s pen injector INJECT 0.5ML (1MG) UNDER THE SKIN EVERY 7 DAYS 05/26 completed Not Available Not Available Not Available Wegovy 0.25 mg/0.5 mL subcutaneou s pen injector INJECT 0.5 ML (0.25 MG) UNDER THE SKIN EVERY 7 DAYS. 05/26 completed Not Available Not Available Not Available Wegovy 0.5 mg/0.5 mL subcutaneou s pen injector INJECT 0.5 ML UNDER THE SKIN EVERY 7 DAYS 05/26 completed Not Available Not Available Not Available Vitals Date Recorded Body height Body mass index (BMI) Body weight Respiratory rate Oxygen saturation Oxygen saturation in Arterial blood by Pulse oximetry Heart rate Body temperature Systolic And Diastolic Provider Name and Address Organization Details Last Updated DateTime 4 152.4 cm 41.2 kg/m2 49344.9 9 g 18 /min 99 % 99 % 86 /min 98.3 [degF] 135/89 mm[Hg] TAMAR WYNN I [facility] 4 10:22:29 Date Recorded Body height Body mass index (BMI) Body weight Oxygen saturation Oxygen saturation in Arterial blood by Pulse oximetry Heart rate Respiratory rate Body temperature Pain severity - 0-10 verbal numeric rating [Score] - Reported Systolic And Diastolic Provider Name and Address Organization Details Last Updated DateTime 2 152.4 cm 49.4 kg/m2 055912. 87 g 97 % 97 % 89 /min 20 /min 97.3 [degF] 7 129/72 mm[Hg] DORYS CAPPS PA - [email or web address] 2 14:15:01 Date Recorded Body height Body mass index (BMI) Body weight Oxygen saturation Oxygen saturation in Arterial blood by Pulse oximetry Heart rate Pain severity - 0-10 verbal numeric rating [Score] - Reported Body temperature Systolic And Diastolic Provider Name and Address Organization Details Last Updated DateTime 3 152.4 cm 41.2 kg/m2 83111.9 9 g 100 % 100 % 86 /min 10 98.3 [degF] 131/91 mm[Hg] Eriberto Emy PA - [facility] 15:54:48 Social History Question Answer Notes LastModified by Organizat ion Details LastModified Time Tobacco Smoking Status Former Smoker DORYS CAPPS isa PA - [facility] 05/02/2022 14:20:47 When Did You Quit Smoking? 1-5yearssinc elastcigaret te Information not available 05/05/2023 Have You Had A Flu Shot This Season? Yes Information not available 05/05/2023 If No, Would You Like A Flu Shot Today? No Information not available 05/05/2023 Have You Recently Traveled Abroad? No [email or web address] Information not available 05/02/2022 Sex: Unknown Functional Status Question Answer Note LastModified by Organizat ion Details LastModified Time Do you use any illicit or recreational drugs? No Information not available 05/02/2022 Do you or have you ever used any other forms of tobacco or nicotine? Yes Information not available 05/02/2022 What is your level of alcohol consumption? None [email or web address] Information not available 05/02/2022 Do you or have you ever used e-cigarettes or vape? Former user of electronic cigarettes Information not available 05/05/2023 Mental Status None recorded. Family History Nothing Reported. Medical History No medical history recorded. Gynecological History Statement/Question Response Is there any chance of ? No Obstetrics History GPAL:G 0 P 0 0 0 0 Past Encounters Encounter ID Performer Location Encounter Start Date Encounter Closed Date Diagnosis/Indication Diagnosis SNOMED-CT Code Diagnosis ICD10 Code Diagnosis IMO Codes Diagnosis Note [id number] [address] [place] [address] AveNE 23010_Hil [facility] [address] [address] 01/16/2021 19:31:55 01/16/2021 21:13:[id number] [place], [place] [address]ral AveNE [address]010[facility] 4880 [facility],[address] [address] 02/05/2022 18:14:05 02/05/2022 19:27:50 [id number] Walter_Nicolaus topCentral AveNE 23010_Hil ltopCentr alAveNE [address] [place] [address] 06/21/2019 14:05:16 06/21/2019 15:56:24 [id number] Walter_Nicolaus topCentral AveNE 23010_Hil ltopCentr alAveNE [address] [place] [address] 06/19/2020 11:48:00 06/19/2020 12:53:21 [id number] CARISSA FRANKEL 23010_Hil ltopCentr alAveNE [address] [place] [address] 05/02/2022 14:04:55 05/02/2022 14:52:54 Acute urinary tract infection [id number] N39.0 [id number] Traci Kyle, [employer] 23010_Hil ltopCentr alAveNE [address] [place] [address] 05/05/2023 14:40:17 05/05/2023 16:25:44 COVID-19 [id number] U07.1 [id number] AUSTYNHENRI CORDOBA, [employer] 23010_Hil ltopCentr alAveNE [address] [place] [address] 05/26/2023 10:07:50 05/26/2023 10:43:43 Acute pharyngitis 894217977 J02.9 Acute laryngitis 5403365 J04.0 Health Concerns Section Related Observation LastModified by Organization Detai ls LastModified Time None Recorded Concern Status LastModified by Organization Details LastModified Time None Recorded Advance Directives Directive None Recorded Payers Insurance Date Sequence Insurance Name Policy Number Policy Uribe Covered Member ID Uribe Member ID Guarantor Name 05/26/2023 1 [employer] - DOS PRIOR TO 2022 (MEDICAID REPLACEMENT - HMO) [id number] Yomaira Alvarenga [id number] Yomaira Alvarenga Notes Date Note Type Note Provider Name a nd Address Organization Details Recorded Time 2 text/html DysuriaReported by PatientDysuria and lower abdominal tenderness. Started mildly about a week ago and has worsened. C/O frequency, urgency and burning with urination. SHe was last treated for same 2 weeks ago.No fever or back pain. CARISSA FRANKEL [address] [place], [address], [place] - [facility] 05/02/2022 15:18:48 3 text/html Sore throatReported by PatientSore ThroatFor associated symptoms, patient reportssore throatandnasal congestionbut reportsno shortness of breath,no wheezing,no sinus pain,no vomiting, andno nausea. For source of patient information, patient reportsinformation obtained from patientandpatient arrived at urgent care ambulatory. For location, patient reportsthroat. For severity, patient reportsmild. For quality, patient reportsdull. For onset/timing, patient reports2 days.Pt has known positive covid 19, tested positive at home 2 days ago. Normal appetite, elimination patterns and activity levels.ROS as noted in the HPI Traci Kyle NP [address] [place], [address], [place] - [facility] 05/05/2023 16:30:20 4 text/html CoughReported by PatientROS as noted in the HPI Patient is c/o cough, dry throat and hoarse voice. Stated that she had COVID on 05/05/2023. KARLOS CORDOBA NP [address] [place], [address], [place] - [facility] 05/26/2023 10:43:17 OBGyn Episode No OBEpisode recorded.
--- OUTSIDE RECORDS SUMMARY | 2025-03-15 11:12 | XMS_ITS | Data Portability ---
Author Organization [employer], [employer] Address [address] [place] [address] Care Team Providers Care Education Site Manager Name Role Phone RHONDA MATHEW Primary Care Provider MELISSA [facility] OTHER [facility] OTHER SPECIALISTS IN GENERAL SURGERY [facility] Assessment Encounter Date Assessment Date Assessment [...] driving while excessively drowsy. 4. Weight management. [facility] Not available 03/04/2023 01:52:14 Plan of [...] note. Contact: Mobile phone 2022 023 [email or web address] [facility], [address], [place], [address], 16:20:19 Medication Orders None recorded. Patient TargetsNo [...] therapy cdahm Not available 10/26/2022 18:54:33 01/11/2023 [id number] learning about C PAP for sleep apnea cdahm Not available 03/04/2023 01:49:42 Patient was seen for 30 minute telehealth visit, >= 50% of time was spent counseling and coordinating care, discussion of sleep study and her weight loss progress. F/u 03/01/23 - hopefully after new set-up [facility]. [facility] 03/04/2023 01:44:46 03/01/2023 [id number] Patient was seen for 10 minute telehealth visit with synchronous, 2 way connection to discuss possible options for therapy of CARMEN and perioperative management. [facility] Not available 03/04/2023 02:41:29 Reason for Referral None Reported. Results Created Date Observation Date Name Description Value Unit Range Abnormal Flag Note LastModifiedBy Organization Detail LastModifiedTime 01/12/20 23 11/12/2022 polys omnog eliza, split night No observ ation record ed. [facility] [address], [place], [address], 01/11/2023 09:01:08 01/12/20 23 11/12/2022 polys omnog eliza, split night No observ ation record ed. [facility] [address], [place], [address], 01/11/2023 08:58:56 01/12/20 23 11/12/2022 polys omnog eliza, split night No observ ation record ed. [facility] [address], [place], [address], 01/11/2023 09:01:51 01/12/20 23 11/12/2022 polys omnog eliza, split night No observ ation record ed. [facility] [address], [place], [address], 03/29/2023 23:04:19 Result Notes None recorded. Problems Name Problem SNOMED Code Status Onset Date Resolution Date Notes Provider Name and Address Organization Details Recorded Time Obstructive sleep apnea of adult 7243738873671 Active 2022 Malia Gonzalez MD [address], [place], [address], [facility] [place] [employer] DB 3 05:48:37 Morbid obesity 533790086 Active 2022 Malia Gonzalez MD [address], [place], [address], [facility] [employer] DB 3 05:48:41 Insomnia 211123905 Active 2022 Malia Gonzalez MD [address] [place] [address]. [address], [place], [address], [facility] [employer]. DB 3 05:48:45 Mixed anxiety and depressive disorder 392974361 Active 2022 Malia Gonzalez MD [address] [place] [address]. [address], [place], [address], [facility] [employer]. DB 3 05:48:47 Seasonal allergic rhinitis 212221657 Active 2022 Malia Gonzalez MD [address], [place], [address], [facility] [employer] DB 3 05:48:49 Asthma 096582409 Active 2022 Malia Gonzalez MD [address] [place] [address]. [address], [place], [address], [facility] [employer]. DB 3 05:48:51 Notes:CARMEN, obesity, insomnia , nasal allergies, asthma, depression/anxiety/PTSD/nightmares Problem Notes None recorded. Procedures Surgical History Date Name Laterality Status Provider Name and Address Organization Details Recorded Time 06/18/19 22 repair of musculotendinous cuff of shoulder completed Tamy Mireles [email or web address] 09/28/2022 12:52:58 02/01/20 19 bariatric operative procedure completed Malia Gonzalez MD [address], [place], [address], [facility] [employer] DB 10/14/2022 18:19:18 Hysterectomy completed Malia Gonzalez MD [address], [place], [address], [facility] [employer]. 10/15/2022 13:40:46 Imaging Results None recorded. Procedure Notes None recorded. Medical Equipment None Reported. Allergies Allergen ID Allergen Name Allergen Category Reaction Reaction Severity Criticality Documentation Date Start Date Code Code System Note Provider Name and Address Organization Details Recorded Time 2089 Ceftin medicatio n Not available Not available Not available 09/28/2022 09387 6 RxNorm Tamy moss, [facility] [employer]. 3 12:42:45 2090 Substance with sulfonami de structure and antibacte rial mechanism of action (substanc e) medicatio n Not available Not available Not available 09/28/2022 45054 8003 SNOMED Tamy moss, [facility] [employer]. 3 12:43:12 2091 Cortizone medicatio n Not available Not available Not available 09/28/2022 99485 40 RxNorm Tamy moss, [facility] [employer] DB 3 12:43:58 2092 clindamyc in Not available Not available Not available Not available 09/28/2022 2582 RxNorm Tamy moss, [facility] [employer]. 3 12:45:23 2109 droperido l medicatio n Not available Not available Not available 10/14/2022 3648 RxNorm Malia Gonzalez MD [address], [place], [address], [facility] [employer] DB 3 18:36:24 2110 topiramat e medicatio n Not available Not available Not available 10/14/2022 51734 RxNomynor Gonzalez MD [address], [place], [address], [facility] [employer] DB 3 18:37:19 2111 Toradol medicatio n Not available Not available Not available 10/14/2022 15313 RxNorm anxie ty Malia Gonzalez MD [address], [place], [address], [facility] [employer] DB 3 18:38:30 2112 tramadol medicatio n Not available Not available Not available 10/14/2022 56477 RxNorm anxie ty Malia Gonzalez MD [address], [place], [address], [facility] DB 3 18:38:37 Medications Name Sig [...] Details Last Updated DateTime 09/28/2022 46.9 kg/m2 118306.17 g Malia Gonzalez MD [address], [place], [address], [facility] [employer]. DB 09/28/2022 14:55:46 Date Recorded Body height Heart rate Oxygen saturation Oxygen saturation in Arterial blood by Pulse oximetry Systolic And Diastolic Provider Name and Address Organization Details Last Updated DateTime 3 152.4 cm 71 /min 97 % 97 % 137/93 mm[Hg] Tamybety Mireles [facility]. DB 3 12:40:53 Date Recorded Body height Provider Name an d Address Organization Details Last Updated DateTime 10/26/2022 152.4 cm Tamy Mireles [facility] [employer] DB 10/26/2022 10:40:22 Date Recorded Body height Provider Name an d Address Organization Details Last Updated DateTime 01/11/2023 152.4 cm Tamy Mireles [facility], [employer] DB 01/11/2023 10:31:19 Date Recorded Body height Provider Name an d Address Organization Details Last Updated DateTime 03/01/2023 152.4 cm Tamy Mireles [facility], [employer]. DB 03/01/2023 11:41:54 Social History Question Answer Notes LastModified by Organizat ion Details LastModified Time Tobacco Smoking Status Former Smoker aMlia Gonzalez MD [address], [place], [address], [facility] [place] [employer] 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 Obstetrics History GPAL:G 0 P 0 0 0 0 Past Encounters Encounter ID Performer Location Encounter Start Date Encounter Closed Date Diagnosis/Indication Diagnosis SNOMED-CT Code Diagnosis ICD10 Code Diagnosis IMO Codes Diagnosis Note [id number] Malia Gonzalez MD MAIN OFFICE [address] [facility] [facility] [place] [address] 09/28/2022 12:14:51 10/15/2022 19:18:30 Obstructive sleep apnea of adult 2845546122 103 G47.33 Largely REM related mild CARMEN [...] in clinic/via PCP. Seasonal a llergic rhinitis 122748247 J30.2 Intermitte nt symptoms, OTC meds. Asthma 294132721 J45.90 9 Intermitte nt symptoms - much improved per her report after quitting smoking. Morbid obesity 710930154 E66.01 F/u with bariatric surgery team. Currently trying to eat healthy, daily exercise (treadmill , bedtime yoga). Mixed anxi ety and depressive disorder 924849211 F41.8 F/u with mental health team. Insomnia 549567513 G47.0 1 Lately with current medication s [...] ation. [id number] Malia Gonzalez MD MAIN OFFICE [address] [facility] [place] [address] 10/26/2022 10:21:59 12/27/2022 05:53:14 Obstructive sleep apnea of adult 6590750113 103 G47.33 Largely REM related mild CARMEN [...] will schedule PSG. Seasonal a llergic rhinitis 007381883 J30.2 Intermitte nt symptoms, OTC meds. Asthma 880559328 J45.90 9 Intermitte nt symptoms - much improved per her report after quitting smoking. Morbid obesity 048737979 E66.01 F/u with bariatric surgery team. Currently trying to eat healthy, daily exercise (treadmill , bedtime yoga).: Referral to different bariatric surgery program. Will check. Mixed anxi ety and depressive disorder 741669400 F41.8 F/u with mental health team. Insomnia 376197560 G47.0 1 Lately with current medication s [...] respirator y drive and hypoxemia/ hypoventil ation. [id number] Malia Gonzalez MD MAIN OFFICE [address] [facility] [place] [address] 01/11/2023 10:30:14 03/04/2023 01:51:02 Obstructive sleep apnea of adult 5739933096 103 G47.33 Largely REM related mild CARMEN [...] interested in APAP therapy if required. Remembered [facility] as prior DME. She will check with her insurance if in network and when she could get set-up. [facility] staff suggested that pt will need [...] 30i. Chinstrap prn mouth leak. Morbid obesity 024974001 E66.01 F/u with bariatric surgery team. Currently trying to eat healthy, daily exercise (treadmill , bedtime yoga).: Referral to different bariatric surgery program. Will check.01/11: Working on weight loss with [employer] , now at 225 lb - [facility]. Insomnia 813934608 G47.0 1 Lately with current medication s [...] . Mixed anxi ety and depressive disorder 300614383 F41.8 F/u with mental health team. Seasonal a llergic rhinitis 643765359 J30.2 Intermitte nt symptoms, OTC meds. Asthma 606271118 J45.90 9 Intermitte nt symptoms - much improved per her report after quitting smoking. [id number] Malia Gonzalez MD MAIN OFFICE [address] [facility] [place] [address] 03/01/2023 11:40:08 03/04/2023 02:50:20 Obstructive sleep apnea of adult 0378101615 103 G47.33 Largely REM related mild CARMEN [...] interested in APAP therapy if required. Remembered [facility] as prior DME. She will check with her insurance if in network and when she could get set-up. [facility] staff suggested that pt will need [...] together she hung up again. Morbid obesity 529458078 E66.01 F/u with bariatric surgery team. Currently trying to eat healthy, daily exercise (treadmill , bedtime yoga).: Referral to different bariatric surgery program. Will check.01/11: Working on weight loss with nutritioni st, now at 225 lb - congrats.1 : Continues to lose weight (Denys, merryitian) , now at 220 lb. Insomnia 379607660 G47.0 1 Lately with current medication s [...] . Mixed anxi ety and depressive disorder 292868243 F41.8 F/u with mental health team. Seasonal a llergic rhinitis 746344471 J30.2 Intermitte nt symptoms, OTC meds. Asthma 741633148 J45.90 9 Intermitte nt symptoms - much [...] ID Guarantor Name 03/04/2023 1 PADMAJA (O) [id number] 1 Yomaira Alvarenga [id number] Yomaira Alvarenga Notes Date Note Type Note [...] in [facility] Clinic in collaboration with [facility]. She has started using Wegovy injections but does not want to stay on this. In this context she presents to the sleep clinic for re-evaluation of obstructive sleep apnea diagnosed prior to last bariatric surgery in 2019. Her PCP is Rhonda Mathew [facility]; for mental health care she sees Jennifer Fajardo MD, psychiatrist at [facility]. We requested medical records:Sleep Study 11/08/2018 [facility] ht 61 wt 258.4 lb.Low sleep efficiency 57% despite meds. Mild snoring, REM-predominant CARMEN with AHI 13/h, RDI 15/h, mean O2 sat 92%, min. O2 sat 78%, PLMI 0/h.Initial consult note 11/21/2018 with discussion of PSG results.Order for APAP 5 - 15 cm to [facility] [employer].Download APAP RM [employer] She reports [...] download for further evaluation. A download from [facility]/Miguelina from 11/30/18 to 02/27/19 showed regular [...] meds (see list) that are sedating. ESS: 5-7-1-0-1-0-0-0 = 09/10 (not driving herself) She does not feel much sleepiness, rather is fatigued at times, not aware of cataplexy, sleep paralysis, hypnagogic/hypnopompi c hallucinations. Malia Gonzalez MD [address], [place], [address], [facility] DB 10/15/2022 19:26:14 10/26/2022 text/html ROS as [...] [facility] for [facility] for duodenal switch surgery. [...] new bariatric surgery team. Malia Gonzalez MD [address], [place], [address], [facility] [place] [employer] DB 12/27/2022 05:52:30 01/11/2023 text/html ROS as noted in the HPI Ms Yomaira Alvarenga/Ana returns for f/u to discuss results from sleep study done for reevaluation of sleep apnea and agreed to a synchronous, 2 way communication telehealth visit. She was referred from first surgical team to other surgeon Geo Miranda MD for duodenal switch surgery around 10/25/22. A new lead care manager is Edith (phone [phone]). She is continuing weight loss with help of Wegovy injections and is currently at 225 lb.Congrats!Asthma appears well controlled wit Wisela BID, albuteral prn.No RLS.F/u with psychiatry for mental health and management of medications. In interim she had in-lab sleep study at [email or web address] on 11/12/22: Wt was around 236 [...] refreshing sleep.She had used in the past [employer] as DME for APAP around bariatric gastric sleeve surgery 01/31/2019. She had RM Airsense 10 [employer] 5 - 15 cm, ~ 11/30/2018 to 02/27/19 with nasal mask (Dreamwear nasal pillow?, allowing reading Andrews with glasses) and after mask change had good usage and mask fit. She will check with insurance and see if [facility] is in network. Otherwise will tell us other DME option. She thought that [employer] [address] [employer] in [place] was the office she used before. ( , FAX [phone].) After the visit we could reach [place] [...] use wedge in interim. Malia Gonzalez MD [address], [place], [address], [facility] [place] [employer] DB 03/04/2023 01:49:49 03/01/2023 text/html Ms [...] duodenal switch surgery around 10/25/22. A new lead care manager is Edtih (phone [phone]). She is continuing weight loss with help of Wegovy injections and is currently at 220 lb.Congrats! She had scheduled a visit with the dietitian right after this visit. As discussed in prior visit 01/11/23 she had in-lab sleep study at [facility] on 11/12/22: Wt was around 236 [...] due to lack of teeth.At last visit [facility] in [place] seems to have been the DME in [...] for mental health issues. Malia Gonzalez MD [address], [place], [address], [facility] [place] [employer] DB 03/04/2023 02:49:29 OBGyn Episode No OBEpisode recorded.
== END 2025-03-15 11:26 | disposition home or self-care (01) ==
LOC: ED 11:09
PROVIDERS: Emergency Provider Internal Medicine
DX: S02.40FA Zygomatic fracture, left side, initial encounter for closed fracture (principal); Z76.0 Encounter for issue of repeat prescription
CPT/HCPCS: 99283